=== PATIENT | female | born 1930 | race Caucasian/White ===

== ENCOUNTER 2018-05-17 08:26 | Emergency (ER) | payer MEDICARE, BC ==
[2018-05-17] MEDS ORDERED: Sodium Chloride 0.9% 10 ML Syringe FLUSH PRN (09:01)
[2018-05-17] MEDS ORDERED: Ondansetron 4 MG/2 ML SDV IVPUSH ONE (09:01)
[2018-05-17] MEDS ORDERED: Sodium Chloride 0.9% 1,000 ML IV SCH (09:15)
--- NOTE | 2018-05-17 11:10 | EDM.PDOC ---
ED HPI GENERAL MEDICAL PROBLEM - General Chief Complaint: Gastrointestinal Problem Stated Complaint: [facility] ABD[facility] Time Seen by Provider: 05/17/18 08:42 Source of Information: Reports: Patient, Family (Daughter), RN Notes Reviewed - History of Present Illness INITIAL COMMENTS - FREE TEXT/NARRATIVE: 88-year-old lady has been brought here by [facility] for evaluation of abdominal discomfort, nausea and nonspecific dizziness. She states she awakened in a "sweat" about 2 or 3 hours ago, fill somewhat lightheaded and dizzy for a period of time. She also did have some nausea but did not vomit. She has had no chest pain this morning or difficulty breathing. She continues to feel very mildly nauseated. She denies vertigo. She has no headache chest or abdominal pain at this time. She has had some constipation off and on. She had been taking MiraLAX in the past but not currently taking that. No melena or hematochezia. She last had a colonoscopy about 7 or 8 years ago. - Related Data Allergies Allergy/AdvReac Type Severity Reaction Status Date / Time Penicillins Allergy Rash Verified 01/13/18 14:53 Home Meds: Home Meds Aspirin [Halfprin] 81 mg PO BEDTIME 09/26/13 [History] Cholecalciferol (Vitamin D3) [Vitamin D3] 2,000 units PO DAILY 09/26/13 [History ] Losartan Potassium 50 mg PO QAM 08/27/14 [History] Metoprolol Succinate [Toprol XL] 200 mg PO BEDTIME 08/27/14 [History] DULoxetine [Cymbalta] 20 mg PO DAILY 12/19/17 [History] Polyethylene Glycol 3350 [MiraLAX] 17 gm PO DAILY #1 canister 12/19/17 [Rx] Rosuvastatin Calcium 10 mg PO BEDTIME 01/13/18 [History] Triamcinolone Acetonide [Triamcinolone Acetonide 0.1% Crm] 1 dose TOP BID [History] amLODIPine Besylate [Amlodipine Besylate] 10 mg PO DAILY 01/13/18 [History] Meclizine HCl 12.5 mg PO Q4H PRN 05/17/18 [History] Ondansetron [Zofran ODT] 4 mg PO Q8HR PRN #10 tab.dis 05/17/18 [Rx] Past Medical History HEENT 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: Hard of Hearing, Impaired Vision Other HEENT History: 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 Cardiovascular 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: Arrhythmia, Pacemaker Respiratory 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: Other (See Below) Other Respiratory History: cough Gastrointestinal 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: GERD Other Gastrointestinal History: bloating, small intestine bacterial overgrowth, nausea and vomiting Genitourinary 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: UTI, Recurrent [employer] 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: Other [employer]ER History: endometrial thickening, atrophic vaginitis, vaginal pruritis, pelvic pain Musculoskeletal 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: Back Pain, Chronic, Other (See Below) Other Musculoskeletal History: spinal stinosis repair Neurological 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: Migraines Other Neuro History: 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, increasing headaches/head pains Psychiatric 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: Anxiety, Depression, Other (See Below) Other Psychiatric History: insomnia Endocrine/Metabolic 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: Other (See Below) Other Endocrine/Metabolic History: inappropriate ADH production Hematologic 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: Anemia Immunologic 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: None Oncologic (Cancer) 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: None Dermatologic 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: Other (See Below) Other Dermatologic History: pruritis, seborrheic keratosis - Past Surgical History Head Surgeries/Procedures: Reports: None Respiratory Surgical 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: None Female Surgical 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: None Endocrine Surgical 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: None Other Musculoskeletal Surgeries/Procedures:: right hip replacement 7 years ago Oncologic Surgical 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: None Dermatological Surgical 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: None Social & Family History - Family History Family Medical History: Noncontributory Cardiac: Reports: CAD Oncologic: Reports: Breast - Tobacco Use Smoking Status *Q: Former Smoker Used Tobacco, but Quit: Yes Month/Year Tobacco Last Used: many years ago - Caffeine Use Caffeine Use: Reports: Coffee - Recreational Drug Use Recreational Drug Use: No - Living Situation & Occupation Living situation: Reports: Occupation: Retired ED ROS GENERAL - Review of Systems Review Of Systems: See Below Constitutional: Reports: Diaphoresis. Denies: Fever, Chills HEENT: Denies: Sinus Problem, Throat Pain (Gone) Respiratory: Denies: Shortness of Breath, Wheezing, Pleuritic Chest Pain, Cough Cardiovascular: Denies: Chest Pain Endocrine: Reports: Fatigue GI/Abdominal: Reports: Abdominal Pain, Constipation, Nausea (Gone). Denies: Diarrhea, Hematochezia, Melena (Occasional) Musculoskeletal: Denies: Neck Pain, Shoulder Pain, Arm Pain Skin: Reports: No Symptoms Neurological: Reports: Dizziness (No better). Denies: Trouble Speaking (No focal weakness), Weakness ED EXAM, GI/ABD - Physical Exam Exam: See Below General Appearance: Alert, No Apparent Distress Eyes: Bilateral: Normal Appearance Throat/Mouth: Normal Inspection, Normal Oropharynx Head: Atraumatic Neck: Supple, Full Range of Motion Respiratory/Chest: No Respiratory Distress, Lungs Clear, Normal Breath Sounds Cardiovascular: Regular Rate, Rhythm GI/Abdominal Exam: Soft, Non-Tender. No: Guarding Rectal (Female) Exam: Normal Exam, Normal Rectal Tone, Heme - Stool, Other (No mass palpable) Back Exam: No: CVA Tenderness (L), CVA Tenderness (R) Extremities: Normal Inspection. No: Pedal Edema, Leg Pain, Increased Warmth, Redness Neurological: Alert, Oriented, No Motor/Sensory Deficits Skin Exam: Warm, Dry, Normal Color EKG INTERPRETATION EKG Date: 05/17/18 Rhythm: Other (Paced rhythm) Rate (Beats/Min): 60 Course - Vital Signs Last Recorded V/S: Last Vital Signs Temp 97.3 F 05/17/18 08:43 Pulse 62 05/17/18 08:43 Resp 16 05/17/18 08:43 BP 157/74 H 05/17/18 08:43 Pulse Ox 98 05/17/18 08:43 - Orders/Labs/Meds Orders: Active Orders 24 hr Category Date Time Status EKG 12 Lead [EKG Documentation Completion] [RC] STAT Care 05/17/18 09:01 Active Peripheral IV Care [RC] . DIRECTED Care 05/17/18 09:02 Active Sodium Chloride 0.9% [Normal Saline] 1,000 ml Med 05/17/18 09:15 Active IV ASDIRECTED Sodium Chloride 0.9% [Saline Flush] Med 05/17/18 09:01 Active 10 ml FLUSH ASDIRECTED PRN Peripheral IV Insertion Adult [OM.PC] Stat Oth 05/17/18 09:01 Ordered Medication Orders Sodium Chloride (Normal Saline) 1,000 mls @ 150 mls/hr IV ASDIRECTED KYLE Last Admin: 05/17/18 09:11 Dose: 150 mls/hr Sodium Chloride (Saline Flush) 10 ml FLUSH ASDIRECTED PRN PRN Reason: Keep Vein Open Last Admin: 05/17/18 09:11 Dose: 10 ml Labs: Laboratory Tests 05/17/18 05/17/18 05/17/18 Range/Units 08:45 08:45 08:45 WBC 9.27 (3.98-10.04) K/mm3 RBC 4.21 (3.98-5.22) M/mm3 Hgb 13.9 (11.2-15.7) gm/L Hct 41.7 (34.1-44.9) % MCV 99.0 H (79.4-94.8) fl MCH 33.0 H (25.6-32.2) pg MCHC 33.3 (32.2-35.5) g/dl RDW Std Deviation 43.6 (36.4-46.3) fL Plt Count 251 (182-369) K/mm3 MPV 9.6 (9.4-12.3) fl Neut % (Auto) 84.2 H (34.0-71.1) % Lymph % (Auto) 8.6 L (19.3-51.7) % [place] % (Auto) 6.6 (4.7-12.5) % Eos % (Auto) 0.3 L (0.7-5.8) Baso % (Auto) 0.1 (0.1-1.2) % Neut # (Auto) 7.80 H (1.56-6.13) K/mm3 Lymph # (Auto) 0.80 L (1.18-3.74) K/mm3 [place] # (Auto) 0.61 H (0.24-0.36) K/mm3 Eos # (Auto) 0.03 L (0.04-0.36) K/mm3 Baso # (Auto) 0.01 (0.01-0.08) K/mm3 Manual Slide Review Normal smear Sodium 135 L (136-145) mEq/L Potassium 3.6 (3.5-5.1) mEq/L Chloride 98 (98-107) mEq/L Carbon Dioxide 29 (21-32) mEq/L Anion Gap 11.6 (5-15) BUN 11 (7-18) mg/dL Creatinine 0.6 (0.55-1.02) mg/dL Est Cr Clr Drug Dosing 64.24 mL/min Estimated GFR (MDRD) > 60 (>60) mL/min BUN/Creatinine Ratio 18.3 H (14-18) Glucose 124 H (83-115) mg/dL Calcium 9.2 (8.5-10.1) mg/dL Total Bilirubin 0.9 (0.2-1.0) mg/dL AST 25 (15-37) U/L ALT 24 (14-59) U/L Alkaline Phosphatase 78 (46-116) U/L Troponin I < 0.017 (0.00-0.056) ng/mL C-Reactive Protein < 0.2 (<1.0) mg/dL Total Protein 8.4 H (6.4-8.2) g/dl Albumin 4.4 (3.4-5.0) g/dl Globulin 4.0 gm/dL Albumin/Globulin Ratio 1.1 (1-2) Urine Color (Yellow) Urine Appearance (Clear) Urine pH (5.0-8.0) Ur Specific [place] (1.005-1.030) Urine Protein (Negative) Urine Glucose (UA) (Negative) Urine Ketones (Negative) Urine Occult Blood (Negative) Urine Nitrite (Negative) Urine Bilirubin (Negative) Urine Urobilinogen (0.2-1.0) Ur Leukocyte Esterase (Negative) Urine RBC (0-5) /hpf Urine WBC (0-5) /hpf Ur Epithelial Cells (0-5) /hpf Amorphous Sediment (NOT SEEN) /hpf Urine Bacteria (FEW) /hpf Urine Mucus (FEW) /hpf 05/17/18 Range/Units 08:50 WBC (3.98-10.04) K/mm3 RBC (3.98-5.22) M/mm3 Hgb (11.2-15.7) gm/L Hct (34.1-44.9) % MCV (79.4-94.8) fl MCH (25.6-32.2) pg MCHC (32.2-35.5) g/dl RDW Std Deviation (36.4-46.3) fL Plt Count (182-369) K/mm3 MPV (9.4-12.3) fl Neut % (Auto) (34.0-71.1) % Lymph % (Auto) (19.3-51.7) % [place] % (Auto) (4.7-12.5) % Eos % (Auto) (0.7-5.8) Baso % (Auto) (0.1-1.2) % Neut # (Auto) (1.56-6.13) K/mm3 Lymph # (Auto) (1.18-3.74) K/mm3 [place] # (Auto) (0.24-0.36) K/mm3 Eos # (Auto) (0.04-0.36) K/mm3 Baso # (Auto) (0.01-0.08) K/mm3 Manual Slide Review Sodium (136-145) mEq/L Potassium (3.5-5.1) mEq/L Chloride (98-107) mEq/L Carbon Dioxide (21-32) mEq/L Anion Gap (5-15) BUN (7-18) mg/dL Creatinine (0.55-1.02) mg/dL Est Cr Clr Drug Dosing mL/min Estimated GFR (MDRD) (>60) mL/min BUN/Creatinine Ratio (14-18) Glucose (83-115) mg/dL Calcium (8.5-10.1) mg/dL Total Bilirubin (0.2-1.0) mg/dL AST (15-37) U/L ALT (14-59) U/L Alkaline Phosphatase (46-116) U/L Troponin I (0.00-0.056) ng/mL C-Reactive Protein (<1.0) mg/dL Total Protein (6.4-8.2) g/dl Albumin (3.4-5.0) g/dl Globulin gm/dL Albumin/Globulin Ratio (1-2) Urine Color Yellow (Yellow) Urine Appearance Clear (Clear) Urine pH 7.5 (5.0-8.0) Ur Specific [place] 1.020 (1.005-1.030) Urine Protein Negative (Negative) Urine Glucose (UA) Negative (Negative) Urine Ketones Negative (Negative) Urine Occult Blood Negative (Negative) Urine Nitrite Negative (Negative) Urine Bilirubin Negative (Negative) Urine Urobilinogen 0.2 (0.2-1.0) Ur Leukocyte Esterase Negative (Negative) Urine RBC 0-5 (0-5) /hpf Urine WBC 0-5 (0-5) /hpf Ur Epithelial Cells 0-5 (0-5) /hpf Amorphous Sediment Few H (NOT SEEN) /hpf Urine Bacteria Few (FEW) /hpf Urine Mucus Few (FEW) /hpf Meds: Medications Generic Name Dose Route Start Last Admin Trade Name Freq PRN Reason Stop Dose Admin Sodium Chloride 1,000 mls @ 150 mls/hr 05/17/18 09:15 05/17/18 09:11 Normal Saline IV 150 mls/hr ASDIRECTED KYLE Administration Sodium Chloride 10 ml 05/17/18 09:01 05/17/18 09:11 Saline Flush FLUSH 10 ml ASDIRECTED PRN Administration Keep Vein Open Discontinued Medications Generic Name Dose Route Start Last Admin Trade Name Freq PRN Reason Stop Dose Admin Ondansetron HCl 4 mg 05/17/18 09:01 05/17/18 09:11 Zofran IVPUSH 05/17/18 09:02 4 mg ONETIME ONE Administration - Re-Assessments/Exams Free Text/Narrative Re-Assessment/Exam: 05/17/18 11:27 EKG showed paced rhythm as documented. White blood count, chemistries normal, troponin normal. I did review flat and upright of 2 days ago which shows generous stool in the colon but no obvious abnormality. No mass palpable on rectal exam. Stool was brown, heme-negative, she feels better after some IV fluid and IV Zofran. Discharge instructions as documented. Departure - Departure Time of Disposition: 11:09 Disposition: Home, Self-Care 01 Condition: Fair Clinical Impression: Dizziness, Nausea - Discharge Information Prescriptions: Ondansetron [Zofran ODT] 4 mg PO Q8HR PRN #10 tab.dis PRN Reason: Nausea/Vomiting Instructions: Nausea, Adult, Dizziness, [id number] Referrals: PCP,None [Primary Care Provider] - Forms: ED Department Discharge Additional Instructions: Clear liquids and very bland diet as tolerated, continue current medications as prescribed, drink plenty of water to maintain hydration. miralax daily as needed, stool softner once or twice daily as needed. See Kristin back at the clinic Saturday or Saturday and work hard for referral for colonoscopy, upper GI endoscopy as soon as possible. Zofran 4 mg ODT Q8 hours if needed for further nausea or vomiting. Return to ED as needed if symptoms worsening in any way. - My Orders Last 24 Hours: My Active Orders 05/17/18 09:01 EKG 12 Lead [EKG Documentation Completion] [RC] STAT Sodium Chloride 0.9% [Saline Flush] 10 ml FLUSH ASDIRECTED PRN Peripheral IV Insertion Adult [OM.PC] Stat 05/17/18 09:02 Peripheral IV Care [RC] . DIRECTED 05/17/18 09:15 Sodium Chloride 0.9% [Normal Saline] 1,000 ml IV ASDIRECTED - Assessment/Plan Last 24 Hours: My Active Orders 05/17/18 09:01 EKG 12 Lead [EKG Documentation Completion] [RC] STAT Sodium Chloride 0.9% [Saline Flush] 10 ml FLUSH ASDIRECTED PRN Peripheral IV Insertion Adult [OM.PC] Stat 05/17/18 09:02 Peripheral IV Care [RC] . DIRECTED 05/17/18 09:15 Sodium Chloride 0.9% [Normal Saline] 1,000 ml IV ASDIRECTED
[2018-05-17 11:45] VITALS: BP 132/52
== END 2018-05-17 11:45 | disposition home or self-care (01) ==
LOC: JD.ED 08:26
DX: R11.0 Nausea (principal); R42 Dizziness and giddiness; K21.9 Gastro-esophageal reflux disease without esophagitis; F41.9 Anxiety disorder, unspecified; F32.9 Major depressive disorder, single episode, unspecified; Z87.891 Personal history of nicotine dependence; Z88.0 Allergy status to penicillin; Z79.899 Other long term (current) drug therapy; Z79.82 Long term (current) use of aspirin
CPT/HCPCS: 36415; 80053; 81001; 84484; 85025; 86140; 93005; 96361; 96374; 99284; J2405; J7040; 93010; 99283

== ENCOUNTER 2019-04-06 07:30 | Inpatient (IN) | payer MEDICARE, BC ==
[~2019-04-06 07:30] MED LIST: Bisacodyl 5 MG Tab PO PRN; Ketamine 500 mg/10 ML MDV ONE; Ketorolac 30 MG/ML SDV ONE; Lactated Ringers 0 ML ONE; Lactated Ringers 1,000 ML IV SCH; Lactated Ringers 1,000 ML ONE; Lidocaine 1% 0 ML ONE; Lidocaine 1% 6 ML ONE; Lidocaine 1%/Sod Bicarbonate in NS 8.4% 1 ML Syringe IDERM PRN; Magnesium Hydroxide 400 MG/5 ML Susp 30 ML Cup PO PRN; Midazolam 1 MG/ML 2 ML SDV ONE; Morphine 2 MG/ML Syringe IVPUSH PRN; Morphine 8 MG, EPINEPHrine 0.3 MG, Cefuroxime 750 MG, Ketorolac 30 MG, Sodium Chloride ... PRN; Naloxone 0.4 MG/ML SDV IVPUSH PRN; Ondansetron 4 MG/2 ML SDV IVPUSH PRN; Ondansetron 4 MG/2 ML SDV ONE; Propofol 200 MG/20 ML SDV ONE; Sennosides 8.6 MG Tab PO PRN; Sodium Chloride 0.9% 10 ML Syringe FLUSH PRN; ceFAZolin 1 GM Vial ONE; fentaNYL 100 MCG/2 ML SDV ONE
[2019-04-06] MEDS ORDERED: ceFAZolin 1 GM Vial ONE (10:29)
[2019-04-06] MEDS ORDERED: Iodine/Sodium Iodide 2% Tincture 30 ML Bottle ONE (10:29)
[2019-04-06] MEDS ORDERED: Vancomycin 1 GM SDV ONE (10:29)
[2019-04-06] MEDS ORDERED: Bupivacaine 0.25% 10 ML SDV ONE (10:29)
--- NOTE | 2019-04-06 11:06 | PCM.PREANE ---
Preanesthetic Assessment - Anesthesia/Transfusion/Family Hx Anesthesia History: Prior Anesthesia Without Reaction Family History of Anesthesia Reaction: No Transfusion History: No Prior Transfusion(s) Intubation History: Unknown - Review of Systems General: No Symptoms Pulmonary: Other Cardiovascular: Other (pacemaker, CHF, HTN, ) Gastrointestinal: Other (GERD, controlled on meds) Other: Reports: Easy Bleeding, Easy Bruising, Diabetes - Physical Assessment NPO Status Date: 04/05/19 ASA Class: 3 Mental Status: Alert & Oriented x3 Dentition: Reports: Dentures, Partial (lower) Thyro-Mental Finger Breadths: 3 Mouth Opening Finger Breadths: 3 ROM/Head Extension: Full Lungs: Clear to Auscultation, Normal Respiratory Effort Cardiovascular: Regular Rate, Regular Rhythm - Lab Values: Laboratory Last Values POC Glucose 108 mg/dL (83-110) 04/06/19 10:13 MRSA (PCR) Negative 03/11/19 16:18 - Allergies Allergies/Adverse Reactions: Allergies Allergy/AdvReac Type Severity Reaction Status Date / Time ciprofloxacin Allergy Rash Verified 04/03/19 11:39 Penicillins Allergy Rash Verified 04/03/19 11:39 - Anesthesia Plan Beta Wilman: Metoprolol - Acknowledgements Anesthesia Type Planned: Spinal Pt an Appropriate Candidate for the Planned Anesthesia: Yes Alternatives and Risks of Anesthesia Discussed w Pt/Guardian: Yes Pt/Guardian Understands and Agrees with Anesthesia Plan: Yes PreAnesthesia Questionnaire HEENT 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: Allergic Rhinitis, Hard of Hearing, Impaired Vision Other HEENT History: eustachian tube dysfunction, impacted cerumen, chronic hoarseness, wears glasses, has hearing aids, has dentures Cardiovascular 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: Afib, Arrhythmia, Heart Failure, Hypertension, Pacemaker Respiratory 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: COPD, Other (See Below) Other Respiratory History: cough Gastrointestinal 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: Gastritis, GERD, Hemorrhoids, Irritable Bowel Syndrome Other Gastrointestinal History: bloating, small intestine bacterial overgrowth, nausea and vomiting, epigastric pain, candidia esophagitis Genitourinary 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: UTI, Recurrent BREAD ROOM HAND 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: , Other (See Below) Other OB/BYN History: endometrial thickening, atrophic vaginitis, vaginal pruritis, pelvic pain Musculoskeletal 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: Back Pain, Chronic, Osteoarthritis, Osteoporosis, Other (See Below) Other Musculoskeletal History: left 3rd toe fracute, bursitis, polymyalgia rheumatica, right knee pain, sacroilitis Neurological 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: Migraines Other Neuro History: traumatic subdural hematoma, neuralgia, peripheral sensory neuropathy, dizziness, notalgia parestetica, cervical stenosis, trigeminal neuralgia Psychiatric 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: Anxiety, Depression, Other (See Below) Other Psychiatric History: insomnia Endocrine/Metabolic 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: Vitamin D Deficiency, Other (See Below) Other Endocrine/Metabolic History: inappropriate ADH production Hematologic 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: Anemia, Other (See Below) Other Hematologic History: hyponatremia Immunologic 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: None Oncologic (Cancer) 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: None Dermatologic 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: Other (See Below) Other Dermatologic History: pruritis, seborrheic keratosis - Past Surgical History Head Surgeries/Procedures: Reports: None HEENT Surgical 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: Cataract Surgery Cardiovascular Surgical 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: None Respiratory Surgical 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: None GI Surgical 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: Colonoscopy Female Surgical 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: None Male Surgical 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: None Endocrine Surgical 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: None Neurological Surgical 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: Other (See Below) Other Neurological Surgeries/Procedures: spinal surgery Musculoskeletal Surgical 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: Hip Replacement Other Musculoskeletal Surgeries/Procedures:: right total hip, t7 kyphoplasty, elbow surgery Oncologic Surgical 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: None Dermatological Surgical 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: None - SUBSTANCE USE Smoking Status *Q: Never Smoker Recreational Drug Use History: No - HOME MEDS Home Medications: Home Meds Losartan Potassium 50 mg PO QAM 08/27/14 [History] Metoprolol Succinate [Toprol XL] 100 mg PO BID 08/27/14 [History] DULoxetine [Cymbalta] 20 mg PO DAILY 12/19/17 [History] Rosuvastatin Calcium 10 mg PO BEDTIME 01/13/18 [History] Triamcinolone Acetonide [Triamcinolone Acetonide 0.1% Crm] 1 dose TOP BID [History] Apixaban [Eliquis] 5 mg PO BID 04/03/19 [History] Cholecalciferol (Vitamin D3) [Vitamin D3] 5,000 unit PO DAILY 04/03/19 [History] Cranberry Fruit Extract [Cranberry] 200 mg PO DAILY 04/03/19 [History] Docusate Sodium [Colace] 100 mg PO BID PRN 04/03/19 [History] Fluticasone Propionate [Flonase] 1 dose NASBOTH BID PRN 04/03/19 [History] Linaclotide [Linzess] 72 mcg PO DAILY 04/03/19 [History] Omeprazole 20 mg PO DAILY 04/03/19 [History] Sodium Chloride 1,000 - 2,000 mg PO DAILY 04/03/19 [History] amLODIPine Besylate [Amlodipine Besylate] 10 mg PO DAILY 04/03/19 [History] - CURRENT (IN HOUSE) MEDS Current Meds: Current Medications Hydrocodone Bitart/Acetaminophen ([place] 325-5 Mg) 1 - 2 tab PO Q4H PRN PRN Reason: Pain Bisacodyl (Dulcolax) 5 mg PO DAILY PRN PRN Reason: Constipation Morphine Sulfate 8 mg/Epinephrine HCl 0.3 mg/Cefuroxime Sodium 750 mg/Ketorolac Tromethamine 30 mg/Sodium Chloride 7.9 ml 0 mg .XX ASDIRECTED PRN PRN Reason: Pain Stop: 04/06/19 14:00 Famotidine (Pepcid) 20 mg PO Q12H KYLE Lactated Ringer's (Ringers, Lactated) 1,000 mls @ 125 mls/hr IV ASDIRECTED KYLE Stop: 04/06/19 23:00 Cefazolin Sodium/Dextrose 2 gm (/ Premix) 50 mls @ 100 mls/hr IV Q8H [facility] Stop: 04/07/19 07:29 Lidocaine/Sodium Bicarbonate (Buffered Lidocaine 1% In Ns 8.4%) 0.25 ml IDERM ONETIME PRN PRN Reason: Prior to IV Start Stop: 04/06/19 18:00 Magnesium Hydroxide (Milk Of Magnesia) 30 ml PO BID PRN PRN Reason: Constipation Morphine Sulfate (Morphine) 2 mg IVPUSH Q2H PRN PRN Reason: Breakthrough Pain Naloxone HCl (Narcan) 0.1 mg IVPUSH Q5M PRN PRN Reason: Oversedation Ondansetron HCl (Zofran) 4 mg IVPUSH Q6H PRN PRN Reason: Nausea/Vomiting Senna (Senna) 8.6 mg PO BID PRN PRN Reason: Constipation Sodium Chloride (Saline Flush) 10 ml FLUSH ASDIRECTED PRN PRN Reason: Keep Vein Open Stop: 04/06/19 18:00 Discontinued Medications Bupivacaine HCl (Sensorcaine-Mpf 0.25%) Confirm Administered Dose 30 ml .ROUTE .STK-MED ONE Stop: 04/06/19 10:30 Cefazolin Sodium (Ancef) Confirm Administered Dose 2 gm .ROUTE .ST-MED ONE Stop: 04/06/19 06:04 Cefazolin Sodium (Ancef) Confirm Administered Dose 2 gm .ROUTE .ST-MED ONE Stop: 04/06/19 06:30 Cefazolin Sodium (Ancef) Confirm Administered Dose 2 gm .ROUTE .ST-MED ONE Stop: 04/06/19 10:30 Fentanyl (Sublimaze) Confirm Administered Dose 100 mcg .ROUTE .ST-MED ONE Stop: 04/06/19 06:04 Fentanyl (Sublimaze) Confirm Administered Dose 100 mcg .ROUTE .ST-MED ONE Stop: 04/06/19 06:30 Lidocaine HCl (Xylocaine-Mpf 1%) Confirm Administered Dose 6 mls @ as directed .ROUTE .[facility]-MED ONE Stop: 04/06/19 06:04 Lactated Ringer's (Ringers, Lactated) Confirm Administered Dose 1,000 mls @ as directed .ROUTE .ST-MED ONE Stop: 04/06/19 06:04 Lactated Ringer's (Ringers, Lactated) Confirm Administered Dose 1,000 mls @ as directed .ROUTE .ST-MED ONE Stop: 04/06/19 06:29 Lidocaine HCl (Xylocaine-Mpf 1%) Confirm Administered Dose 6 mls @ as directed .ROUTE .ST-MED ONE Stop: 04/06/19 06:30 Iodine (Iodine 2% Mild Tincture) Confirm Administered Dose 30 ml .ROUTE .ST- MED ONE Stop: 04/06/19 10:30 Ketamine HCl (Ketalar) Confirm Administered Dose 500 mg .ROUTE .STK-MED ONE Stop: 04/06/19 06:05 Ketamine HCl (Ketalar) Confirm Administered Dose 500 mg .ROUTE .ST-MED ONE Stop: 04/06/19 06:31 Ketorolac Tromethamine (Toradol) Confirm Administered Dose 30 mg .ROUTE .STK- MED ONE Stop: 04/06/19 06:04 Midazolam HCl (Versed 1 Mg/Ml) Confirm Administered Dose 2 mg .ROUTE .ST-MED ONE Stop: 04/06/19 06:04 Midazolam HCl (Versed 1 Mg/Ml) Confirm Administered Dose 2 mg .ROUTE .STK-MED ONE Stop: 04/06/19 06:31 Miscellaneous Medication (Phenylephrine 1 Mg/10 Ml-Ns) Confirm Administered Dose 1 mg IV .STK-MED ONE Stop: 04/06/19 06:04 Miscellaneous Medication (Phenylephrine 1 Mg/10 Ml-Ns) Confirm Administered Dose 1 mg IV .STK-MED ONE Stop: 04/06/19 06:30 Ondansetron HCl (Zofran) Confirm Administered Dose 4 mg .ROUTE .STK-MED ONE Stop: 04/06/19 06:04 Ondansetron HCl (Zofran) Confirm Administered Dose 4 mg .ROUTE .STK-MED ONE Stop: 04/06/19 06:30 Propofol (Diprivan 20 Ml) Confirm Administered Dose 400 mg .ROUTE .STK-MED ONE Stop: 04/06/19 06:04 Propofol (Diprivan 20 Ml) Confirm Administered Dose 400 mg .ROUTE .STK-MED ONE Stop: 04/06/19 06:30 Tranexamic Acid (Cyklokapron) Confirm Administered Dose 1,000 mg .ROUTE .STK- MED ONE Stop: 04/06/19 10:29 Vancomycin HCl (Vancomycin) Confirm Administered Dose 1 gm .ROUTE .STK-MED ONE Stop: 04/06/19 10:30
--- NOTE | 2019-04-06 11:39 | PCM.CONS ---
H&P History of Present Illness - General Date of Service: 04/06/19 Admit Problem/Dx: Admission Diagnosis/Problem Admission Diagnosis/Problem Osteoarthritis of hip Source of Information: Patient, Old Records, Provider, RN, RN Notes Reviewed History Limitations: Reports: No Limitations - History of Present Illness Initial Comments - Free Text/Narative: Shae Lane is an 89 yo female patient of Dr. Corbin who is post-operative day 0 of left FABI. Hospital medicine was consulted for post-operative medical care of the following listed medical conditions. At this time she is resting comfortably in bed. Pain is controlled. She denies any chest pain, shortness of breath, palpitations, nausea, or vomiting. She carries a history of: Paroxysmal A-Fib, HTN, HLD, Pacemaker, Chronic anticoagulation, GERD, Polymyalgia Rheumatica, COPD, Hx/o subdural hematoma 2/2 a fall, Anxiety, Arthritis, Cardiomegaly, Depression, CHF with diastolic dysfunction, Diverticulosis, Dizzy spells, Edema, Elevated fasting glucose, Headache, Hiatal hernia, Hyponatremia, IBS, Insomnia, Mitral valve prolapse with mitral regurgitation, Overactive bladder, Osteoporosis, Peripheral sensory neuropathy, Recurrent UTIs, SIADH, Small intestine disorder, Sick sinus syndrome, TMJ, Trigeminal neuralgia, Umbilical hernia, notalgia paresthetica, Cervical stenosis, Vitamin D deficiency , Anemia, Migraines. She was never a smoker. She is a full code. Her primary care provider is Jennifer Hayes PA-C . Left Hip Pain Score (Numeric/FACES): 0 - Related Data Allergies/Adverse Reactions: Allergies Allergy/AdvReac Type Severity Reaction Status Date / Time ciprofloxacin Allergy Rash Verified 04/06/19 11:26 Penicillins Allergy Rash Verified 04/06/19 11:26 Home Medications: Home Meds Losartan Potassium 50 mg PO QAM 08/27/14 [History] Triamcinolone Acetonide [Triamcinolone Acetonide 0.1% Crm] 1 dose TOP ASDIRECTED PRN 01/13/18 [History] Apixaban [Eliquis] 5 mg PO BID 04/03/19 [History] Cholecalciferol (Vitamin D3) [Vitamin D3] 5,000 unit PO DAILY 04/03/19 [History] Cranberry Fruit Extract [Cranberry] 200 mg PO DAILY 04/03/19 [History] Fluticasone Propionate [Flonase] 1 dose NASBOTH BID PRN 04/03/19 [History] Linaclotide [Linzess] 72 mcg PO TIDMEALS 04/03/19 [History] Sodium Chloride 1,000 mg PO BID 04/03/19 [History] amLODIPine Besylate [Amlodipine Besylate] 10 mg PO DAILY 04/03/19 [History] DULoxetine [Cymbalta] 20 mg PO DAILY 04/06/19 [History] Docusate Sodium/Sennosides [Senna Plus] 2 tab PO BEDTIME 04/06/19 [History] Ketotifen Fumarate [Zaditor] 1 drop OP ASDIRECTED PRN 04/06/19 [History] Loratadine 10 mg PO DAILY 04/06/19 [History] Metoprolol Tartrate 100 mg PO BID 04/06/19 [History] Pantoprazole Sodium [Protonix] 40 mg PO DAILY 04/06/19 [History] Rosuvastatin [Crestor] 5 mg PO BEDTIME 04/06/19 [History] Past Medical History HEENT 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: Allergic Rhinitis, Hard of Hearing, Impaired Vision Other HEENT History: eustachian tube dysfunction, impacted cerumen, chronic hoarseness, wears glasses, has hearing aids, has dentures Cardiovascular 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: Afib, Arrhythmia, Heart Failure, Hypertension, Pacemaker Respiratory 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: COPD, Other (See Below) Other Respiratory History: cough Gastrointestinal 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: Gastritis, GERD, Hemorrhoids, Irritable Bowel Syndrome Other Gastrointestinal History: bloating, small intestine bacterial overgrowth, nausea and vomiting, epigastric pain, candidia esophagitis Genitourinary 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: UTI, 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: , Other (See Below) Other OB/BYN History: endometrial thickening, atrophic vaginitis, vaginal pruritis, pelvic pain Musculoskeletal 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: Back Pain, Chronic, Osteoarthritis, Osteoporosis, Other (See Below) Other Musculoskeletal History: left 3rd toe fracute, bursitis, polymyalgia rheumatica, right knee pain, sacroilitis Neurological 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: Migraines Other Neuro History: traumatic subdural hematoma, neuralgia, peripheral sensory neuropathy, dizziness, notalgia parestetica, cervical stenosis, trigeminal neuralgia Psychiatric 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: Anxiety, Depression, Other (See Below) Other Psychiatric History: insomnia Endocrine/Metabolic 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: Vitamin D Deficiency, Other (See Below) Other Endocrine/Metabolic History: inappropriate ADH production Hematologic 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: Anemia, Other (See Below) Other Hematologic History: hyponatremia Immunologic 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: None Oncologic (Cancer) 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: None Dermatologic 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: Other (See Below) Other Dermatologic History: pruritis, seborrheic keratosis - Past Surgical History Head Surgeries/Procedures: Reports: None HEENT Surgical 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: Cataract Surgery Cardiovascular Surgical 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: None Respiratory Surgical 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: None GI Surgical 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: Colonoscopy Female Surgical 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: None Male Surgical 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: None Endocrine Surgical 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: None Neurological Surgical 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: Other (See Below) Other Neurological Surgeries/Procedures: spinal surgery Musculoskeletal Surgical 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: Hip Replacement Other Musculoskeletal Surgeries/Procedures:: right total hip, t7 kyphoplasty, elbow surgery Oncologic Surgical 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: None Dermatological Surgical 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: None Social & Family History - Family History Family Medical History: Noncontributory Cardiac: Reports: CAD Oncologic: Reports: Breast - Tobacco Use Smoking Status *Q: Never Smoker - Caffeine Use Caffeine Use: Reports: Coffee - Recreational Drug Use Recreational Drug Use: No Drug Use in Last 12 Months: No - Living Situation & Occupation Living situation: Reports: Occupation: Retired H&P Review of Systems - Review of Systems: Review Of Systems: See Below General: Reports: No Symptoms. Denies: Fever, Chills HEENT: Reports: No Symptoms. Denies: Headaches, Sore Throat Pulmonary: Reports: No Symptoms. Denies: Shortness of Breath, Wheezing, Pleuritic Chest Pain, Cough, Sputum Cardiovascular: Reports: No Symptoms. Denies: Chest Pain, Palpitations, Dyspnea on Exertion Gastrointestinal: Reports: No Symptoms. Denies: Abdominal Pain, Constipation, Diarrhea, Nausea, Vomiting Genitourinary: Reports: No Symptoms Musculoskeletal: Reports: Leg Pain Skin: Reports: No Symptoms. Denies: Cyanosis Psychiatric: Reports: No Symptoms. Denies: Confusion Neurological: Reports: Difficulty Walking, Gait Disturbance Hematologic/Lymphatic: Reports: No Symptoms. Denies: Anemia Immunologic: Reports: No Symptoms Exam - Exam Exam: See Below - Vital Signs Vital Signs: Last Vital Signs Temp 97.5 F 02/17/20 09:50 Pulse 79 04/06/19 09:50 Resp 18 04/06/19 09:50 BP 159/58 H 04/06/19 11:10 Pulse Ox 93 L 04/06/19 09:50 Weight: 132 lb - Exam Quality Assessment: DVT Prophylaxis General: Alert, Oriented, Cooperative. No: Mild Distress HEENT: Conjunctiva Clear, EACs Clear, Hearing Intact, Mucosa Moist & Sibley, Normal Nasal Septum, Posterior Pharynx Clear, PERRLA Neck: Supple, Trachea Midline Lungs: Clear to Auscultation, Normal Respiratory Effort Cardiovascular: Regular Rate, Regular Rhythm GI/Abdominal Exam: Normal Bowel Sounds, Soft, Non-Tender, No Distention (Female) Exam: Deferred Rectal (Female) Exam: Deferred Back Exam: Normal Inspection, Full Range of Motion Extremities: Normal Capillary Refill, Leg Pain, Limited Range of Motion, Other ( Bandage in place on left leg. Bandage is dry and intact. Cooling pack in place. ) Peripheral Pulses: 2+: Radial (L), Radial (R), Dorsalis Pedis (L), Dorsalis Pedis (R) Skin: Warm, Dry, Intact Neurological: Cranial Nerves Intact (Grossly ) Neuro Extensive - Mental Status: Alert, Oriented x3, Normal Mood/Affect - Patient Data Lab Results Last 24 hrs: Laboratory Results - last 24 hr 04/06/19 04/06/19 Range/Units 10:12 10:13 POC Glucose 108 (83-110) mg/dL Blood Type A POSITIVE Gel Antibody Screen Negative Sepsis Event Note - Focused Exam Vital Signs: Vital Signs Temp Pulse Resp BP Pulse Ox 04/06/19 11:10 159/58 H 04/06/19 09:50 97.5 F 79 18 164/71 H 93 L Date Exam was Performed: 04/06/19 Time Exam was Performed: 16:46 Consult PN Assessment/Plan POD#: 0 Procedures: Procedures AGENT NOS ASSAY W/OPTIC (08/27/14) ASSAY OF AMYLASE (07/25/13) ASSAY OF BLOOD/URIC ACID (07/10/16) ASSAY OF CK (CPK) (07/31/17) ASSAY OF LIPASE (03/06/17) ASSAY OF MAGNESIUM (12/19/17) ASSAY OF NATRIURETIC PEPTIDE (05/02/18) ASSAY OF PREALBUMIN (03/25/19) ASSAY OF TROPONIN QUANT (05/17/18) ASSAY OF URINE OSMOLALITY (04/21/14) ASSAY OF URINE SODIUM (04/21/14) ASSAY THYROID STIM HORMONE (05/02/18) BL SMEAR W/DIFF WBC COUNT (12/19/17) BLOOD CULTURE FOR BACTERIA (08/27/14) C-REACTIVE PROTEIN (05/17/18) CHEST X-RAY 2VW FRONTAL&LATL (08/31/14) COMPLETE CBC AUTOMATED (11/19/18) COMPLETE CBC W/AUTO DIFF WBC (05/17/18) COMPREHEN METABOLIC PANEL (03/25/19) CONTRST X-RAY UPPR GI TRACT (03/15/17) CREATINE MB FRACTION (08/27/14) CT ABD & PELV 1/> REGNS (04/29/14) CT ABD & PELV W/CONTRAST (01/31/16) CT ABD & PELVIS W/O CONTRAST (07/15/13) CT ANGIOGRAPHY CHEST (08/27/14) CT CHEST SPINE W/O DYE (12/19/17) CT HEAD/BRAIN W/O DYE (08/27/14) CT THORAX W/O DYE (09/29/18) CULTURE OTHR SPECIMN AEROBIC (05/07/18) DRAIN/INJ JOINT/BURSA W/O US (01/13/19) DXA BONE DENSITY AXIAL (03/27/19) ELECTROCARDIOGRAM TRACING (05/17/18) EMERGENCY DEPT VISIT (05/17/18) EMERGENCY DEPT VISIT (08/27/14) EMERGENCY DEPT VISIT (09/26/13) EVALUATE PT USE OF INHALER (08/31/14) FIBRIN DEGRADATION QUANT (08/27/14) GLYCOSYLATED HEMOGLOBIN TEST (03/25/19) HPYLORI STOOL IA (02/01/16) HYDRATE IV INFUSION ADD-ON (05/17/18) LIPID PANEL (09/12/18) MEASURE BLOOD OXYGEN LEVEL (08/27/14) METABOLIC PANEL TOTAL CA (07/12/16) MICROBE SUSCEPTIBLE HAYLEE (05/27/17) MR-STAPH DNA AMP PROBE (01/06/18) PERQ VERTEBRAL AUGMENTATION (01/14/18) POLYSOM 6/> YRS 4/> YAN (09/04/16) PROTHROMBIN TIME (03/25/19) RBC SED RATE AUTOMATED (04/13/16) RENAL FUNCTION PANEL (11/03/14) ROUTINE VENIPUNCTURE (05/17/18) SMEAR GRAM STAIN (05/07/18) THER/PROPH/DIAG INJ IV PUSH (05/17/18) THER/PROPH/DIAG IV INF ADDON (08/27/14) THER/PROPH/DIAG IV INF INIT (08/27/14) THROMBOPLASTIN TIME PARTIAL (03/25/19) TRANSVAGINAL US NON-OB (04/19/16) TX/PRO/DX INJ NEW DRUG ADDON (08/27/14) UR ALBUMIN SEMIQUANTITATIVE (07/01/15) URINALYSIS AUTO W/SCOPE (05/17/18) URINE BACTERIA CULTURE (05/27/17) URINE CULTURE/COLONY COUNT (02/02/19) US EXAM ABDO BACK WALL COMP (11/04/17) US EXAM ABDOM COMPLETE (12/17/13) US EXAM PELVIC COMPLETE (12/17/13) VITAMIN B-12 (06/25/18) VITAMIN D 25 HYDROXY (06/25/18) X-RAY EXAM ABDOMEN 2 VIEWS (05/14/18) X-RAY EXAM CHEST 1 VIEW (12/18/17) X-RAY EXAM CHEST 2 VIEWS (03/25/19) X-RAY EXAM KNEE 4 OR MORE (12/16/15) X-RAY EXAM L-S SPINE 2/3 VWS (11/01/16) X-RAY EXAM OF ABDOMEN (07/25/13) X-RAY EXAM OF ABDOMEN (07/10/13) X-RAY EXAM OF TOE(S) (07/12/16) X-RAY EXAM THORAC SPINE 2VWS (03/26/18) (1) Paroxysmal A-fib SNOMED Code(s): 211469670 Code(s): I48.0 - PAROXYSMAL ATRIAL FIBRILLATION Priority: Medium Current Visit: Yes (2) HTN (hypertension) SNOMED Code(s): 89768217 Code(s): I10 - ESSENTIAL (PRIMARY) HYPERTENSION Priority: Medium Current Visit: No Qualifiers: Hypertension type: unspecified Qualified Code(s): I10 - Essential (primary ) hypertension (3) HLD (hyperlipidemia) SNOMED Code(s): 43073118 Code(s): E78.5 - HYPERLIPIDEMIA, UNSPECIFIED Priority: Low Current Visit : No Qualifiers: Hyperlipidemia type: unspecified Qualified Code(s): E78.5 - Hyperlipidemia , unspecified (4) Pacemaker SNOMED Code(s): 258734346 Code(s): Z95.0 - PRESENCE OF CARDIAC PACEMAKER Priority: Medium Current Visit: No (5) Chronic anticoagulation SNOMED Code(s): 892313529 Code(s): Z79.01 - DREDGE BOAT ENGINEER (CURRENT) USE OF ANTICOAGULANTS Priority: Medium Current Visit: No (6) GERD (gastroesophageal reflux disease) SNOMED Code(s): 847147707 Code(s): K21.9 - GASTRO-ESOPHAGEAL REFLUX DISEASE WITHOUT ESOPHAGITIS Priority: Low Current Visit: No Qualifiers: Esophagitis presence: esophagitis presence not specified Qualified Code(s) : K21.9 - Gastro-esophageal reflux disease without esophagitis (7) Polymyalgia rheumatica SNOMED Code(s): 36655494 Code(s): M35.3 - POLYMYALGIA RHEUMATICA Priority: Low Current Visit: No (8) COPD (chronic obstructive pulmonary disease) SNOMED Code(s): 29111796 Code(s): J44.9 - CHRONIC OBSTRUCTIVE PULMONARY DISEASE, UNSPECIFIED Priority: Medium Current Visit: No Qualifiers: COPD type: unspecified COPD Qualified Code(s): J44.9 - Chronic obstructive pulmonary disease, unspecified (9) History of subdural hematoma (post traumatic) SNOMED Code(s): 210858825, 082029808 Code(s): Z87.828 - PERSONAL HISTORY OF OTH (HEALED) PHYSICAL INJURY AND TRAUMA Priority: Low Current Visit: No (10) Anxiety SNOMED Code(s): 92062893 Code(s): F41.9 - ANXIETY DISORDER, UNSPECIFIED Priority: Low Current Visit: No (11) Arthritis SNOMED Code(s): 9099826 Code(s): M19.90 - UNSPECIFIED OSTEOARTHRITIS, UNSPECIFIED SITE Priority: Medium Current Visit: Yes (12) Cardiomegaly SNOMED Code(s): 3787204 Code(s): I51.7 - CARDIOMEGALY Priority: Medium Current Visit: No (13) Chronic cough SNOMED Code(s): 44947253 Code(s): R05 - COUGH Priority: Low Current Visit: No (14) Depression SNOMED Code(s): 81856786 Code(s): F32.9 - MAJOR DEPRESSIVE DISORDER, SINGLE EPISODE, UNSPECIFIED Priority: Low Current Visit: No Qualifiers: Depression Type: unspecified Qualified Code(s): F32.9 - Major depressive disorder, single episode, unspecified (15) Diastolic dysfunction SNOMED Code(s): 1795139 Code(s): I51.89 - OTHER ILL-DEFINED HEART DISEASES Current Visit: Yes (16) Diverticulosis SNOMED Code(s): 068738783 Code(s): K57.90 - DVRTCLOS OF INTEST, PART UNSP, W/O PERF OR ABSCESS W/O BLEED Priority: Low Current Visit: No (17) Dizzy spells SNOMED Code(s): 312460477 Code(s): R42 - DIZZINESS AND GIDDINESS Priority: Low Current Visit: No (18) Edema SNOMED Code(s): 115965626, 082371614 Code(s): R60.9 - EDEMA, UNSPECIFIED Priority: Low Current Visit: No Qualifiers: Edema type: unspecified Qualified Code(s): R60.9 - Edema, unspecified (19) Elevated fasting glucose SNOMED Code(s): 60678075 Code(s): R73.01 - IMPAIRED FASTING GLUCOSE Priority: Low Current Visit: No (20) Hiatal hernia SNOMED Code(s): 50779091 Code(s): K44.9 - DIAPHRAGMATIC HERNIA WITHOUT OBSTRUCTION OR GANGRENE Priority: Low Current Visit: No (21) IBS (irritable bowel syndrome) SNOMED Code(s): 01603174 Code(s): K58.9 - IRRITABLE BOWEL SYNDROME WITHOUT DIARRHEA Priority: Low Current Visit: No Qualifiers: Irritable bowel syndrome type: unspecified Qualified Code(s): K58.9 - Irritable bowel syndrome without diarrhea (22) Insomnia SNOMED Code(s): 451476450 Code(s): G47.00 - INSOMNIA, UNSPECIFIED Priority: Low Current Visit: No Qualifiers: Insomnia type: unspecified Qualified Code(s): G47.00 - Insomnia, unspecified (23) Mitral valve prolapse SNOMED Code(s): 629843994 Code(s): I34.1 - NONRHEUMATIC MITRAL (VALVE) PROLAPSE Priority: Medium Current Visit: Yes (24) Mitral regurgitation SNOMED Code(s): 18636755 Code(s): I34.0 - NONRHEUMATIC MITRAL (VALVE) INSUFFICIENCY Priority: Medium Current Visit: Yes Qualifiers: Cardiac valve disease etiology: etiology unspecified Qualified Code(s): I34.0 - Nonrheumatic mitral (valve) insufficiency (25) Overactive bladder SNOMED Code(s): 974929593 Code(s): N32.81 - OVERACTIVE BLADDER Priority: Low Current Visit: No (26) Osteoporosis SNOMED Code(s): 65591148 Code(s): M81.0 - AGE-RELATED OSTEOPOROSIS W/O CURRENT PATHOLOGICAL FRACTURE Priority: High Current Visit: Yes Qualifiers: Osteoporosis type: unspecified Presence of current pathological fracture: unspecified Qualified Code(s): M81.0 - Age-related osteoporosis without current pathological fracture (27) Peripheral sensory neuropathy SNOMED Code(s): 29690693 Code(s): G62.9 - POLYNEUROPATHY, UNSPECIFIED Priority: Medium Current Visit: No (28) Recurrent UTI SNOMED Code(s): 906017703 Code(s): N39.0 - URINARY TRACT INFECTION, SITE NOT SPECIFIED Priority: Low Current Visit: No (29) SIADH (syndrome of inappropriate ADH production) SNOMED Code(s): 60007771 Code(s): E22.2 - SYNDROME OF INAPPROPRIATE SECRETION OF ANTIDIURETIC HORMONE Priority: Medium Current Visit: No (30) Small intestine disorder SNOMED Code(s): 745808362 Code(s): K63.9 - DISEASE OF INTESTINE, UNSPECIFIED Priority: Medium Current Visit: No (31) Sick sinus syndrome SNOMED Code(s): 83815461 Code(s): I49.5 - SICK SINUS SYNDROME Priority: Medium Current Visit: No (32) Trigeminal neuralgia SNOMED Code(s): 67921290 Code(s): G50.0 - TRIGEMINAL NEURALGIA Priority: Medium Current Visit: No (33) Umbilical hernia SNOMED Code(s): 269231481 Code(s): K42.9 - UMBILICAL HERNIA WITHOUT OBSTRUCTION OR GANGRENE Priority : Low Current Visit: No Qualifiers: Obstruction and gangrene presence: without obstruction or gangrene Qualified Code(s): K42.9 - Umbilical hernia without obstruction or gangrene (34) Headache SNOMED Code(s): 20978328 Code(s): R51 - HEADACHE Priority: Low Current Visit: No Qualifiers: Headache type: unspecified Headache chronicity pattern: unspecified pattern Intractability: not intractable Qualified Code(s): R51 - Headache (35) Hyponatremia SNOMED Code(s): 40054631 Code(s): E87.1 - HYPO-OSMOLALITY AND HYPONATREMIA Priority: Low Current Visit: No (36) TMJ, Temporomandibular [id number]-wtxocytzbnx syndrome, Myofascial Pain SNOMED Code(s): 398333838 Code(s): M26.62 - ARTHRALGIA OF TEMPOROMANDIBULAR JOINT * DO NOT USE * Priority: Low Current Visit: No (37) S/P total hip arthroplasty SNOMED Code(s): 083052035985, 980209806939 Code(s): Z96.649 - PRESENCE OF UNSPECIFIED ARTIFICIAL HIP JOINT Priority: High Current Visit: Yes Qualifiers: Laterality: left Qualified Code(s): Z96.642 - Presence of left artificial hip joint (38) Osteoarthritis SNOMED Code(s): 340827618 Code(s): M19.90 - UNSPECIFIED OSTEOARTHRITIS, UNSPECIFIED SITE Priority: High Current Visit: Yes Qualifiers: Osteoarthritis location: hip Osteoarthritis type: primary Laterality: left Qualified Code(s): M16.12 - Unilateral primary osteoarthritis, left hip (39) Anemia SNOMED Code(s): 944724219 Code(s): D64.9 - ANEMIA, UNSPECIFIED Priority: Medium Current Visit: No Qualifiers: Anemia type: unspecified type Qualified Code(s): D64.9 - Anemia, unspecified (40) Cervical stenosis of spine Priority: Low Current Visit: No (41) Hemorrhoids SNOMED Code(s): 14294083 Code(s): K64.9 - UNSPECIFIED HEMORRHOIDS Priority: Low Current Visit: No Qualifiers: Hemorrhoid type: unspecified Qualified Code(s): K64.9 - Unspecified hemorrhoids (42) Migraines SNOMED Code(s): 26372125 Code(s): G43.909 - MIGRAINE, UNSP, NOT INTRACTABLE, WITHOUT STATUS MIGRAINOSUS Priority: Low Current Visit: No Qualifiers: Migraine type: unspecified Status migrainosus presence: without status migrainosus Intractability: not intractable Qualified Code(s): G43.909 - Migraine, unspecified, not intractable, without status migrainosus (43) Vitamin D deficiency SNOMED Code(s): 14951109 Code(s): E55.9 - VITAMIN D DEFICIENCY, UNSPECIFIED Priority: Low Current Visit: No (44) Seborrheic keratoses SNOMED Code(s): 526665346 Code(s): L82.1 - OTHER SEBORRHEIC KERATOSIS Priority: Low Current Visit: No (45) Notalgia paresthetica SNOMED Code(s): 041865782 Code(s): R20.2 - PARESTHESIA OF SKIN Priority: Low Current Visit: No Problem List Initiated/Reviewed/Updated: Yes Plan: I/P: Acute: S/P left total hip arthroplasty - post-operative day 0 -DVT prophylaxis and pain management per primary care team -PT/OT -IS/RT -Monitor oxygen saturation -Titrate oxygen as needed -Home medications reviewed -Vital signs stable -Monitor labs -Pre-operative Hgb was 13.3 -Pre-operative GFR was >60 -Pre-operative Cl was 96 -Pre-operative Na was 134 -Pre-operative A1C was 6.90% Osteoarthritis of left hip -Pain management per primary care team Chronic: Paroxysmal A-Fib HTN HLD Pacemaker Chronic anticoagulation GERD Polymyalgia Rheumatica COPD Hx/o subdural hematoma 2/2 a fall Anxiety Arthritis Cardiomegaly Depression CHF with diastolic dysfunction Diverticulosis Dizzy spells Edema Elevated fasting glucose Headache Hiatal hernia Hyponatremia IBS Insomnia Mitral valve prolapse with mitral regurgitation Overactive bladder Osteoporosis Peripheral sensory neuropathy Recurrent UTIs SIADH Small intestine disorder Sick sinus syndrome TMJ Trigeminal neuralgia Umbilical hernia Notalgia paresthetica Cervical stenosis Vitamin D deficiency Anemia Migraines Plan: Telemetry CM for discharge planning GI prophylaxis Home medications as indicated Other orders as listed above Routine AM labs She is a full code. Her PCP is Jennifer Hayes PA-C Thank you for allowing us to participate in the care of this patient!! Requesting Provider: Dr. Corbin Date Consult Requested: 04/06/19 Patient History Reviewed: Yes Admission H&P Reviewed: Yes Notified Requestor: Yes
[2019-04-06] MEDS ORDERED: Lactated Ringers 1,000 ML ONE (12:24)
[2019-04-06] MEDS ORDERED: ePHEDrine Sulfate/0.9% NaCl/Pf 25 MG/5 ML SYRINGE IV ONE (12:28)
[2019-04-06] MEDS ORDERED: Ondansetron 4 MG/2 ML SDV IVPUSH PRN (12:35)
[2019-04-06] MEDS ORDERED: ePHEDrine 50 MG/ML SDV IVPUSH PRN (12:35)
[2019-04-06] MEDS ORDERED: diphenhydrAMINE 50 MG/ML SDV IVPUSH PRN (12:35)
[2019-04-06] MEDS ORDERED: fentaNYL 100 MCG/2 ML SDV IVPUSH PRN (12:35)
[2019-04-06] MEDS ORDERED: HYDROmorphone 0.5 MG/0.5 ML Syringe IVPUSH PRN (12:35)
[2019-04-06] MEDS ORDERED: Phenylephrine 1 MG in Sodium Chloride 0.9% 10 ML IV SCH (12:45)
--- NOTE | 2019-04-06 13:55 | PCM.POSTAN ---
POST ANESTHESIA ASSESSMENT - MENTAL STATUS Mental Status: Alert - VITAL SIGNS Vital Signs: Last Vital Signs Temp 97.3 04/06/19 1346 Pulse 59 04/06/19 1346 Resp 10 04/06/19 1346 BP 124/51 04/06/19 1346 Pulse Ox 99% 04/06/19 1346 - RESPIRATORY Respiratory Status: Respiratory Rate WNL, Airway Patent, O2 Saturation Stable, Supplemental Oxygen - CARDIOVASCULAR CV Status: Pulse Rate WNL, Blood Pressure Stable - GASTROINTESTINAL GI Status: No Symptoms - POST OP HYDRATION Hydration Status: Adequate & Stable
[2019-04-06] MEDS ORDERED: Triamcinolone Acetonide 0.1% Crm 15 GM Tube TOP PRN (14:04)
[2019-04-06] MEDS ORDERED: KETOTIFEN FUMARATE EYEBOTH PRN (14:04)
[2019-04-06] MEDS ORDERED: Fluticasone Propionate Nasal Spray 16 GM Bottle NASBOTH PRN (14:04)
[2019-04-06] MEDS ORDERED: ceFAZolin 2 GM in Premix Bag 1 BAG IV SCH (15:00)
--- NOTE | 2019-04-06 15:19 | CR ---
Pelvis and left hip: AP view of the pelvis was obtained as well as crosstable lateral view of the left hip. Comparison: No prior pelvis or left hip exam. Bilateral hip prosthesis are noted. Components are aligned. Soft tissue air is noted around the left hip compatible with recent hip prosthesis placement. Disc space narrowing is noted within the lower lumbar spine. No acute fracture or other abnormality is appreciated. Impression: 1. Bilateral hip prosthesis. 2. Other findings as noted above. Nothing acute is appreciated. Diagnostic code #2 Study was dictated in [place] Standard Time
[2019-04-06] MEDS: ceFAZolin 2 GM in Premix Bag 1 BAG IV SCH (19:24)
[2019-04-06] MEDS ORDERED: Famotidine 20 MG Tab PO SCH (21:00)
[2019-04-06] MEDS: Metoprolol Tartrate 100 MG Tab PO SCH (21:10)
[2019-04-06] MEDS: Acetaminophen/HYDROcodone 325-5 MG Tab PO PRN (21:11)
[2019-04-06] MEDS: SODIUM CHLORIDE PO SCH (22:31)
[2019-04-07] MEDS: Acetaminophen/HYDROcodone 325-5 MG Tab PO PRN ×4 (03:18→14:40)
[2019-04-07] MEDS: ceFAZolin 2 GM in Premix Bag 1 BAG IV SCH ×2 (03:19→10:13)
--- NOTE | 2019-04-07 07:00 | PCM.CONSN ---
- General Info Date of Service: 04/07/19 Admission Dx/Problem (Free Text): Admission Diagnosis/Problem Admission Diagnosis/Problem Osteoarthritis of hip Functional Status: Reports: Pain Controlled, Tolerating Diet, Ambulating, Urinating, Incentive Spirometry. Denies: New Symptoms - Review of Systems General: Reports: Weakness. Denies: Fever, Chills HEENT: Reports: No Symptoms. Denies: Headaches, Sore Throat Pulmonary: Reports: No Symptoms. Denies: Shortness of Breath, Cough, Sputum, Wheezing Cardiovascular: Reports: Dyspnea on Exertion. Denies: Chest Pain, Palpitations Gastrointestinal: Reports: No Symptoms. Denies: Abdominal Pain, Constipation, Diarrhea, Nausea, Vomiting Genitourinary: Reports: No Symptoms. Denies: Pain Musculoskeletal: Reports: Leg Pain (left) Skin: Reports: No Symptoms. Denies: Cyanosis Neurological: Reports: Difficulty Walking, Weakness, Gait Disturbance. Denies: Confusion Psychiatric: Reports: No Symptoms - Patient Data Vitals - Most Recent: Last Vital Signs Temp 98.1 F 04/07/19 03:13 Pulse 59 L 04/07/19 03:13 Resp 18 04/07/19 03:13 BP 132/57 L 04/07/19 03:13 Pulse Ox 91 L 04/07/19 03:13 Weight - Most Recent: 141 lb I&O - Last 24 Hours: Intake & Output 04/06/19 04/07/19 04/07/19 22:59 06:59 14:59 Intake Total 640 700 Output Total 1750 Balance 640 -1050 Lab Results Last 24 Hours: Laboratory Results - last 24 hr 04/06/19 04/06/19 04/06/19 Range/Units 10:12 10:13 14:41 POC Glucose 108 110 (83-110) mg/dL Blood Type A POSITIVE Gel Antibody Screen Negative Med Orders - Current: Current Medications Hydrocodone Bitart/Acetaminophen (Mongo 325-5 Mg) 1 - 2 tab PO Q4H PRN PRN Reason: Pain Last Admin: 04/07/19 03:18 Dose: 2 tab Amlodipine Besylate (Norvasc) 10 mg PO DAILY [facility] Apixaban (Eliquis) 5 mg PO BID [facility] Bisacodyl (Dulcolax) 5 mg PO DAILY PRN PRN Reason: Constipation Cholecalciferol (Vitamin D3) 5,000 unit PO DAILY [facility] Duloxetine HCl (Cymbalta) 20 mg PO DAILY [facility] Fluticasone Propionate (Flonase) 0 gm NASBOTH BID PRN PRN Reason: as directed Cefazolin Sodium/Dextrose 2 gm (/ Premix) 50 mls @ 100 mls/hr IV Q8H [facility] Stop: 04/07/19 11:29 Last Admin: 04/07/19 03:19 Dose: 100 mls/hr Loratadine (Claritin) 10 mg PO DAILY [facility] Losartan Potassium (Cozaar) 50 mg PO QAM [facility] Magnesium Hydroxide (Milk Of Magnesia) 30 ml PO BID PRN PRN Reason: Constipation Metoprolol Tartrate (Lopressor) 100 mg PO BID [facility] Last Admin: 04/06/19 21:10 Dose: 100 mg Morphine Sulfate (Morphine) 2 mg IVPUSH Q2H PRN PRN Reason: Breakthrough Pain Naloxone HCl (Narcan) 0.1 mg IVPUSH Q5M PRN PRN Reason: Oversedation Ketotifen Fumarate (Drops Ptom) 1 drop EYEBOTH BID PRN PRN Reason: ITCHY EYES Non-Formulary Medication (Linaclotide [Linzess]) 72 mcg PO TIDMEALS [facility] Non-Formulary Medication (Rosuvastatin) 5 mg PO BEDTIME [facility] Sodium Chloride 1, (000 Mg Tab Ptom) 1,000 mg PO BID [facility] Last Admin: 04/06/19 22:31 Dose: Not Given Ondansetron HCl (Zofran) 4 mg IVPUSH Q6H PRN PRN Reason: Nausea/Vomiting Pantoprazole Sodium (Protonix) 40 mg PO DAILY [facility] Senna (Senna) 8.6 mg PO BID PRN PRN Reason: Constipation Senna/Docusate Sodium (Senna Plus) 2 tab PO BEDTIME [facility] Last Admin: 04/06/19 21:11 Dose: 2 tab Discontinued Medications Bupivacaine HCl (Sensorcaine-Mpf 0.25%) Confirm Administered Dose 30 ml .ROUTE .STK-MED ONE Stop: 04/06/19 10:30 Cefazolin Sodium (Ancef) Confirm Administered Dose 2 gm .ROUTE .STK-MED ONE Stop: 04/06/19 06:04 Cefazolin Sodium (Ancef) Confirm Administered Dose 2 gm .ROUTE .STK-MED ONE Stop: 04/06/19 06:30 Cefazolin Sodium (Ancef) Confirm Administered Dose 2 gm .ROUTE .STK-MED ONE Stop: 04/06/19 10:30 Morphine Sulfate 8 mg/Epinephrine HCl 0.3 mg/Cefuroxime Sodium 750 mg/Ketorolac Tromethamine 30 mg/Sodium Chloride 7.9 ml 0 mg .XX ASDIRECTED PRN PRN Reason: Pain Stop: 04/06/19 14:00 Diphenhydramine HCl (Benadryl) 25 mg IVPUSH Q6H PRN PRN Reason: pruritis Stop: 04/06/19 15:00 Duloxetine HCl (Cymbalta) 20 mg PO DAILY [facility] Ephedrine Sulfate (Ephedrine 25 Mg/5 Ml Syringe) Confirm Administered Dose 25 mg IV .STK-MED ONE Stop: 04/06/19 12:29 Ephedrine Sulfate (Ephedrine Sulfate) 5 mg IVPUSH ASDIRECTED PRN PRN Reason: Hypotension Stop: 04/06/19 16:00 Famotidine (Pepcid) 20 mg PO Q12H [facility] Fentanyl (Sublimaze) Confirm Administered Dose 100 mcg .ROUTE .ST-MED ONE Stop: 04/06/19 06:04 Fentanyl (Sublimaze) Confirm Administered Dose 100 mcg .ROUTE .ST-MED ONE Stop: 04/06/19 06:30 Fentanyl (Sublimaze) 50 mcg IVPUSH Q5M PRN PRN Reason: Pain Stop: 04/06/19 15:00 Hydromorphone HCl (Dilaudid) 0.5 mg IVPUSH Q15M PRN PRN Reason: Pain (severe 7-10) Stop: 04/06/19 15:00 Lactated Ringer's (Ringers, Lactated) 1,000 mls @ 125 mls/hr IV ASDIRECTED [facility] Stop: 04/06/19 23:00 Last Admin: 04/06/19 10:13 Dose: 125 mls/hr Lidocaine HCl (Xylocaine-Mpf 1%) Confirm Administered Dose 0 mls @ as directed .ROUTE .STK-MED ONE Stop: 04/06/19 06:04 Lactated Ringer's (Ringers, Lactated) Confirm Administered Dose 0 mls @ as directed .ROUTE .ST-MED ONE Stop: 04/06/19 06:04 Lactated Ringer's (Ringers, Lactated) Confirm Administered Dose 1,000 mls @ as directed .ROUTE .STK-MED ONE Stop: 04/06/19 06:29 Lidocaine HCl (Xylocaine-Mpf 1%) Confirm Administered Dose 6 mls @ as directed .ROUTE .STK-MED ONE Stop: 04/06/19 06:30 Cefazolin Sodium/Dextrose 2 gm (/ Premix) 50 mls @ 100 mls/hr IV Q8H [facility] Stop: 04/07/19 07:29 Last Admin: 04/07/19 03:21 Dose: Not Given Lactated Ringer's (Ringers, Lactated) Confirm Administered Dose 1,000 mls @ as directed .ROUTE .STK-MED ONE Stop: 04/06/19 12:25 Phenylephrine HCl 1 mg/ Sodium (Chloride) 10.1 mls @ 1 mls/sec IV TITRATE [facility]; Protocol Stop: 04/06/19 16:00 Iodine (Iodine 2% Mild Tincture) Confirm Administered Dose 30 ml .ROUTE .STK- MED ONE Stop: 04/06/19 10:30 Ketamine HCl (Ketalar) Confirm Administered Dose 500 mg .ROUTE .STK-MED ONE Stop: 04/06/19 06:05 Ketamine HCl (Ketalar) Confirm Administered Dose 500 mg .ROUTE .STK-MED ONE Stop: 04/06/19 06:31 Ketorolac Tromethamine (Toradol) Confirm Administered Dose 30 mg .ROUTE .STK- MED ONE Stop: 04/06/19 06:04 Lidocaine/Sodium Bicarbonate (Buffered Lidocaine 1% In Ns 8.4%) 0.25 ml IDERM ONETIME PRN PRN Reason: Prior to IV Start Stop: 04/06/19 18:00 Last Admin: 04/06/19 10:13 Dose: 0.25 ml Midazolam HCl (Versed 1 Mg/Ml) Confirm Administered Dose 2 mg .ROUTE .STK-MED ONE Stop: 04/06/19 06:04 Midazolam HCl (Versed 1 Mg/Ml) Confirm Administered Dose 2 mg .ROUTE .STK-MED ONE Stop: 04/06/19 06:31 Miscellaneous Medication (Phenylephrine 1 Mg/10 Ml-Ns) Confirm Administered Dose 1 mg IV .STK-MED ONE Stop: 04/06/19 06:04 Miscellaneous Medication (Phenylephrine 1 Mg/10 Ml-Ns) Confirm Administered Dose 1 mg IV .STK-MED ONE Stop: 04/06/19 06:30 Ondansetron HCl (Zofran) Confirm Administered Dose 4 mg .ROUTE .STK-MED ONE Stop: 04/06/19 06:04 Ondansetron HCl (Zofran) Confirm Administered Dose 4 mg .ROUTE .STK-MED ONE Stop: 04/06/19 06:30 Ondansetron HCl (Zofran) 4 mg IVPUSH ONETIME PRN PRN Reason: Nausea/Vomiting Stop: 04/06/19 16:00 Propofol (Diprivan 20 Ml) Confirm Administered Dose 400 mg .ROUTE .STK-MED ONE Stop: 04/06/19 06:04 Propofol (Diprivan 20 Ml) Confirm Administered Dose 400 mg .ROUTE .STK-MED ONE Stop: 04/06/19 06:30 Sodium Chloride (Saline Flush) 10 ml FLUSH ASDIRECTED PRN PRN Reason: Keep Vein Open Stop: 04/06/19 18:00 Tranexamic Acid (Cyklokapron) Confirm Administered Dose 1,000 mg .ROUTE .STK- MED ONE Stop: 04/06/19 10:29 Triamcinolone Acetonide (Triamcinolone Acetonide 0.1% Crm) gm TOP ASDIRECTED PRN PRN Reason: ASDIRECTED Vancomycin HCl (Vancomycin) Confirm Administered Dose 1 gm .ROUTE .STK-MED ONE Stop: 04/06/19 10:30 - Exam Quality Assessment: Supplemental Oxygen (1L), DVT Prophylaxis. No: Urine Catheter General: Alert, Oriented, Cooperative, No Acute Distress HEENT: Pupils Equal, Pupils Reactive, Mucous Membr. Moist/Wheeler Neck: Supple, Trachea Midline Lungs: Clear to Auscultation, Normal Respiratory Effort Cardiovascular: Regular Rate, Regular Rhythm GI/Abdominal Exam: Normal Bowel Sounds, Soft, Non-Tender, Distended (mild) (Female) Exam: Deferred Back Exam: Normal Inspection, Full Range of Motion Extremities: Normal Capillary Refill, Leg Pain, Limited Range of Motion, Other ( Bandage in place on right leg. Cooling pack in place. ) Peripheral Pulses: 2+: Radial (L), Radial (R), Dorsalis Pedis (L), Dorsalis Pedis (R) Skin: Warm, Dry, Intact Wound/Incisions: Dressing Dry and Intact Neurological: No New Focal Deficit Psy/Mental Status: Alert, Normal Affect, Normal Mood Sepsis Event Note - Evaluation Sepsis Screening Result: No Definite Risk - Focused Exam Vital Signs: Vital Signs Temp Pulse Resp BP Pulse Ox 04/07/19 03:13 98.1 F 59 L 18 132/57 L 91 L 04/07/19 00:12 97.9 F 59 L 18 141/46 H 92 L 04/06/19 21:10 58 L 103/41 L 04/06/19 19:02 58 L 103/41 L 96 Date Exam was Performed: 04/07/19 Time Exam was Performed: 12:00 Consult PN Assessment/Plan POD#: 1 Procedures: Procedures AGENT NOS ASSAY W/OPTIC (08/27/14) ASSAY OF AMYLASE (07/25/13) ASSAY OF BLOOD/URIC ACID (07/10/16) ASSAY OF CK (CPK) (07/31/17) ASSAY OF LIPASE (03/06/17) ASSAY OF MAGNESIUM (12/19/17) ASSAY OF NATRIURETIC PEPTIDE (05/02/18) ASSAY OF PREALBUMIN (03/25/19) ASSAY OF TROPONIN QUANT (05/17/18) ASSAY OF URINE OSMOLALITY (04/21/14) ASSAY OF URINE SODIUM (04/21/14) ASSAY THYROID STIM HORMONE (05/02/18) BL SMEAR W/DIFF WBC COUNT (12/19/17) BLOOD CULTURE FOR BACTERIA (08/27/14) C-REACTIVE PROTEIN (05/17/18) CHEST X-RAY 2VW FRONTAL&LATL (08/31/14) COMPLETE CBC AUTOMATED (11/19/18) COMPLETE CBC W/AUTO DIFF WBC (05/17/18) COMPREHEN METABOLIC PANEL (03/25/19) CONTRST X-RAY UPPR GI TRACT (03/15/17) CREATINE MB FRACTION (08/27/14) CT ABD & PELV 1/> REGNS (04/29/14) CT ABD & PELV W/CONTRAST (01/31/16) CT ABD & PELVIS W/O CONTRAST (07/15/13) CT ANGIOGRAPHY CHEST (08/27/14) CT CHEST SPINE W/O DYE (12/19/17) CT HEAD/BRAIN W/O DYE (08/27/14) CT THORAX W/O DYE (09/29/18) CULTURE OTHR SPECIMN AEROBIC (05/07/18) DRAIN/INJ JOINT/BURSA W/O US (01/13/19) DXA BONE DENSITY AXIAL (03/27/19) ELECTROCARDIOGRAM TRACING (05/17/18) EMERGENCY DEPT VISIT (05/17/18) EMERGENCY DEPT VISIT (08/27/14) EMERGENCY DEPT VISIT (09/26/13) EVALUATE PT USE OF INHALER (08/31/14) FIBRIN DEGRADATION QUANT (08/27/14) GLYCOSYLATED HEMOGLOBIN TEST (03/25/19) HPYLORI STOOL IA (02/01/16) HYDRATE IV INFUSION ADD-ON (05/17/18) LIPID PANEL (09/12/18) MEASURE BLOOD OXYGEN LEVEL (08/27/14) METABOLIC PANEL TOTAL CA (07/12/16) MICROBE SUSCEPTIBLE HAYLEE (05/27/17) MR-STAPH DNA AMP PROBE (01/06/18) PERQ VERTEBRAL AUGMENTATION (01/14/18) POLYSOM 6/> YRS 4/> YAN (09/04/16) PROTHROMBIN TIME (03/25/19) RBC SED RATE AUTOMATED (04/13/16) RENAL FUNCTION PANEL (11/03/14) ROUTINE VENIPUNCTURE (05/17/18) SMEAR GRAM STAIN (05/07/18) THER/PROPH/DIAG INJ IV PUSH (05/17/18) THER/PROPH/DIAG IV INF ADDON (08/27/14) THER/PROPH/DIAG IV INF INIT (08/27/14) THROMBOPLASTIN TIME PARTIAL (03/25/19) TRANSVAGINAL US NON-OB (04/19/16) TX/PRO/DX INJ NEW DRUG ADDON (08/27/14) UR ALBUMIN SEMIQUANTITATIVE (07/01/15) URINALYSIS AUTO W/SCOPE (05/17/18) URINE BACTERIA CULTURE (05/27/17) URINE CULTURE/COLONY COUNT (02/02/19) US EXAM ABDO BACK WALL COMP (11/04/17) US EXAM ABDOM COMPLETE (12/17/13) US EXAM PELVIC COMPLETE (12/17/13) VITAMIN B-12 (06/25/18) VITAMIN D 25 HYDROXY (06/25/18) X-RAY EXAM ABDOMEN 2 VIEWS (05/14/18) X-RAY EXAM CHEST 1 VIEW (12/18/17) X-RAY EXAM CHEST 2 VIEWS (03/25/19) X-RAY EXAM KNEE 4 OR MORE (12/16/15) X-RAY EXAM L-S SPINE 2/3 VWS (11/01/16) X-RAY EXAM OF ABDOMEN (07/25/13) X-RAY EXAM OF ABDOMEN (07/10/13) X-RAY EXAM OF TOE(S) (07/12/16) X-RAY EXAM THORAC SPINE 2VWS (03/26/18) (1) Paroxysmal A-fib SNOMED Code(s): 155811019 Code(s): I48.0 - PAROXYSMAL ATRIAL FIBRILLATION Priority: Medium Current Visit: Yes (2) HTN (hypertension) SNOMED Code(s): 17546642 Code(s): I10 - ESSENTIAL (PRIMARY) HYPERTENSION Priority: Medium Current Visit: No Qualifiers: Hypertension type: unspecified Qualified Code(s): I10 - Essential (primary ) hypertension (3) HLD (hyperlipidemia) SNOMED Code(s): 90463694 Code(s): E78.5 - HYPERLIPIDEMIA, UNSPECIFIED Priority: Low Current Visit : No Qualifiers: Hyperlipidemia type: unspecified Qualified Code(s): E78.5 - Hyperlipidemia , unspecified (4) Pacemaker SNOMED Code(s): 199806931 Code(s): Z95.0 - PRESENCE OF CARDIAC PACEMAKER Priority: Medium Current Visit: No (5) Chronic anticoagulation SNOMED Code(s): 445286520 Code(s): Z79.01 - COMPUTER AIDED DESIGN OPERATOR (CURRENT) USE OF ANTICOAGULANTS Priority: Medium Current Visit: No (6) GERD (gastroesophageal reflux disease) SNOMED Code(s): 791260194 Code(s): K21.9 - GASTRO-ESOPHAGEAL REFLUX DISEASE WITHOUT ESOPHAGITIS Priority: Low Current Visit: No Qualifiers: Esophagitis presence: esophagitis presence not specified Qualified Code(s) : K21.9 - Gastro-esophageal reflux disease without esophagitis (7) Polymyalgia rheumatica SNOMED Code(s): 96631083 Code(s): M35.3 - POLYMYALGIA RHEUMATICA Priority: Low Current Visit: No (8) COPD (chronic obstructive pulmonary disease) SNOMED Code(s): 81450531 Code(s): J44.9 - CHRONIC OBSTRUCTIVE PULMONARY DISEASE, UNSPECIFIED Priority: Medium Current Visit: No Qualifiers: COPD type: unspecified COPD Qualified Code(s): J44.9 - Chronic obstructive pulmonary disease, unspecified (9) History of subdural hematoma (post traumatic) SNOMED Code(s): 434017902, 562401220 Code(s): Z87.828 - PERSONAL HISTORY OF OTH (HEALED) PHYSICAL INJURY AND TRAUMA Priority: Low Current Visit: No (10) Anxiety SNOMED Code(s): 48593254 Code(s): F41.9 - ANXIETY DISORDER, UNSPECIFIED Priority: Low Current Visit: No (11) Arthritis SNOMED Code(s): 8915824 Code(s): M19.90 - UNSPECIFIED OSTEOARTHRITIS, UNSPECIFIED SITE Priority: Medium Current Visit: Yes (12) Cardiomegaly SNOMED Code(s): 4044120 Code(s): I51.7 - CARDIOMEGALY Priority: Medium Current Visit: No (13) Chronic cough SNOMED Code(s): 74371225 Code(s): R05 - COUGH Priority: Low Current Visit: No (14) Depression SNOMED Code(s): 27832498 Code(s): F32.9 - MAJOR DEPRESSIVE DISORDER, SINGLE EPISODE, UNSPECIFIED Priority: Low Current Visit: No Qualifiers: Depression Type: unspecified Qualified Code(s): F32.9 - Major depressive disorder, single episode, unspecified (15) Diastolic dysfunction SNOMED Code(s): 0970540 Code(s): I51.89 - OTHER ILL-DEFINED HEART DISEASES Current Visit: Yes (16) Diverticulosis SNOMED Code(s): 211868318 Code(s): K57.90 - DVRTCLOS OF INTEST, PART UNSP, W/O PERF OR ABSCESS W/O BLEED Priority: Low Current Visit: No (17) Dizzy spells SNOMED Code(s): 525331074 Code(s): R42 - DIZZINESS AND GIDDINESS Priority: Low Current Visit: No (18) Edema SNOMED Code(s): 246901676, 851641185 Code(s): R60.9 - EDEMA, UNSPECIFIED Priority: Low Current Visit: No Qualifiers: Edema type: unspecified Qualified Code(s): R60.9 - Edema, unspecified (19) Elevated fasting glucose SNOMED Code(s): 30954866 Code(s): R73.01 - IMPAIRED FASTING GLUCOSE Priority: Low Current Visit: No (20) Hiatal hernia SNOMED Code(s): 85109862 Code(s): K44.9 - DIAPHRAGMATIC HERNIA WITHOUT OBSTRUCTION OR GANGRENE Priority: Low Current Visit: No (21) IBS (irritable bowel syndrome) SNOMED Code(s): 52289626 Code(s): K58.9 - IRRITABLE BOWEL SYNDROME WITHOUT DIARRHEA Priority: Low Current Visit: No Qualifiers: Irritable bowel syndrome type: unspecified Qualified Code(s): K58.9 - Irritable bowel syndrome without diarrhea (22) Insomnia SNOMED Code(s): 015815315 Code(s): G47.00 - INSOMNIA, UNSPECIFIED Priority: Low Current Visit: No Qualifiers: Insomnia type: unspecified Qualified Code(s): G47.00 - Insomnia, unspecified (23) Mitral valve prolapse SNOMED Code(s): 834112126 Code(s): I34.1 - NONRHEUMATIC MITRAL (VALVE) PROLAPSE Priority: Medium Current Visit: Yes (24) Mitral regurgitation SNOMED Code(s): 14502749 Code(s): I34.0 - NONRHEUMATIC MITRAL (VALVE) INSUFFICIENCY Priority: Medium Current Visit: Yes Qualifiers: Cardiac valve disease etiology: etiology unspecified Qualified Code(s): I34.0 - Nonrheumatic mitral (valve) insufficiency (25) Overactive bladder SNOMED Code(s): 884549223 Code(s): N32.81 - OVERACTIVE BLADDER Priority: Low Current Visit: No (26) Osteoporosis SNOMED Code(s): 68510142 Code(s): M81.0 - AGE-RELATED OSTEOPOROSIS W/O CURRENT PATHOLOGICAL FRACTURE Priority: High Current Visit: Yes Qualifiers: Osteoporosis type: unspecified Presence of current pathological fracture: unspecified Qualified Code(s): M81.0 - Age-related osteoporosis without current pathological fracture (27) Peripheral sensory neuropathy SNOMED Code(s): 85378434 Code(s): G62.9 - POLYNEUROPATHY, UNSPECIFIED Priority: Medium Current Visit: No (28) Recurrent UTI SNOMED Code(s): 415356289 Code(s): N39.0 - URINARY TRACT INFECTION, SITE NOT SPECIFIED Priority: Low Current Visit: No (29) SIADH (syndrome of inappropriate ADH production) SNOMED Code(s): 15767986 Code(s): E22.2 - SYNDROME OF INAPPROPRIATE SECRETION OF ANTIDIURETIC HORMONE Priority: Medium Current Visit: No (30) Small intestine disorder SNOMED Code(s): 623068277 Code(s): K63.9 - DISEASE OF INTESTINE, UNSPECIFIED Priority: Medium Current Visit: No (31) Sick sinus syndrome SNOMED Code(s): 23150775 Code(s): I49.5 - SICK SINUS SYNDROME Priority: Medium Current Visit: No (32) Trigeminal neuralgia SNOMED Code(s): 41594892 Code(s): G50.0 - TRIGEMINAL NEURALGIA Priority: Medium Current Visit: No (33) Umbilical hernia SNOMED Code(s): 809186184 Code(s): K42.9 - UMBILICAL HERNIA WITHOUT OBSTRUCTION OR GANGRENE Priority : Low Current Visit: No Qualifiers: Obstruction and gangrene presence: without obstruction or gangrene Qualified Code(s): K42.9 - Umbilical hernia without obstruction or gangrene (34) Headache SNOMED Code(s): 97585517 Code(s): R51 - HEADACHE Priority: Low Current Visit: No Qualifiers: Headache type: unspecified Headache chronicity pattern: unspecified pattern Intractability: not intractable Qualified Code(s): R51 - Headache (35) Hyponatremia SNOMED Code(s): 60418911 Code(s): E87.1 - HYPO-OSMOLALITY AND HYPONATREMIA Priority: Low Current Visit: No (36) TMJ, Temporomandibular ezwxb-zscf-bzrnzzznzao syndrome, Myofascial Pain SNOMED Code(s): 082887456 Code(s): M26.62 - ARTHRALGIA OF TEMPOROMANDIBULAR JOINT * DO NOT USE * Priority: Low Current Visit: No (37) S/P total hip arthroplasty SNOMED Code(s): 625113171847, 550070742111 Code(s): Z96.649 - PRESENCE OF UNSPECIFIED ARTIFICIAL HIP JOINT Priority: High Current Visit: Yes Qualifiers: Laterality: left Qualified Code(s): Z96.642 - Presence of left artificial hip joint (38) Osteoarthritis SNOMED Code(s): 179455892 Code(s): M19.90 - UNSPECIFIED OSTEOARTHRITIS, UNSPECIFIED SITE Priority: High Current Visit: Yes Qualifiers: Osteoarthritis location: hip Osteoarthritis type: primary Laterality: left Qualified Code(s): M16.12 - Unilateral primary osteoarthritis, left hip (39) Anemia SNOMED Code(s): 907531390 Code(s): D64.9 - ANEMIA, UNSPECIFIED Priority: Medium Current Visit: No Qualifiers: Anemia type: unspecified type Qualified Code(s): D64.9 - Anemia, unspecified (40) Cervical stenosis of spine Priority: Low Current Visit: No (41) Hemorrhoids SNOMED Code(s): 06766495 Code(s): K64.9 - UNSPECIFIED HEMORRHOIDS Priority: Low Current Visit: No Qualifiers: Hemorrhoid type: unspecified Qualified Code(s): K64.9 - Unspecified hemorrhoids (42) Migraines SNOMED Code(s): 32914467 Code(s): G43.909 - MIGRAINE, UNSP, NOT INTRACTABLE, WITHOUT STATUS MIGRAINOSUS Priority: Low Current Visit: No Qualifiers: Migraine type: unspecified Status migrainosus presence: without status migrainosus Intractability: not intractable Qualified Code(s): G43.909 - Migraine, unspecified, not intractable, without status migrainosus (43) Vitamin D deficiency SNOMED Code(s): 98205025 Code(s): E55.9 - VITAMIN D DEFICIENCY, UNSPECIFIED Priority: Low Current Visit: No (44) Seborrheic keratoses SNOMED Code(s): 454456467 Code(s): L82.1 - OTHER SEBORRHEIC KERATOSIS Priority: Low Current Visit: No (45) Notalgia paresthetica SNOMED Code(s): 999843759 Code(s): R20.2 - PARESTHESIA OF SKIN Priority: Low Current Visit: No Problem List Initiated/Reviewed/Updated: Yes My Orders Last 24 Hours: My Active Orders 04/06/19 17:21 Consult to Case Management/Grinding Wheel Inspector [CONS] Routine Plan: I/P: Acute: S/P left total hip arthroplasty - post-operative day 1 -DVT prophylaxis and pain management per primary care team -PT/OT -IS/RT -Monitor oxygen saturation -Titrate oxygen as needed -Home medications reviewed -Vital signs stable -Monitor labs -Pre-operative Hgb was 13.3; Now 12.3 -Pre-operative GFR was >60; Now greater than 60 -Pre-operative Cl was 96; Now 97 -Pre-operative Na was 134; Now 133 -Pre-operative A1C was 6.90% Osteoarthritis of left hip -Pain management per primary care team Chronic: Paroxysmal A-Fib HTN HLD Pacemaker Chronic anticoagulation GERD Polymyalgia Rheumatica COPD Hx/o subdural hematoma 2/2 a fall Anxiety Arthritis Cardiomegaly Depression CHF with diastolic dysfunction Diverticulosis Dizzy spells Edema Elevated fasting glucose Headache Hiatal hernia Hyponatremia IBS Insomnia Mitral valve prolapse with mitral regurgitation Overactive bladder Osteoporosis Peripheral sensory neuropathy Recurrent UTIs SIADH Small intestine disorder Sick sinus syndrome TMJ Trigeminal neuralgia Umbilical hernia Notalgia paresthetica Cervical stenosis Vitamin D deficiency Anemia Migraines Plan: Telemetry CM/SW for discharge planning GI prophylaxis Home medications as indicated Other orders as listed above Routine AM labs Will require SNF placement at discharge. She is a full code. Her PCP is Jennifer Hayes PA-C Family and social work attempting to obtain placement. SNF recommending placement. Likely discharge 04/09/19 Thank you for allowing us to participate in the care of this patient!!
--- NOTE | 2019-04-07 07:54 | PCM.SURGPN ---
- General Info Date of Service: 04/07/19 POD#: 1 Functional Status: Reports: Pain Controlled, Tolerating Diet, Ambulating, Urinating, Incentive Spirometry - Patient Data Vitals - Most Recent: Last Vital Signs Temp 98.1 F 04/07/19 03:13 Pulse 59 L 04/07/19 03:13 Resp 18 04/07/19 03:13 BP 132/57 L 04/07/19 03:13 Pulse Ox 93 L 04/07/19 07:23 Weight - Most Recent: 141 lb I&O - Last 24 Hours: Intake & Output 04/06/19 04/07/19 04/07/19 22:59 06:59 14:59 Intake Total 640 700 Output Total 1750 Balance 640 -1050 Lab Results Last 24 Hrs: Laboratory Results - last 24 hr 04/06/19 04/06/19 04/06/19 Range/Units 10:12 10:13 14:41 WBC (3.98-10.04) K/mm3 RBC (3.98-5.22) M/mm3 Hgb (11.2-15.7) gm/dl Hct (34.1-44.9) % MCV (79.4-94.8) fl MCH (25.6-32.2) pg MCHC (32.2-35.5) g/dl RDW Std Deviation (36.4-46.3) fL Plt Count (182-369) K/mm3 MPV (9.4-12.3) fl Sodium (136-145) mEq/L Potassium (3.5-5.1) mEq/L Chloride (98-107) mEq/L Carbon Dioxide (21-32) mEq/L Anion Gap (5-15) BUN (7-18) mg/dL Creatinine (0.55-1.02) mg/dL Est Cr Clr Drug Dosing mL/min Estimated GFR (MDRD) (>60) mL/min BUN/Creatinine Ratio (14-18) Glucose (83-115) mg/dL POC Glucose 108 110 (83-110) mg/dL Calcium (8.5-10.1) mg/dL Total Bilirubin (0.2-1.0) mg/dL AST (15-37) U/L ALT (14-59) U/L Alkaline Phosphatase (46-116) U/L Total Protein (6.4-8.2) g/dl Albumin (3.4-5.0) g/dl Globulin gm/dL Albumin/Globulin Ratio (1-2) Blood Type A POSITIVE Gel Antibody Screen Negative 04/07/19 04/07/19 Range/Units 05:50 05:50 WBC 12.31 H (3.98-10.04) K/mm3 RBC 3.65 L (3.98-5.22) M/mm3 Hgb 12.3 (11.2-15.7) gm/dl Hct 37.9 (34.1-44.9) % MCV 103.8 H D (79.4-94.8) fl MCH 33.7 H (25.6-32.2) pg MCHC 32.5 (32.2-35.5) g/dl RDW Std Deviation 48.1 H (36.4-46.3) fL Plt Count 227 (182-369) K/mm3 MPV 10.3 (9.4-12.3) fl Sodium 133 L (136-145) mEq/L Potassium 3.6 (3.5-5.1) mEq/L Chloride 97 L (98-107) mEq/L Carbon Dioxide 27 (21-32) mEq/L Anion Gap 12.6 (5-15) BUN 9 (7-18) mg/dL Creatinine 0.5 L (0.55-1.02) mg/dL Est Cr Clr Drug Dosing 67.16 mL/min Estimated GFR (MDRD) > 60 (>60) mL/min BUN/Creatinine Ratio 18.0 (14-18) Glucose 117 H (83-115) mg/dL POC Glucose (83-110) mg/dL Calcium 8.6 (8.5-10.1) mg/dL Total Bilirubin 0.8 (0.2-1.0) mg/dL AST 34 (15-37) U/L ALT 22 (14-59) U/L Alkaline Phosphatase 59 (46-116) U/L Total Protein 6.2 L (6.4-8.2) g/dl Albumin 3.0 L (3.4-5.0) g/dl Globulin 3.2 gm/dL Albumin/Globulin Ratio 0.9 L (1-2) Blood Type Gel Antibody Screen Med Orders - Current: Current Medications Hydrocodone Bitart/Acetaminophen (Vance 325-5 Mg) 1 - 2 tab PO Q4H PRN PRN Reason: Pain Last Admin: 04/07/19 03:18 Dose: 2 tab Amlodipine Besylate (Norvasc) 10 mg PO DAILY [facility] Apixaban (Eliquis) 5 mg PO BID [facility] Bisacodyl (Dulcolax) 5 mg PO DAILY PRN PRN Reason: Constipation Cholecalciferol (Vitamin D3) 5,000 unit PO DAILY [facility] Duloxetine HCl (Cymbalta) 20 mg PO DAILY [facility] Cefazolin Sodium/Dextrose 2 gm (/ Premix) 50 mls @ 100 mls/hr IV Q8H [facility] Stop: 04/07/19 11:29 Last Admin: 04/07/19 03:19 Dose: 100 mls/hr Loratadine (Claritin) 10 mg PO DAILY [facility] Losartan Potassium (Cozaar) 50 mg PO QAM [facility] Magnesium Hydroxide (Milk Of Magnesia) 30 ml PO BID PRN PRN Reason: Constipation Metoprolol Tartrate (Lopressor) 100 mg PO BID [facility] Last Admin: 04/06/19 21:10 Dose: 100 mg Morphine Sulfate (Morphine) 2 mg IVPUSH Q2H PRN PRN Reason: Breakthrough Pain Naloxone HCl (Narcan) 0.1 mg IVPUSH Q5M PRN PRN Reason: Oversedation Ketotifen Fumarate (Drops Ptom) 1 drop EYEBOTH BID PRN PRN Reason: ITCHY EYES Non-Formulary Medication (Linaclotide [Linzess]) 72 mcg PO TIDMEALS [facility] Sodium Chloride 1, (000 Mg Tab Ptom) 1,000 mg PO BID [facility] Last Admin: 04/06/19 22:31 Dose: Not Given Ondansetron HCl (Zofran) 4 mg IVPUSH Q6H PRN PRN Reason: Nausea/Vomiting Pantoprazole Sodium (Protonix) 40 mg PO DAILY [facility] Rosuvastatin Calcium (Crestor) 5 mg PO BEDTIME [facility] Senna (Senna) 8.6 mg PO BID PRN PRN Reason: Constipation Senna/Docusate Sodium (Senna Plus) 2 tab PO BEDTIME [facility] Last Admin: 04/06/19 21:11 Dose: 2 tab Discontinued Medications Bupivacaine HCl (Sensorcaine-Mpf 0.25%) Confirm Administered Dose 30 ml .ROUTE .STK-MED ONE Stop: 04/06/19 10:30 Cefazolin Sodium (Ancef) Confirm Administered Dose 2 gm .ROUTE .K-MED ONE Stop: 04/06/19 06:04 Cefazolin Sodium (Ancef) Confirm Administered Dose 2 gm .ROUTE .STK-MED ONE Stop: 04/06/19 06:30 Cefazolin Sodium (Ancef) Confirm Administered Dose 2 gm .ROUTE .K-MED ONE Stop: 04/06/19 10:30 Morphine Sulfate 8 mg/Epinephrine HCl 0.3 mg/Cefuroxime Sodium 750 mg/Ketorolac Tromethamine 30 mg/Sodium Chloride 7.9 ml 0 mg .XX ASDIRECTED PRN PRN Reason: Pain Stop: 04/06/19 14:00 Diphenhydramine HCl (Benadryl) 25 mg IVPUSH Q6H PRN PRN Reason: pruritis Stop: 04/06/19 15:00 Duloxetine HCl (Cymbalta) 20 mg PO DAILY [facility] Ephedrine Sulfate (Ephedrine 25 Mg/5 Ml Syringe) Confirm Administered Dose 25 mg IV .K-MED ONE Stop: 04/06/19 12:29 Ephedrine Sulfate (Ephedrine Sulfate) 5 mg IVPUSH ASDIRECTED PRN PRN Reason: Hypotension Stop: 04/06/19 16:00 Famotidine (Pepcid) 20 mg PO Q12H [facility] Fentanyl (Sublimaze) Confirm Administered Dose 100 mcg .ROUTE .K-MED ONE Stop: 04/06/19 06:04 Fentanyl (Sublimaze) Confirm Administered Dose 100 mcg .ROUTE .STK-MED ONE Stop: 04/06/19 06:30 Fentanyl (Sublimaze) 50 mcg IVPUSH Q5M PRN PRN Reason: Pain Stop: 04/06/19 15:00 Fluticasone Propionate (Flonase) 0 gm NASBOTH BID PRN PRN Reason: as directed Hydromorphone HCl (Dilaudid) 0.5 mg IVPUSH Q15M PRN PRN Reason: Pain (severe 7-10) Stop: 04/06/19 15:00 Lactated Ringer's (Ringers, Lactated) 1,000 mls @ 125 mls/hr IV ASDIRECTED [facility] Stop: 04/06/19 23:00 Last Admin: 04/06/19 10:13 Dose: 125 mls/hr Lidocaine HCl (Xylocaine-Mpf 1%) Confirm Administered Dose 0 mls @ as directed .ROUTE .STK-MED ONE Stop: 04/06/19 06:04 Lactated Ringer's (Ringers, Lactated) Confirm Administered Dose 0 mls @ as directed .ROUTE .STK-MED ONE Stop: 04/06/19 06:04 Lactated Ringer's (Ringers, Lactated) Confirm Administered Dose 1,000 mls @ as directed .ROUTE .STK-MED ONE Stop: 04/06/19 06:29 Lidocaine HCl (Xylocaine-Mpf 1%) Confirm Administered Dose 6 mls @ as directed .ROUTE .STK-MED ONE Stop: 04/06/19 06:30 Cefazolin Sodium/Dextrose 2 gm (/ Premix) 50 mls @ 100 mls/hr IV Q8H [facility] Stop: 04/07/19 07:29 Last Admin: 04/07/19 03:21 Dose: Not Given Lactated Ringer's (Ringers, Lactated) Confirm Administered Dose 1,000 mls @ as directed .ROUTE .STK-MED ONE Stop: 04/06/19 12:25 Phenylephrine HCl 1 mg/ Sodium (Chloride) 10.1 mls @ 1 mls/sec IV TITRATE [facility]YLE; Protocol Stop: 04/06/19 16:00 Iodine (Iodine 2% Mild Tincture) Confirm Administered Dose 30 ml .ROUTE .STK- MED ONE Stop: 04/06/19 10:30 Ketamine HCl (Ketalar) Confirm Administered Dose 500 mg .ROUTE .STK-MED ONE Stop: 04/06/19 06:05 Ketamine HCl (Ketalar) Confirm Administered Dose 500 mg .ROUTE .STK-MED ONE Stop: 04/06/19 06:31 Ketorolac Tromethamine (Toradol) Confirm Administered Dose 30 mg .ROUTE .STK- MED ONE Stop: 04/06/19 06:04 Lidocaine/Sodium Bicarbonate (Buffered Lidocaine 1% In Ns 8.4%) 0.25 ml IDERM ONETIME PRN PRN Reason: Prior to IV Start Stop: 04/06/19 18:00 Last Admin: 04/06/19 10:13 Dose: 0.25 ml Midazolam HCl (Versed 1 Mg/Ml) Confirm Administered Dose 2 mg .ROUTE .STK-MED ONE Stop: 04/06/19 06:04 Midazolam HCl (Versed 1 Mg/Ml) Confirm Administered Dose 2 mg .ROUTE .STK-MED ONE Stop: 04/06/19 06:31 Miscellaneous Medication (Phenylephrine 1 Mg/10 Ml-Ns) Confirm Administered Dose 1 mg IV .STK-MED ONE Stop: 04/06/19 06:04 Miscellaneous Medication (Phenylephrine 1 Mg/10 Ml-Ns) Confirm Administered Dose 1 mg IV .STK-MED ONE Stop: 04/06/19 06:30 Ondansetron HCl (Zofran) Confirm Administered Dose 4 mg .ROUTE .STK-MED ONE Stop: 04/06/19 06:04 Ondansetron HCl (Zofran) Confirm Administered Dose 4 mg .ROUTE .STK-MED ONE Stop: 04/06/19 06:30 Ondansetron HCl (Zofran) 4 mg IVPUSH ONETIME PRN PRN Reason: Nausea/Vomiting Stop: 04/06/19 16:00 Propofol (Diprivan 20 Ml) Confirm Administered Dose 400 mg .ROUTE .STK-MED ONE Stop: 04/06/19 06:04 Propofol (Diprivan 20 Ml) Confirm Administered Dose 400 mg .ROUTE .STK-MED ONE Stop: 04/06/19 06:30 Sodium Chloride (Saline Flush) 10 ml FLUSH ASDIRECTED PRN PRN Reason: Keep Vein Open Stop: 04/06/19 18:00 Tranexamic Acid (Cyklokapron) Confirm Administered Dose 1,000 mg .ROUTE .STK- MED ONE Stop: 04/06/19 10:29 Triamcinolone Acetonide (Triamcinolone Acetonide 0.1% Crm) gm TOP ASDIRECTED PRN PRN Reason: ASDIRECTED Vancomycin HCl (Vancomycin) Confirm Administered Dose 1 gm .ROUTE .STK-MED ONE Stop: 04/06/19 10:30 - Exam Wound/Incisions: Dressing Dry and Intact General: Alert, Cooperative, No Acute Distress Lungs: Normal Respiratory Effort Extremities: Other (Left thigh soft. NVS intact for LLE. Mat's negative.) Sepsis Event Note - Evaluation Sepsis Screening Result: No Definite Risk - Focused Exam Vital Signs: Vital Signs Temp Pulse Resp BP Pulse Ox Pulse Ox 02/18/20 07:23 93 L 04/07/19 03:13 98.1 F 59 L 18 132/57 L 91 L 04/07/19 00:12 97.9 F 59 L 18 141/46 H 92 L 04/06/19 21:10 58 L 103/41 L Date Exam was Performed: 04/07/19 Time Exam was Performed: 07:52 - Problem List Review Problem List Initiated/Reviewed/Updated: Yes - My Orders Last 24 Hours: Active Orders 24 hr Category Date Time Status Patient Status [ADT] Routine ADT 04/06/19 07:25 Active Ambulate [RC] ,, Care 04/06/19 07:25 Active Antiembolic Devices [RC] BID Care 04/06/19 07:25 Active May Shower [RC] ASDIRECTED Care 04/06/19 07:25 Active Notify Provider Consults [RC] ASDIRECTED Care 04/06/19 07:27 Active Notify Provider [RC] ASDIRECTED Care 04/06/19 12:35 Active Oxygen Therapy [RC] PRN Care 04/06/19 07:25 Active Pulse Oximetry [RC] ASDIRECTED Care 04/06/19 12:34 Active RT Incentive Spirometry [RC] Q1HWA Care 04/06/19 07:23 Active Up to Chair [RC] ASDIRECTED Care 04/06/19 07:25 Active Vital Signs [RC] Q15M Care 04/06/19 12:34 Inactive Vital Signs [RC] Q4HR Care 04/06/19 07:25 Active Consult to Case Management/Chip Drier [CONS] Cons 04/06/19 17:21 Active Routine Consult to Physician [CONS] Routine Cons 04/06/19 07:25 Active OT Evaluation and Treatment [CONS] Routine Cons 04/06/19 07:23 Active PT Evaluation and Treatment [CONS] Routine Cons 04/06/19 07:23 Active Regular Diet [DIET] Diet 04/06/19 Lunch Active Acetaminophen/HYDROcodone [Vance 325-5 MG] Med 04/06/19 12:00 Active 1 - 2 tab PO Q4H PRN Apixaban [Eliquis] Med 04/07/19 09:00 Active 5 mg PO BID Cholecalciferol (Vitamin D3) [Vitamin D3] Med 04/07/19 09:00 Active 5,000 unit PO DAILY DULoxetine [Cymbalta] Med 04/07/19 09:00 Active 20 mg PO DAILY Docusate Sodium/Sennosides [Senna Plus] Med 04/06/19 21:00 Active 2 tab PO BEDTIME Ketotifen Fumarate Med 04/06/19 14:04 Active 1 drop EYEBOTH BID PRN Linaclotide [Linzess] Med 04/06/19 17:00 Pending 72 mcg PO TIDMEALS Loratadine [Claritin] Med 04/07/19 09:00 Active 10 mg PO DAILY Losartan [Cozaar] Med 04/07/19 08:00 Active 50 mg PO QAM Magnesium Hydroxide [Milk of Magnesia] Med 04/06/19 07:25 Active 30 ml PO BID PRN Metoprolol Tartrate [Lopressor] Med 04/06/19 21:00 Active 100 mg PO BID Morphine Med 04/06/19 07:25 Active 2 mg IVPUSH Q2H PRN Naloxone [Narcan] Med 04/06/19 07:25 Active 0.1 mg IVPUSH Q5M PRN Ondansetron [Zofran] Med 04/06/19 07:25 Active 4 mg IVPUSH Q6H PRN Pantoprazole [ProTONIX] Med 04/07/19 09:00 Active 40 mg PO DAILY Rosuvastatin [Crestor] Med 04/07/19 21:00 Active 5 mg PO BEDTIME Sennosides [Senna] Med 04/06/19 07:25 Active 8.6 mg PO BID PRN Sodium Chloride [Sodium Chloride] Med 04/06/19 21:00 Active 1,000 mg PO BID amLODIPine [Norvasc] Med 04/07/19 09:00 Active 10 mg PO DAILY bisacodyL [Dulcolax] Med 04/06/19 07:25 Active 5 mg PO DAILY PRN ceFAZolin [Ancef] 2 gm Med 04/06/19 19:00 Active Premix Bag 1 bag IV Q8H Antiembolic Hose [OM.PC] Per Unit Routine Oth 04/06/19 07:26 Ordered Hip Precautions Posterior [OM.PC] Routine Oth 04/06/19 07:28 Ordered Ice Therapy [OM.PC] Per Unit Routine Oth 04/06/19 07:26 Ordered Sequential Compression Device [OM.PC] Per Unit Routine Oth 04/06/19 07:24 Ordered Resuscitation Status Routine Resus Stat 04/06/19 07:25 Ordered Medication Orders Hydrocodone Bitart/Acetaminophen (Vance 325-5 Mg) 1 - 2 tab PO Q4H PRN PRN Reason: Pain Last Admin: 04/07/19 03:18 Dose: 2 tab Admin: 04/06/19 21:11 Dose: 1 tab Amlodipine Besylate (Norvasc) 10 mg PO DAILY [facility] Apixaban (Eliquis) 5 mg PO BID [facility] Bisacodyl (Dulcolax) 5 mg PO DAILY PRN PRN Reason: Constipation Cholecalciferol (Vitamin D3) 5,000 unit PO DAILY [facility] Duloxetine HCl (Cymbalta) 20 mg PO DAILY [facility] Cefazolin Sodium/Dextrose 2 gm (/ Premix) 50 mls @ 100 mls/hr IV Q8H [facility] Stop: 04/07/19 11:29 Last Admin: 04/07/19 03:19 Dose: 100 mls/hr Infusion: 04/06/19 19:54 Dose: 100 mls/hr Admin: 04/06/19 19:24 Dose: 100 mls/hr Loratadine (Claritin) 10 mg PO DAILY [facility] Losartan Potassium (Cozaar) 50 mg PO QAM [facility] Magnesium Hydroxide (Milk Of Magnesia) 30 ml PO BID PRN PRN Reason: Constipation Metoprolol Tartrate (Lopressor) 100 mg PO BID [facility] Last Admin: 04/06/19 21:10 Dose: 100 mg Morphine Sulfate (Morphine) 2 mg IVPUSH Q2H PRN PRN Reason: Breakthrough Pain Naloxone HCl (Narcan) 0.1 mg IVPUSH Q5M PRN PRN Reason: Oversedation Ketotifen Fumarate (Drops Ptom) 1 drop EYEBOTH BID PRN PRN Reason: ITCHY EYES Non-Formulary Medication (Linaclotide [Linzess]) 72 mcg PO TIDMEALS [facility] Sodium Chloride 1, (000 Mg Tab Ptom) 1,000 mg PO BID [facility] Last Admin: 04/06/19 22:31 Dose: Ondansetron HCl (Zofran) 4 mg IVPUSH Q6H PRN PRN Reason: Nausea/Vomiting Pantoprazole Sodium (Protonix) 40 mg PO DAILY [facility] Rosuvastatin Calcium (Crestor) 5 mg PO BEDTIME [facility] Senna (Senna) 8.6 mg PO BID PRN PRN Reason: Constipation Senna/Docusate Sodium (Senna Plus) 2 tab PO BEDTIME [facility] Last Admin: 04/06/19 21:11 Dose: 2 tab - Assessment Assessment (Free Text/Narrative):: POD#1 - left FABI - Plan Plan (Free Text/Narrative):: 1. Hgb 12.3. 2. Resume use of Eliquis BID. 3. WBAT, FABI precautions. 4. Medical management per Hospitalist service. 5. Discharge dependent upon how pt progresses with therapies. The pt's case was discussed with Dr. Corbin.
--- NOTE | 2019-04-07 08:16 | PCM48HPAN ---
Post Anesthesia Note - EVALUATION WITHIN 48HRS OF ANESTHETIC Vital Signs in Normal Range: Yes Patient Participated in Evaluation: Yes Respiratory Function Stable: Yes Airway Patent: Yes Cardiovascular Function Stable: Yes Hydration Status Stable: Yes Pain Control Satisfactory: Yes Nausea and Vomiting Control Satisfactory: Yes Mental Status Recovered: Yes Vital Signs: Last Vital Signs Temp 36.7 C 04/07/19 03:13 Pulse 59 L 04/07/19 03:13 Resp 18 04/07/19 03:13 BP 132/57 L 04/07/19 03:13 Pulse Ox 93 L 04/07/19 07:23 - COMMENTS/OBSERVATIONS Free Text/Narrative:: no anesthesia complications noted
[2019-04-07] MEDS ORDERED: DULoxetine 20 MG Cap PO SCH (09:00)
[2019-04-07] MEDS: Apixaban 5 MG Tab PO SCH ×2 (10:00→20:50)
[2019-04-07] MEDS: Pantoprazole 40 MG Tab.CR PO SCH (10:00)
[2019-04-07] MEDS: Loratadine 10 MG Tab PO SCH (10:00)
[2019-04-07] MEDS: DULoxetine 20 MG Cap PO SCH (10:05)
[2019-04-07] MEDS: Cholecalciferol (Vitamin D3) 5,000 UNIT Tab PO SCH (10:10)
[2019-04-07] MEDS: SODIUM CHLORIDE PO SCH ×2 (10:10→20:53)
[2019-04-07] MEDS: Metoprolol Tartrate 100 MG Tab PO SCH ×2 (10:53→20:50)
[2019-04-07] MEDS: Losartan 100 MG Tab PO SCH (10:56)
[2019-04-07] MEDS: amLODIPine 10 MG Tab PO SCH (10:57)
[2019-04-07] MEDS ORDERED: Sodium Chloride 0.9% 500 ML IV SCH (16:15)
[2019-04-07] MEDS: Rosuvastatin 10 MG Tab PO SCH (20:52)
[2019-04-07] MEDS: Acetaminophen 325 MG Tab PO PRN (21:26)
[2019-04-08] MEDS: Acetaminophen/HYDROcodone 325-5 MG Tab PO PRN (03:54)
--- NOTE | 2019-04-08 06:49 | PCM.CONSN ---
- General Info Date of Service: 04/08/19 Admission Dx/Problem (Free Text): Admission Diagnosis/Problem Admission Diagnosis/Problem Osteoarthritis of hip Functional Status: Reports: Pain Controlled, Tolerating Diet, Ambulating, Urinating, Incentive Spirometry. Denies: New Symptoms - Review of Systems General: Reports: Weakness. Denies: Fever, Fatigue, Malaise, Chills HEENT: Reports: No Symptoms. Denies: Headaches, Sore Throat Pulmonary: Reports: No Symptoms. Denies: Shortness of Breath, Pleuritic Chest Pain, Cough, Sputum, Wheezing Cardiovascular: Reports: No Symptoms. Denies: Chest Pain, Palpitations, Dyspnea on Exertion Gastrointestinal: Reports: Constipation. Denies: Abdominal Pain, Diarrhea, Nausea, Vomiting Genitourinary: Reports: No Symptoms. Denies: Pain Musculoskeletal: Reports: Leg Pain (left ) Skin: Reports: No Symptoms. Denies: Cyanosis Neurological: Reports: Difficulty Walking, Weakness, Gait Disturbance. Denies: Confusion Psychiatric: Reports: No Symptoms - Patient Data Vitals - Most Recent: Last Vital Signs Temp 97.7 F 04/08/19 00:38 Pulse 59 L 04/08/19 03:53 Resp 16 04/08/19 03:53 BP 132/63 04/08/19 03:53 Pulse Ox 95 04/08/19 06:00 Weight - Most Recent: 141 lb 4.8 oz I&O - Last 24 Hours: Intake & Output 04/07/19 04/07/19 04/08/19 14:59 22:59 06:59 Intake Total 1070 100 Output Total 150 Balance 920 100 Lab Results Last 24 Hours: Laboratory Results - last 24 hr 04/07/19 04/07/19 04/08/19 Range/Units 05:50 05:50 05:07 WBC 12.31 H 12.85 H (3.98-10.04) K/mm3 RBC 3.65 L 3.27 L (3.98-5.22) M/mm3 Hgb 12.3 11.1 L (11.2-15.7) gm/dl Hct 37.9 34.0 L (34.1-44.9) % MCV 103.8 H D 104.0 H (79.4-94.8) fl MCH 33.7 H 33.9 H (25.6-32.2) pg MCHC 32.5 32.6 (32.2-35.5) g/dl RDW Std Deviation 48.1 H 47.2 H (36.4-46.3) fL Plt Count 227 193 (182-369) K/mm3 MPV 10.3 10.1 (9.4-12.3) fl Neut % (Auto) 79.3 H (34.0-71.1) % Lymph % (Auto) 6.1 L (19.3-51.7) % [place] % (Auto) 13.6 H (4.7-12.5) % Eos % (Auto) 0.6 L (0.7-5.8) Baso % (Auto) 0.2 (0.1-1.2) % Neut # (Auto) 10.19 H (1.56-6.13) K/mm3 Lymph # (Auto) 0.78 L (1.18-3.74) K/mm3 [place] # (Auto) 1.75 H (0.24-0.36) K/mm3 Eos # (Auto) 0.08 (0.04-0.36) K/mm3 Baso # (Auto) 0.02 (0.01-0.08) K/mm3 Sodium 133 L (136-145) mEq/L Potassium 3.6 (3.5-5.1) mEq/L Chloride 97 L (98-107) mEq/L Carbon Dioxide 27 (21-32) mEq/L Anion Gap 12.6 (5-15) BUN 9 (7-18) mg/dL Creatinine 0.5 L (0.55-1.02) mg/dL Est Cr Clr Drug Dosing 67.16 mL/min Estimated GFR (MDRD) > 60 (>60) mL/min BUN/Creatinine Ratio 18.0 (14-18) Glucose 117 H (83-115) mg/dL Calcium 8.6 (8.5-10.1) mg/dL Magnesium (1.8-2.4) mg/dl Total Bilirubin 0.8 (0.2-1.0) mg/dL AST 34 (15-37) U/L ALT 22 (14-59) U/L Alkaline Phosphatase 59 (46-116) U/L Total Protein 6.2 L (6.4-8.2) g/dl Albumin 3.0 L (3.4-5.0) g/dl Globulin 3.2 gm/dL Albumin/Globulin Ratio 0.9 L (1-2) 04/08/19 Range/Units 05:07 WBC (3.98-10.04) K/mm3 RBC (3.98-5.22) M/mm3 Hgb (11.2-15.7) gm/dl Hct (34.1-44.9) % MCV (79.4-94.8) fl MCH (25.6-32.2) pg MCHC (32.2-35.5) g/dl RDW Std Deviation (36.4-46.3) fL Plt Count (182-369) K/mm3 MPV (9.4-12.3) fl Neut % (Auto) (34.0-71.1) % Lymph % (Auto) (19.3-51.7) % [place] % (Auto) (4.7-12.5) % Eos % (Auto) (0.7-5.8) Baso % (Auto) (0.1-1.2) % Neut # (Auto) (1.56-6.13) K/mm3 Lymph # (Auto) (1.18-3.74) K/mm3 [place] # (Auto) (0.24-0.36) K/mm3 Eos # (Auto) (0.04-0.36) K/mm3 Baso # (Auto) (0.01-0.08) K/mm3 Sodium 132 L (136-145) mEq/L Potassium 4.1 (3.5-5.1) mEq/L Chloride 96 L (98-107) mEq/L Carbon Dioxide 30 (21-32) mEq/L Anion Gap 10.1 (5-15) BUN 12 (7-18) mg/dL Creatinine 0.6 (0.55-1.02) mg/dL Est Cr Clr Drug Dosing 56.37 mL/min Estimated GFR (MDRD) > 60 (>60) mL/min BUN/Creatinine Ratio 20.0 H (14-18) Glucose 116 H (83-115) mg/dL Calcium 8.9 (8.5-10.1) mg/dL Magnesium 1.4 L (1.8-2.4) mg/dl Total Bilirubin 1.1 H (0.2-1.0) mg/dL AST 29 (15-37) U/L ALT 16 (14-59) U/L Alkaline Phosphatase 49 (46-116) U/L Total Protein 5.5 L (6.4-8.2) g/dl Albumin 2.4 L (3.4-5.0) g/dl Globulin 3.1 gm/dL Albumin/Globulin Ratio 0.8 L (1-2) Med Orders - Current: Current Medications Acetaminophen (Tylenol) 650 mg PO Q4H PRN PRN Reason: Pain/Fever Last Admin: 04/07/19 21:26 Dose: 650 mg Hydrocodone Bitart/Acetaminophen ([place] 325-5 Mg) 1 - 2 tab PO Q4H PRN PRN Reason: Pain Last Admin: 04/08/19 03:54 Dose: 1 tab Amlodipine Besylate (Norvasc) 10 mg PO DAILY [facility] Last Admin: 04/07/19 10:57 Dose: Not Given Apixaban (Eliquis) 5 mg PO BID [facility] Last Admin: 04/07/19 20:50 Dose: 5 mg Bisacodyl (Dulcolax) 5 mg PO DAILY PRN PRN Reason: Constipation Cholecalciferol (Vitamin D3) 5,000 unit PO DAILY [facility] Last Admin: 04/07/19 10:10 Dose: 5,000 unit Duloxetine HCl (Cymbalta) 20 mg PO DAILY [facility] Last Admin: 04/07/19 10:05 Dose: 20 mg Sodium Chloride (Normal Saline) 500 mls @ 999 mls/hr IV .BOLUS [facility] Last Admin: 04/07/19 16:22 Dose: 999 mls/hr Loratadine (Claritin) 10 mg PO DAILY [facility] Last Admin: 04/07/19 10:00 Dose: 10 mg Losartan Potassium (Cozaar) 50 mg PO QAM [facility] Last Admin: 04/07/19 10:56 Dose: Not Given Magnesium Hydroxide (Milk Of Magnesia) 30 ml PO BID PRN PRN Reason: Constipation Metoprolol Tartrate (Lopressor) 100 mg PO BID [facility] Last Admin: 04/07/19 20:50 Dose: 100 mg Morphine Sulfate (Morphine) 2 mg IVPUSH Q2H PRN PRN Reason: Breakthrough Pain Naloxone HCl (Narcan) 0.1 mg IVPUSH Q5M PRN PRN Reason: Oversedation Ketotifen Fumarate (Drops Ptom) 1 drop EYEBOTH BID PRN PRN Reason: ITCHY EYES Linaclotide [Linzess ] 72 Mcg Pt's Own Medication 72 mcg PO ACLUNCH [facility] Sodium Chloride 1, (000 Mg Tab Ptom) 1,000 mg PO BID [facility] Last Admin: 04/07/19 20:53 Dose: Not Given Ondansetron HCl (Zofran) 4 mg IVPUSH Q6H PRN PRN Reason: Nausea/Vomiting Pantoprazole Sodium (Protonix) 40 mg PO DAILY [facility] Last Admin: 04/07/19 10:00 Dose: 40 mg Rosuvastatin Calcium (Crestor) 5 mg PO BEDTIME [facility] Last Admin: 04/07/19 20:52 Dose: 5 mg Senna (Senna) 8.6 mg PO BID PRN PRN Reason: Constipation Last Admin: 04/08/19 03:54 Dose: 8.6 mg Senna/Docusate Sodium (Senna Plus) 2 tab PO BEDTIME [facility] Last Admin: 04/07/19 20:50 Dose: 2 tab Discontinued Medications Bupivacaine HCl (Sensorcaine-Mpf 0.25%) Confirm Administered Dose 30 ml .ROUTE .STK-MED ONE Stop: 04/06/19 10:30 Cefazolin Sodium (Ancef) Confirm Administered Dose 2 gm .ROUTE .STK-MED ONE Stop: 04/06/19 06:04 Cefazolin Sodium (Ancef) Confirm Administered Dose 2 gm .ROUTE .STK-MED ONE Stop: 04/06/19 06:30 Cefazolin Sodium (Ancef) Confirm Administered Dose 2 gm .ROUTE .STK-MED ONE Stop: 04/06/19 10:30 Morphine Sulfate 8 mg/Epinephrine HCl 0.3 mg/Cefuroxime Sodium 750 mg/Ketorolac Tromethamine 30 mg/Sodium Chloride 7.9 ml 0 mg .XX ASDIRECTED PRN PRN Reason: Pain Stop: 04/06/19 14:00 Diphenhydramine HCl (Benadryl) 25 mg IVPUSH Q6H PRN PRN Reason: pruritis Stop: 04/06/19 15:00 Duloxetine HCl (Cymbalta) 20 mg PO DAILY [facility] Ephedrine Sulfate (Ephedrine 25 Mg/5 Ml Syringe) Confirm Administered Dose 25 mg IV .STK-MED ONE Stop: 04/06/19 12:29 Ephedrine Sulfate (Ephedrine Sulfate) 5 mg IVPUSH ASDIRECTED PRN PRN Reason: Hypotension Stop: 04/06/19 16:00 Famotidine (Pepcid) 20 mg PO Q12H [facility] Fentanyl (Sublimaze) Confirm Administered Dose 100 mcg .ROUTE .STK-MED ONE Stop: 04/06/19 06:04 Fentanyl (Sublimaze) Confirm Administered Dose 100 mcg .ROUTE .STK-MED ONE Stop: 04/06/19 06:30 Fentanyl (Sublimaze) 50 mcg IVPUSH Q5M PRN PRN Reason: Pain Stop: 04/06/19 15:00 Fluticasone Propionate (Flonase) 0 gm NASBOTH BID PRN PRN Reason: as directed Hydromorphone HCl (Dilaudid) 0.5 mg IVPUSH Q15M PRN PRN Reason: Pain (severe 7-10) Stop: 04/06/19 15:00 Lactated Ringer's (Ringers, Lactated) 1,000 mls @ 125 mls/hr IV ASDIRECTED [facility] Stop: 04/06/19 23:00 Last Admin: 04/06/19 10:13 Dose: 125 mls/hr Lidocaine HCl (Xylocaine-Mpf 1%) Confirm Administered Dose 0 mls @ as directed .ROUTE .STK-MED ONE Stop: 04/06/19 06:04 Lactated Ringer's (Ringers, Lactated) Confirm Administered Dose 0 mls @ as directed .ROUTE .STK-MED ONE Stop: 04/06/19 06:04 Lactated Ringer's (Ringers, Lactated) Confirm Administered Dose 1,000 mls @ as directed .ROUTE .STK-MED ONE Stop: 04/06/19 06:29 Lidocaine HCl (Xylocaine-Mpf 1%) Confirm Administered Dose 6 mls @ as directed .ROUTE .STK-MED ONE Stop: 04/06/19 06:30 Cefazolin Sodium/Dextrose 2 gm (/ Premix) 50 mls @ 100 mls/hr IV Q8H [facility] Stop: 04/07/19 07:29 Last Admin: 02/18/20 03:21 Dose: Not Given Lactated Ringer's (Ringers, Lactated) Confirm Administered Dose 1,000 mls @ as directed .ROUTE .STK-MED ONE Stop: 04/06/19 12:25 Phenylephrine HCl 1 mg/ Sodium (Chloride) 10.1 mls @ 1 mls/sec IV TITRATE KYLE; Protocol Stop: 04/06/19 16:00 Cefazolin Sodium/Dextrose 2 gm (/ Premix) 50 mls @ 100 mls/hr IV Q8H KYLE Stop: 04/07/19 11:29 Last Admin: 04/07/19 10:13 Dose: 100 mls/hr Iodine (Iodine 2% Mild Tincture) Confirm Administered Dose 30 ml .ROUTE .STK- MED ONE Stop: 04/06/19 10:30 Ketamine HCl (Ketalar) Confirm Administered Dose 500 mg .ROUTE .STK-MED ONE Stop: 04/06/19 06:05 Ketamine HCl (Ketalar) Confirm Administered Dose 500 mg .ROUTE .STK-MED ONE Stop: 04/06/19 06:31 Ketorolac Tromethamine (Toradol) Confirm Administered Dose 30 mg .ROUTE .STK- MED ONE Stop: 04/06/19 06:04 Lidocaine/Sodium Bicarbonate (Buffered Lidocaine 1% In Ns 8.4%) 0.25 ml IDERM ONETIME PRN PRN Reason: Prior to IV Start Stop: 04/06/19 18:00 Last Admin: 04/06/19 10:13 Dose: 0.25 ml Midazolam HCl (Versed 1 Mg/Ml) Confirm Administered Dose 2 mg .ROUTE .STK-MED ONE Stop: 04/06/19 06:04 Midazolam HCl (Versed 1 Mg/Ml) Confirm Administered Dose 2 mg .ROUTE .STK-MED ONE Stop: 04/06/19 06:31 Miscellaneous Medication (Phenylephrine 1 Mg/10 Ml-Ns) Confirm Administered Dose 1 mg IV .STK-MED ONE Stop: 04/06/19 06:04 Miscellaneous Medication (Phenylephrine 1 Mg/10 Ml-Ns) Confirm Administered Dose 1 mg IV .STK-MED ONE Stop: 04/06/19 06:30 Ondansetron HCl (Zofran) Confirm Administered Dose 4 mg .ROUTE .STK-MED ONE Stop: 04/06/19 06:04 Ondansetron HCl (Zofran) Confirm Administered Dose 4 mg .ROUTE .STK-MED ONE Stop: 04/06/19 06:30 Ondansetron HCl (Zofran) 4 mg IVPUSH ONETIME PRN PRN Reason: Nausea/Vomiting Stop: 04/06/19 16:00 Propofol (Diprivan 20 Ml) Confirm Administered Dose 400 mg .ROUTE .STK-MED ONE Stop: 04/06/19 06:04 Propofol (Diprivan 20 Ml) Confirm Administered Dose 400 mg .ROUTE .STK-MED ONE Stop: 04/06/19 06:30 Sodium Chloride (Saline Flush) 10 ml FLUSH ASDIRECTED PRN PRN Reason: Keep Vein Open Stop: 04/06/19 18:00 Tranexamic Acid (Cyklokapron) Confirm Administered Dose 1,000 mg .ROUTE .STK- MED ONE Stop: 04/06/19 10:29 Triamcinolone Acetonide (Triamcinolone Acetonide 0.1% Crm) gm TOP ASDIRECTED PRN PRN Reason: ASDIRECTED Vancomycin HCl (Vancomycin) Confirm Administered Dose 1 gm .ROUTE .STK-MED ONE Stop: 04/06/19 10:30 - Exam Quality Assessment: Supplemental Oxygen, DVT Prophylaxis. No: Urine Catheter General: Alert, Oriented, Cooperative, No Acute Distress HEENT: Pupils Equal, Pupils Reactive, Mucous Membr. Moist/[place] Neck: Supple, Trachea Midline Lungs: Clear to Auscultation, Normal Respiratory Effort Cardiovascular: Regular Rate, Regular Rhythm, Other (pacemaker) GI/Abdominal Exam: Normal Bowel Sounds, Soft, Non-Tender, No Distention (Female) Exam: Deferred Back Exam: Normal Inspection, Full Range of Motion Extremities: Normal Capillary Refill, Leg Pain, Limited Range of Motion, Other ( Bandage in place on right leg. Cooling pack in place. ) Peripheral Pulses: 2+: Radial (L), Radial (R), Dorsalis Pedis (L), Dorsalis Pedis (R) Skin: Warm, Dry, Intact Neurological: No New Focal Deficit Psy/Mental Status: Alert, Normal Affect, Normal Mood Sepsis Event Note - Evaluation Sepsis Screening Result: No Definite Risk - Focused Exam Vital Signs: Vital Signs Temp Pulse Resp BP Pulse Ox Pulse Ox 04/08/19 06:00 95 04/08/19 04:00 95 04/08/19 03:53 59 L 16 132/63 95 04/08/19 00:38 97.7 F 59 L 16 123/59 L 93 L 04/07/19 20:50 62 120/47 L 04/07/19 20:17 97.3 F 62 18 120/47 L 93 L Date Exam was Performed: 04/08/19 Time Exam was Performed: 11:33 Consult PN Assessment/Plan POD#: 2 Procedures: Procedures AGENT NOS ASSAY W/OPTIC (08/27/14) ASSAY OF AMYLASE (07/25/13) ASSAY OF BLOOD/URIC ACID (07/10/16) ASSAY OF CK (CPK) (07/31/17) ASSAY OF LIPASE (03/06/17) ASSAY OF MAGNESIUM (12/19/17) ASSAY OF NATRIURETIC PEPTIDE (05/02/18) ASSAY OF PREALBUMIN (03/25/19) ASSAY OF TROPONIN QUANT (05/17/18) ASSAY OF URINE OSMOLALITY (04/21/14) ASSAY OF URINE SODIUM (04/21/14) ASSAY THYROID STIM HORMONE (05/02/18) BL SMEAR W/DIFF WBC COUNT (12/19/17) BLOOD CULTURE FOR BACTERIA (08/27/14) C-REACTIVE PROTEIN (05/17/18) CHEST X-RAY 2VW FRONTAL&LATL (08/31/14) COMPLETE CBC AUTOMATED (11/19/18) COMPLETE CBC W/AUTO DIFF WBC (05/17/18) COMPREHEN METABOLIC PANEL (03/25/19) CONTRST X-RAY UPPR GI TRACT (03/15/17) CREATINE MB FRACTION (08/27/14) CT ABD & PELV 1/> REGNS (04/29/14) CT ABD & PELV W/CONTRAST (01/31/16) CT ABD & PELVIS W/O CONTRAST (07/15/13) CT ANGIOGRAPHY CHEST (08/27/14) CT CHEST SPINE W/O DYE (12/19/17) CT HEAD/BRAIN W/O DYE (08/27/14) CT THORAX W/O DYE (09/29/18) CULTURE OTHR SPECIMN AEROBIC (05/07/18) DRAIN/INJ JOINT/BURSA W/O US (01/13/19) DXA BONE DENSITY AXIAL (03/27/19) ELECTROCARDIOGRAM TRACING (05/17/18) EMERGENCY DEPT VISIT (05/17/18) EMERGENCY DEPT VISIT (08/27/14) EMERGENCY DEPT VISIT (09/26/13) EVALUATE PT USE OF INHALER (08/31/14) FIBRIN DEGRADATION QUANT (08/27/14) GLYCOSYLATED HEMOGLOBIN TEST (03/25/19) HPYLORI STOOL IA (02/01/16) HYDRATE IV INFUSION ADD-ON (05/17/18) LIPID PANEL (09/12/18) MEASURE BLOOD OXYGEN LEVEL (08/27/14) METABOLIC PANEL TOTAL CA (07/12/16) MICROBE SUSCEPTIBLE HAYLEE (05/27/17) MR-STAPH DNA AMP PROBE (01/06/18) PERQ VERTEBRAL AUGMENTATION (01/14/18) POLYSOM 6/> YRS 4/> YAN (09/04/16) PROTHROMBIN TIME (03/25/19) RBC SED RATE AUTOMATED (04/13/16) RENAL FUNCTION PANEL (11/03/14) ROUTINE VENIPUNCTURE (05/17/18) SMEAR GRAM STAIN (05/07/18) THER/PROPH/DIAG INJ IV PUSH (05/17/18) THER/PROPH/DIAG IV INF ADDON (08/27/14) THER/PROPH/DIAG IV INF INIT (08/27/14) THROMBOPLASTIN TIME PARTIAL (03/25/19) TRANSVAGINAL US NON-OB (04/19/16) TX/PRO/DX INJ NEW DRUG ADDON (08/27/14) UR ALBUMIN SEMIQUANTITATIVE (07/01/15) URINALYSIS AUTO W/SCOPE (05/17/18) URINE BACTERIA CULTURE (05/27/17) URINE CULTURE/COLONY COUNT (02/02/19) US EXAM ABDO BACK WALL COMP (11/04/17) US EXAM ABDOM COMPLETE (12/17/13) US EXAM PELVIC COMPLETE (12/17/13) VITAMIN B-12 (06/25/18) VITAMIN D 25 HYDROXY (06/25/18) X-RAY EXAM ABDOMEN 2 VIEWS (05/14/18) X-RAY EXAM CHEST 1 VIEW (12/18/17) X-RAY EXAM CHEST 2 VIEWS (03/25/19) X-RAY EXAM KNEE 4 OR MORE (12/16/15) X-RAY EXAM L-S SPINE 2/3 VWS (11/01/16) X-RAY EXAM OF ABDOMEN (07/25/13) X-RAY EXAM OF ABDOMEN (07/10/13) X-RAY EXAM OF TOE(S) (07/12/16) X-RAY EXAM THORAC SPINE 2VWS (03/26/18) (1) Paroxysmal A-fib SNOMED Code(s): 009828463 Code(s): I48.0 - PAROXYSMAL ATRIAL FIBRILLATION Priority: Medium Current Visit: Yes (2) HTN (hypertension) SNOMED Code(s): 76344800 Code(s): I10 - ESSENTIAL (PRIMARY) HYPERTENSION Priority: Medium Current Visit: No Qualifiers: Hypertension type: unspecified Qualified Code(s): I10 - Essential (primary ) hypertension (3) HLD (hyperlipidemia) SNOMED Code(s): 58598881 Code(s): E78.5 - HYPERLIPIDEMIA, UNSPECIFIED Priority: Low Current Visit : No Qualifiers: Hyperlipidemia type: unspecified Qualified Code(s): E78.5 - Hyperlipidemia , unspecified (4) Pacemaker SNOMED Code(s): 450135381 Code(s): Z95.0 - PRESENCE OF CARDIAC PACEMAKER Priority: Medium Current Visit: No (5) Chronic anticoagulation SNOMED Code(s): 219697283 Code(s): Z79.01 - MUSIC JOURNALIST (CURRENT) USE OF ANTICOAGULANTS Priority: Medium Current Visit: No (6) GERD (gastroesophageal reflux disease) SNOMED Code(s): 443531569 Code(s): K21.9 - GASTRO-ESOPHAGEAL REFLUX DISEASE WITHOUT ESOPHAGITIS Priority: Low Current Visit: No Qualifiers: Esophagitis presence: esophagitis presence not specified Qualified Code(s) : K21.9 - Gastro-esophageal reflux disease without esophagitis (7) Polymyalgia rheumatica SNOMED Code(s): 08541899 Code(s): M35.3 - POLYMYALGIA RHEUMATICA Priority: Low Current Visit: No (8) COPD (chronic obstructive pulmonary disease) SNOMED Code(s): 94146816 Code(s): J44.9 - CHRONIC OBSTRUCTIVE PULMONARY DISEASE, UNSPECIFIED Priority: Medium Current Visit: No Qualifiers: COPD type: unspecified COPD Qualified Code(s): J44.9 - Chronic obstructive pulmonary disease, unspecified (9) History of subdural hematoma (post traumatic) SNOMED Code(s): 912246845, 341761864 Code(s): Z87.828 - PERSONAL HISTORY OF OTH (HEALED) PHYSICAL INJURY AND TRAUMA Priority: Low Current Visit: No (10) Anxiety SNOMED Code(s): 64438483 Code(s): F41.9 - ANXIETY DISORDER, UNSPECIFIED Priority: Low Current Visit: No (11) Arthritis SNOMED Code(s): 9581296 Code(s): M19.90 - UNSPECIFIED OSTEOARTHRITIS, UNSPECIFIED SITE Priority: Medium Current Visit: Yes (12) Cardiomegaly SNOMED Code(s): 7730312 Code(s): I51.7 - CARDIOMEGALY Priority: Medium Current Visit: No (13) Chronic cough SNOMED Code(s): 09022548 Code(s): R05 - COUGH Priority: Low Current Visit: No (14) Depression SNOMED Code(s): 77521460 Code(s): F32.9 - MAJOR DEPRESSIVE DISORDER, SINGLE EPISODE, UNSPECIFIED Priority: Low Current Visit: No Qualifiers: Depression Type: unspecified Qualified Code(s): F32.9 - Major depressive disorder, single episode, unspecified (15) Diastolic dysfunction SNOMED Code(s): 5999384 Code(s): I51.89 - OTHER ILL-DEFINED HEART DISEASES Current Visit: Yes (16) Diverticulosis SNOMED Code(s): 245936595 Code(s): K57.90 - DVRTCLOS OF INTEST, PART UNSP, W/O PERF OR ABSCESS W/O BLEED Priority: Low Current Visit: No (17) Dizzy spells SNOMED Code(s): 282654493 Code(s): R42 - DIZZINESS AND GIDDINESS Priority: Low Current Visit: No (18) Edema SNOMED Code(s): 486043570, 210630266 Code(s): R60.9 - EDEMA, UNSPECIFIED Priority: Low Current Visit: No Qualifiers: Edema type: unspecified Qualified Code(s): R60.9 - Edema, unspecified (19) Elevated fasting glucose SNOMED Code(s): 95061144 Code(s): R73.01 - IMPAIRED FASTING GLUCOSE Priority: Low Current Visit: No (20) Hiatal hernia SNOMED Code(s): 45592022 Code(s): K44.9 - DIAPHRAGMATIC HERNIA WITHOUT OBSTRUCTION OR GANGRENE Priority: Low Current Visit: No (21) IBS (irritable bowel syndrome) SNOMED Code(s): 90733345 Code(s): K58.9 - IRRITABLE BOWEL SYNDROME WITHOUT DIARRHEA Priority: Low Current Visit: No Qualifiers: Irritable bowel syndrome type: unspecified Qualified Code(s): K58.9 - Irritable bowel syndrome without diarrhea (22) Insomnia SNOMED Code(s): 761208954 Code(s): G47.00 - INSOMNIA, UNSPECIFIED Priority: Low Current Visit: No Qualifiers: Insomnia type: unspecified Qualified Code(s): G47.00 - Insomnia, unspecified (23) Mitral valve prolapse SNOMED Code(s): 607849495 Code(s): I34.1 - NONRHEUMATIC MITRAL (VALVE) PROLAPSE Priority: Medium Current Visit: Yes (24) Mitral regurgitation SNOMED Code(s): 20415892 Code(s): I34.0 - NONRHEUMATIC MITRAL (VALVE) INSUFFICIENCY Priority: Medium Current Visit: Yes Qualifiers: Cardiac valve disease etiology: etiology unspecified Qualified Code(s): I34.0 - Nonrheumatic mitral (valve) insufficiency (25) Overactive bladder SNOMED Code(s): 521733715 Code(s): N32.81 - OVERACTIVE BLADDER Priority: Low Current Visit: No (26) Osteoporosis SNOMED Code(s): 67653473 Code(s): M81.0 - AGE-RELATED OSTEOPOROSIS W/O CURRENT PATHOLOGICAL FRACTURE Priority: High Current Visit: Yes Qualifiers: Osteoporosis type: unspecified Presence of current pathological fracture: unspecified Qualified Code(s): M81.0 - Age-related osteoporosis without current pathological fracture (27) Peripheral sensory neuropathy SNOMED Code(s): 80230567 Code(s): G62.9 - POLYNEUROPATHY, UNSPECIFIED Priority: Medium Current Visit: No (28) Recurrent UTI SNOMED Code(s): 007601964 Code(s): N39.0 - URINARY TRACT INFECTION, SITE NOT SPECIFIED Priority: Low Current Visit: No (29) SIADH (syndrome of inappropriate ADH production) SNOMED Code(s): 86786612 Code(s): E22.2 - SYNDROME OF INAPPROPRIATE SECRETION OF ANTIDIURETIC HORMONE Priority: Medium Current Visit: No (30) Small intestine disorder SNOMED Code(s): 560770127 Code(s): K63.9 - DISEASE OF INTESTINE, UNSPECIFIED Priority: Medium Current Visit: No (31) Sick sinus syndrome SNOMED Code(s): 01724976 Code(s): I49.5 - SICK SINUS SYNDROME Priority: Medium Current Visit: No (32) Trigeminal neuralgia SNOMED Code(s): 37286648 Code(s): G50.0 - TRIGEMINAL NEURALGIA Priority: Medium Current Visit: No (33) Umbilical hernia SNOMED Code(s): 148604384 Code(s): K42.9 - UMBILICAL HERNIA WITHOUT OBSTRUCTION OR GANGRENE Priority : Low Current Visit: No Qualifiers: Obstruction and gangrene presence: without obstruction or gangrene Qualified Code(s): K42.9 - Umbilical hernia without obstruction or gangrene (34) Headache SNOMED Code(s): 34201801 Code(s): R51 - HEADACHE Priority: Low Current Visit: No Qualifiers: Headache type: unspecified Headache chronicity pattern: unspecified pattern Intractability: not intractable Qualified Code(s): R51 - Headache (35) Hyponatremia SNOMED Code(s): 07878013 Code(s): E87.1 - HYPO-OSMOLALITY AND HYPONATREMIA Priority: Low Current Visit: No (36) TMJ, Temporomandibular ioxez-ftxd-eibnlfuxxqw syndrome, Myofascial Pain SNOMED Code(s): 093515748 Code(s): M26.62 - ARTHRALGIA OF TEMPOROMANDIBULAR JOINT * DO NOT USE * Priority: Low Current Visit: No (37) S/P total hip arthroplasty SNOMED Code(s): 988151712362, 096147934058 Code(s): Z96.649 - PRESENCE OF UNSPECIFIED ARTIFICIAL HIP JOINT Priority: High Current Visit: Yes Qualifiers: Laterality: left Qualified Code(s): Z96.642 - Presence of left artificial hip joint (38) Osteoarthritis SNOMED Code(s): 197870751 Code(s): M19.90 - UNSPECIFIED OSTEOARTHRITIS, UNSPECIFIED SITE Priority: High Current Visit: Yes Qualifiers: Osteoarthritis location: hip Osteoarthritis type: primary Laterality: left Qualified Code(s): M16.12 - Unilateral primary osteoarthritis, left hip (39) Anemia SNOMED Code(s): 428266033 Code(s): D64.9 - ANEMIA, UNSPECIFIED Priority: Medium Current Visit: No Qualifiers: Anemia type: unspecified type Qualified Code(s): D64.9 - Anemia, unspecified (40) Cervical stenosis of spine Priority: Low Current Visit: No (41) Hemorrhoids SNOMED Code(s): 98523848 Code(s): K64.9 - UNSPECIFIED HEMORRHOIDS Priority: Low Current Visit: No Qualifiers: Hemorrhoid type: unspecified Qualified Code(s): K64.9 - Unspecified hemorrhoids (42) Migraines SNOMED Code(s): 37266684 Code(s): G43.909 - MIGRAINE, UNSP, NOT INTRACTABLE, WITHOUT STATUS MIGRAINOSUS Priority: Low Current Visit: No Qualifiers: Migraine type: unspecified Status migrainosus presence: without status migrainosus Intractability: not intractable Qualified Code(s): G43.909 - Migraine, unspecified, not intractable, without status migrainosus (43) Vitamin D deficiency SNOMED Code(s): 66877941 Code(s): E55.9 - VITAMIN D DEFICIENCY, UNSPECIFIED Priority: Low Current Visit: No (44) Seborrheic keratoses SNOMED Code(s): 606251555 Code(s): L82.1 - OTHER SEBORRHEIC KERATOSIS Priority: Low Current Visit: No (45) Notalgia paresthetica SNOMED Code(s): 768432081 Code(s): R20.2 - PARESTHESIA OF SKIN Priority: Low Current Visit: No (46) Hypomagnesemia SNOMED Code(s): 327453510 Code(s): E83.42 - HYPOMAGNESEMIA Priority: High Current Visit: Yes Problem List Initiated/Reviewed/Updated: Yes My Orders Last 24 Hours: My Active Orders 04/08/19 05:07 CBC WITH AUTO DIFF [HEME] AM Plan: I/P: Acute: S/P left total hip arthroplasty - post-operative day 2 -DVT prophylaxis and pain management per primary care team -PT/OT -IS/RT -Monitor oxygen saturation -Titrate oxygen as needed -Home medications reviewed -Vital signs stable -Monitor labs -Pre-operative Hgb was 13.3; Now 12.3-->11.1 -Pre-operative GFR was >60; Now greater than 60 -Pre-operative Cl was 96; Now 97-->96 -Pre-operative Na was 134; Now 133-->132 -Pre-operative A1C was 6.90% Osteoarthritis of left hip -Pain management per primary care team Hypomagnesemia -Magnesium 1.4 -Supplement Hyponatremia -Acute on chronic -Family has not brought home medications in -Starting BID thermotabs until discharge Chronic: Paroxysmal A-Fib HTN HLD Pacemaker Chronic anticoagulation GERD Polymyalgia Rheumatica COPD Hx/o subdural hematoma 2/2 a fall Anxiety Arthritis Cardiomegaly Depression CHF with diastolic dysfunction Diverticulosis Dizzy spells Edema Elevated fasting glucose Headache Hiatal hernia Hyponatremia IBS Insomnia Mitral valve prolapse with mitral regurgitation Overactive bladder Osteoporosis Peripheral sensory neuropathy Recurrent UTIs SIADH Small intestine disorder Sick sinus syndrome TMJ Trigeminal neuralgia Umbilical hernia Notalgia paresthetica Cervical stenosis Vitamin D deficiency Anemia Migraines Plan: Telemetry CM/SW for discharge planning GI prophylaxis Home medications as indicated Other orders as listed above Routine AM labs Will require SNF placement at discharge. She is a full code. Her PCP is Jennifer Hayes PA-C Placement at [facility] in [place]. PT/OT recommending placement. Likely discharge 04/09/19 Thank you for allowing us to participate in the care of this patient!!
[2019-04-08] MEDS ORDERED: Magnesium Sulfate/Water 2 GM in Premix Bag 1 BAG IV ONE (07:00)
[2019-04-08] MEDS: Losartan 100 MG Tab PO SCH (09:21)
[2019-04-08] MEDS: Pantoprazole 40 MG Tab.CR PO SCH (09:22)
[2019-04-08] MEDS: Loratadine 10 MG Tab PO SCH (09:22)
[2019-04-08] MEDS: DULoxetine 20 MG Cap PO SCH (09:22)
[2019-04-08] MEDS: Metoprolol Tartrate 100 MG Tab PO SCH ×3 (09:22→23:25)
[2019-04-08] MEDS: amLODIPine 10 MG Tab PO SCH (09:22)
[2019-04-08] MEDS: Cholecalciferol (Vitamin D3) 5,000 UNIT Tab PO SCH (09:22)
[2019-04-08] MEDS: Apixaban 5 MG Tab PO SCH ×3 (09:23→23:25)
[2019-04-08] MEDS: Acetaminophen 325 MG Tab PO PRN ×3 (09:23→19:49)
[2019-04-08] MEDS: SODIUM CHLORIDE PO SCH (09:25)
[2019-04-08] MEDS ORDERED: LINACLOTIDE 72 MCG PO SCH (10:00)
--- NOTE | 2019-04-08 10:39 | PCM.SURGPN ---
- General Info Date of Service: 04/08/19 POD#: 2 Functional Status: Reports: Pain Controlled, Tolerating Diet, Ambulating, Urinating, Incentive Spirometry, Other (The pt has been able to ambulate short distances.) - Patient Data Vitals - Most Recent: Last Vital Signs Temp 98.1 F 04/08/19 07:33 Pulse 60 04/08/19 09:22 Resp 16 04/08/19 07:33 BP 122/60 04/08/19 09:22 Pulse Ox 97 04/08/19 07:33 Weight - Most Recent: 141 lb 4.8 oz I&O - Last 24 Hours: Intake & Output 04/07/19 04/08/19 04/08/19 22:59 06:59 14:59 Intake Total 1070 100 Output Total 150 Balance 920 100 Lab Results Last 24 Hrs: Laboratory Results - last 24 hr 04/08/19 04/08/19 Range/Units 05:07 05:07 WBC 12.85 H (3.98-10.04) K/mm3 RBC 3.27 L (3.98-5.22) M/mm3 Hgb 11.1 L (11.2-15.7) gm/dl Hct 34.0 L (34.1-44.9) % MCV 104.0 H (79.4-94.8) fl MCH 33.9 H (25.6-32.2) pg MCHC 32.6 (32.2-35.5) g/dl RDW Std Deviation 47.2 H (36.4-46.3) fL Plt Count 193 (182-369) K/mm3 MPV 10.1 (9.4-12.3) fl Neut % (Auto) 79.3 H (34.0-71.1) % Lymph % (Auto) 6.1 L (19.3-51.7) % [place] % (Auto) 13.6 H (4.7-12.5) % Eos % (Auto) 0.6 L (0.7-5.8) Baso % (Auto) 0.2 (0.1-1.2) % Neut # (Auto) 10.19 H (1.56-6.13) K/mm3 Lymph # (Auto) 0.78 L (1.18-3.74) K/mm3 [place] # (Auto) 1.75 H (0.24-0.36) K/mm3 Eos # (Auto) 0.08 (0.04-0.36) K/mm3 Baso # (Auto) 0.02 (0.01-0.08) K/mm3 Manual Slide Review Abnormal smear Sodium 132 L (136-145) mEq/L Potassium 4.1 (3.5-5.1) mEq/L Chloride 96 L (98-107) mEq/L Carbon Dioxide 30 (21-32) mEq/L Anion Gap 10.1 (5-15) BUN 12 (7-18) mg/dL Creatinine 0.6 (0.55-1.02) mg/dL Est Cr Clr Drug Dosing 56.37 mL/min Estimated GFR (MDRD) > 60 (>60) mL/min BUN/Creatinine Ratio 20.0 H (14-18) Glucose 116 H (83-115) mg/dL Calcium 8.9 (8.5-10.1) mg/dL Magnesium 1.4 L (1.8-2.4) mg/dl Total Bilirubin 1.1 H (0.2-1.0) mg/dL AST 29 (15-37) U/L ALT 16 (14-59) U/L Alkaline Phosphatase 49 (46-116) U/L Total Protein 5.5 L (6.4-8.2) g/dl Albumin 2.4 L (3.4-5.0) g/dl Globulin 3.1 gm/dL Albumin/Globulin Ratio 0.8 L (1-2) Med Orders - Current: Current Medications Acetaminophen (Tylenol) 650 mg PO Q4H PRN PRN Reason: Pain/Fever Last Admin: 04/08/19 09:23 Dose: 650 mg Hydrocodone Bitart/Acetaminophen ([place] 325-5 Mg) 1 - 2 tab PO Q4H PRN PRN Reason: Pain Last Admin: 04/08/19 03:54 Dose: 1 tab Amlodipine Besylate (Norvasc) 10 mg PO DAILY [facility] Last Admin: 04/08/19 09:22 Dose: 10 mg Apixaban (Eliquis) 5 mg PO BID [facility] Last Admin: 04/08/19 09:23 Dose: 5 mg Bisacodyl (Dulcolax) 5 mg PO DAILY PRN PRN Reason: Constipation Cholecalciferol (Vitamin D3) 5,000 unit PO DAILY [facility] Last Admin: 04/08/19 09:22 Dose: 5,000 unit Duloxetine HCl (Cymbalta) 20 mg PO DAILY [facility] Last Admin: 04/08/19 09:22 Dose: 20 mg Sodium Chloride (Normal Saline) 500 mls @ 999 mls/hr IV .BOLUS [facility] Last Admin: 04/07/19 16:22 Dose: 999 mls/hr Loratadine (Claritin) 10 mg PO DAILY [facility] Last Admin: 04/08/19 09:22 Dose: 10 mg Losartan Potassium (Cozaar) 50 mg PO QAM [facility] Last Admin: 04/08/19 09:21 Dose: 50 mg Magnesium Hydroxide (Milk Of Magnesia) 30 ml PO BID PRN PRN Reason: Constipation Metoprolol Tartrate (Lopressor) 100 mg PO BID [facility] Last Admin: 04/08/19 09:22 Dose: 100 mg Morphine Sulfate (Morphine) 2 mg IVPUSH Q2H PRN PRN Reason: Breakthrough Pain Naloxone HCl (Narcan) 0.1 mg IVPUSH Q5M PRN PRN Reason: Oversedation Ketotifen Fumarate (Drops Ptom) 1 drop EYEBOTH BID PRN PRN Reason: ITCHY EYES Linaclotide [Linzess ] 72 Mcg Pt's Own Medication 72 mcg PO ACLUNCH [facility] Last Admin: 04/08/19 09:25 Dose: Not Given Sodium Chloride 1, (000 Mg Tab Ptom) 1,000 mg PO BID [facility] Last Admin: 04/08/19 09:25 Dose: Not Given Ondansetron HCl (Zofran) 4 mg IVPUSH Q6H PRN PRN Reason: Nausea/Vomiting Pantoprazole Sodium (Protonix) 40 mg PO DAILY [facility] Last Admin: 04/08/19 09:22 Dose: 40 mg Rosuvastatin Calcium (Crestor) 5 mg PO BEDTIME [facility] Last Admin: 04/07/19 20:52 Dose: 5 mg Senna (Senna) 8.6 mg PO BID PRN PRN Reason: Constipation Last Admin: 04/08/19 03:54 Dose: 8.6 mg Senna/Docusate Sodium (Senna Plus) 2 tab PO BEDTIME [facility] Last Admin: 04/07/19 20:50 Dose: 2 tab Discontinued Medications Bupivacaine HCl (Sensorcaine-Mpf 0.25%) Confirm Administered Dose 30 ml .ROUTE .STK-MED ONE Stop: 04/06/19 10:30 Cefazolin Sodium (Ancef) Confirm Administered Dose 2 gm .ROUTE .STK-MED ONE Stop: 04/06/19 06:04 Cefazolin Sodium (Ancef) Confirm Administered Dose 2 gm .ROUTE .STK-MED ONE Stop: 04/06/19 06:30 Cefazolin Sodium (Ancef) Confirm Administered Dose 2 gm .ROUTE .STK-MED ONE Stop: 04/06/19 10:30 Morphine Sulfate 8 mg/Epinephrine HCl 0.3 mg/Cefuroxime Sodium 750 mg/Ketorolac Tromethamine 30 mg/Sodium Chloride 7.9 ml 0 mg .XX ASDIRECTED PRN PRN Reason: Pain Stop: 04/06/19 14:00 Diphenhydramine HCl (Benadryl) 25 mg IVPUSH Q6H PRN PRN Reason: pruritis Stop: 04/06/19 15:00 Duloxetine HCl (Cymbalta) 20 mg PO DAILY [facility] Ephedrine Sulfate (Ephedrine 25 Mg/5 Ml Syringe) Confirm Administered Dose 25 mg IV .STK-MED ONE Stop: 04/06/19 12:29 Ephedrine Sulfate (Ephedrine Sulfate) 5 mg IVPUSH ASDIRECTED PRN PRN Reason: Hypotension Stop: 04/06/19 16:00 Famotidine (Pepcid) 20 mg PO Q12H [facility] Fentanyl (Sublimaze) Confirm Administered Dose 100 mcg .ROUTE .STK-MED ONE Stop: 04/06/19 06:04 Fentanyl (Sublimaze) Confirm Administered Dose 100 mcg .ROUTE .STK-MED ONE Stop: 04/06/19 06:30 Fentanyl (Sublimaze) 50 mcg IVPUSH Q5M PRN PRN Reason: Pain Stop: 04/06/19 15:00 Fluticasone Propionate (Flonase) 0 gm NASBOTH BID PRN PRN Reason: as directed Hydromorphone HCl (Dilaudid) 0.5 mg IVPUSH Q15M PRN PRN Reason: Pain (severe 7-10) Stop: 04/06/19 15:00 Lactated Ringer's (Ringers, Lactated) 1,000 mls @ 125 mls/hr IV ASDIRECTED [facility] Stop: 04/06/19 23:00 Last Admin: 04/06/19 10:13 Dose: 125 mls/hr Lidocaine HCl (Xylocaine-Mpf 1%) Confirm Administered Dose 0 mls @ as directed .ROUTE .STK-MED ONE Stop: 04/06/19 06:04 Lactated Ringer's (Ringers, Lactated) Confirm Administered Dose 0 mls @ as directed .ROUTE .STK-MED ONE Stop: 04/06/19 06:04 Lactated Ringer's (Ringers, Lactated) Confirm Administered Dose 1,000 mls @ as directed .ROUTE .STK-MED ONE Stop: 04/06/19 06:29 Lidocaine HCl (Xylocaine-Mpf 1%) Confirm Administered Dose 6 mls @ as directed .ROUTE .ST-MED ONE Stop: 04/06/19 06:30 Cefazolin Sodium/Dextrose 2 gm (/ Premix) 50 mls @ 100 mls/hr IV Q8H [facility] Stop: 04/07/19 07:29 Last Admin: 04/07/19 03:21 Dose: Not Given Lactated Ringer's (Ringers, Lactated) Confirm Administered Dose 1,000 mls @ as directed .ROUTE .[facility] ONE Stop: 04/06/19 12:25 Phenylephrine HCl 1 mg/ Sodium (Chloride) 10.1 mls @ 1 mls/sec IV TITRATE [facility]; Protocol Stop: 04/06/19 16:00 Cefazolin Sodium/Dextrose 2 gm (/ Premix) 50 mls @ 100 mls/hr IV Q8H [facility] Stop: 04/07/19 11:29 Last Admin: 04/07/19 10:13 Dose: 100 mls/hr Magnesium Sulfate 2 gm/ Premix 50 mls @ 25 mls/hr IV ONETIME ONE Stop: 04/08/19 08:59 Last Admin: 04/08/19 07:34 Dose: 25 mls/hr Iodine (Iodine 2% Mild Tincture) Confirm Administered Dose 30 ml .ROUTE .STK- MED ONE Stop: 04/06/19 10:30 Ketamine HCl (Ketalar) Confirm Administered Dose 500 mg .ROUTE .STK-MED ONE Stop: 04/06/19 06:05 Ketamine HCl (Ketalar) Confirm Administered Dose 500 mg .ROUTE .STK-MED ONE Stop: 04/06/19 06:31 Ketorolac Tromethamine (Toradol) Confirm Administered Dose 30 mg .ROUTE .STK- MED ONE Stop: 04/06/19 06:04 Lidocaine/Sodium Bicarbonate (Buffered Lidocaine 1% In Ns 8.4%) 0.25 ml IDERM ONETIME PRN PRN Reason: Prior to IV Start Stop: 04/06/19 18:00 Last Admin: 04/06/19 10:13 Dose: 0.25 ml Midazolam HCl (Versed 1 Mg/Ml) Confirm Administered Dose 2 mg .ROUTE .STK-MED ONE Stop: 04/06/19 06:04 Midazolam HCl (Versed 1 Mg/Ml) Confirm Administered Dose 2 mg .ROUTE .STK-MED ONE Stop: 04/06/19 06:31 Miscellaneous Medication (Phenylephrine 1 Mg/10 Ml-Ns) Confirm Administered Dose 1 mg IV .STK-MED ONE Stop: 04/06/19 06:04 Miscellaneous Medication (Phenylephrine 1 Mg/10 Ml-Ns) Confirm Administered Dose 1 mg IV .STK-MED ONE Stop: 04/06/19 06:30 Ondansetron HCl (Zofran) Confirm Administered Dose 4 mg .ROUTE .STK-MED ONE Stop: 04/06/19 06:04 Ondansetron HCl (Zofran) Confirm Administered Dose 4 mg .ROUTE .STK-MED ONE Stop: 04/06/19 06:30 Ondansetron HCl (Zofran) 4 mg IVPUSH ONETIME PRN PRN Reason: Nausea/Vomiting Stop: 04/06/19 16:00 Propofol (Diprivan 20 Ml) Confirm Administered Dose 400 mg .ROUTE .STK-MED ONE Stop: 04/06/19 06:04 Propofol (Diprivan 20 Ml) Confirm Administered Dose 400 mg .ROUTE .STK-MED ONE Stop: 04/06/19 06:30 Sodium Chloride (Saline Flush) 10 ml FLUSH ASDIRECTED PRN PRN Reason: Keep Vein Open Stop: 04/06/19 18:00 Tranexamic Acid (Cyklokapron) Confirm Administered Dose 1,000 mg .ROUTE .STK- MED ONE Stop: 04/06/19 10:29 Triamcinolone Acetonide (Triamcinolone Acetonide 0.1% Crm) gm TOP ASDIRECTED PRN PRN Reason: ASDIRECTED Vancomycin HCl (Vancomycin) Confirm Administered Dose 1 gm .ROUTE .STK-MED ONE Stop: 04/06/19 10:30 - Exam Wound/Incisions: Dressing Dry and Intact General: Alert, Cooperative, No Acute Distress Lungs: Normal Respiratory Effort Extremities: Other (NVS intact for BLE. Mat's negative.) Sepsis Event Note - Evaluation Sepsis Screening Result: No Definite Risk - Focused Exam Vital Signs: Vital Signs Temp Pulse Resp BP Pulse Ox Pulse Ox 04/08/19 09:22 60 122/60 04/08/19 09:21 122/60 04/08/19 07:33 98.1 F 60 16 122/60 97 04/08/19 06:00 95 04/08/19 04:00 95 04/08/19 03:53 59 L 16 132/63 95 04/08/19 00:38 97.7 F 59 L 16 123/59 L 93 L Date Exam was Performed: 04/08/19 Time Exam was Performed: 10:26 - Problem List Review Problem List Initiated/Reviewed/Updated: Yes - My Orders Last 24 Hours: Active Orders 24 hr Category Date Time Status Regular Diet [DIET] Diet 04/07/19 Dinner Active Acetaminophen [Tylenol] Med 04/07/19 20:29 Active 650 mg PO Q4H PRN Linaclotide [Linzess] Med 04/08/19 10:00 Active 72 mcg PO ACLUNCH Rosuvastatin [Crestor] Med 04/07/19 21:00 Active 5 mg PO BEDTIME Sodium Chloride 0.9% [Normal Saline] 500 ml Med 04/07/19 16:15 Active IV .BOLUS Medication Orders Acetaminophen (Tylenol) 650 mg PO Q4H PRN PRN Reason: Pain/Fever Last Admin: 04/08/19 09:23 Dose: 650 mg Admin: 04/07/19 21:26 Dose: 650 mg Hydrocodone Bitart/Acetaminophen ([place] 325-5 Mg) 1 - 2 tab PO Q4H PRN PRN Reason: Pain Last Admin: 04/08/19 03:54 Dose: 1 tab Admin: 04/07/19 14:40 Dose: 1 tab Admin: 04/07/19 12:08 Dose: 1 tab Admin: 04/07/19 10:10 Dose: 1 tab Admin: 04/07/19 03:18 Dose: 2 tab Admin: 04/06/19 21:11 Dose: 1 tab Amlodipine Besylate (Norvasc) 10 mg PO DAILY [facility] Last Admin: 04/08/19 09:22 Dose: 10 mg Admin: 04/07/19 10:57 Dose: Apixaban (Eliquis) 5 mg PO BID [facility] Last Admin: 04/08/19 09:23 Dose: 5 mg Admin: 04/07/19 20:50 Dose: 5 mg Admin: 04/07/19 10:00 Dose: 5 mg Bisacodyl (Dulcolax) 5 mg PO DAILY PRN PRN Reason: Constipation Cholecalciferol (Vitamin D3) 5,000 unit PO DAILY [facility] Last Admin: 04/08/19 09:22 Dose: 5,000 unit Admin: 04/07/19 10:10 Dose: 5,000 unit Duloxetine HCl (Cymbalta) 20 mg PO DAILY [facility] Last Admin: 04/08/19 09:22 Dose: 20 mg Admin: 04/07/19 10:05 Dose: 20 mg Sodium Chloride (Normal Saline) 500 mls @ 999 mls/hr IV .BOLUS [facility] Last Admin: 04/07/19 16:22 Dose: 999 mls/hr Loratadine (Claritin) 10 mg PO DAILY [facility] Last Admin: 04/08/19 09:22 Dose: 10 mg Admin: 04/07/19 10:00 Dose: 10 mg Losartan Potassium (Cozaar) 50 mg PO QAM [facility] Last Admin: 04/08/19 09:21 Dose: 50 mg Admin: 04/07/19 10:56 Dose: Magnesium Hydroxide (Milk Of Magnesia) 30 ml PO BID PRN PRN Reason: Constipation Metoprolol Tartrate (Lopressor) 100 mg PO BID [facility] Last Admin: 04/08/19 09:22 Dose: 100 mg Admin: 04/07/19 20:50 Dose: 100 mg Admin: 04/07/19 10:53 Dose: 100 mg Admin: 04/06/19 21:10 Dose: 100 mg Morphine Sulfate (Morphine) 2 mg IVPUSH Q2H PRN PRN Reason: Breakthrough Pain Naloxone HCl (Narcan) 0.1 mg IVPUSH Q5M PRN PRN Reason: Oversedation Ketotifen Fumarate (Drops Ptom) 1 drop EYEBOTH BID PRN PRN Reason: ITCHY EYES Linaclotide [Linzess ] 72 Mcg Pt's Own Medication 72 mcg PO ACLUNCH [facility] Last Admin: 04/08/19 09:25 Dose: Sodium Chloride 1, (000 Mg Tab Ptom) 1,000 mg PO BID [facility] Last Admin: 04/08/19 09:25 Dose: Admin: 04/07/19 20:53 Dose: Admin: 04/07/19 10:10 Dose: Admin: 04/06/19 22:31 Dose: Ondansetron HCl (Zofran) 4 mg IVPUSH Q6H PRN PRN Reason: Nausea/Vomiting Pantoprazole Sodium (Protonix) 40 mg PO DAILY [facility] Last Admin: 04/08/19 09:22 Dose: 40 mg Admin: 04/07/19 10:00 Dose: 40 mg Rosuvastatin Calcium (Crestor) 5 mg PO BEDTIME [facility] Last Admin: 04/07/19 20:52 Dose: 5 mg Senna (Senna) 8.6 mg PO BID PRN PRN Reason: Constipation Last Admin: 04/08/19 03:54 Dose: 8.6 mg Senna/Docusate Sodium (Senna Plus) 2 tab PO BEDTIME [facility] Last Admin: 04/07/19 20:50 Dose: 2 tab Admin: 04/06/19 21:11 Dose: 2 tab - Assessment Assessment (Free Text/Narrative):: POD#2 - left FABI - Plan Plan (Free Text/Narrative):: 1. Medical management per Hospitalist service. 2. Suspect d/c to [facility] upon acceptance. 3. Continue with PT and OT and progress as tolerated. WBAT. 4. Eliquis BID, frequent mobility, TEDs. The pt's case was discussed with Dr. Corbin today.
[2019-04-08] MEDS: Sodium Chloride/Potassium Chloride Tab PO SCH ×3 (14:04→23:25)
[2019-04-08] MEDS: Lactulose Soln 10 GM/15 ML 30 ML UD Cup PO SCH ×2 (18:01→23:26)
[2019-04-08] MEDS: Rosuvastatin 10 MG Tab PO SCH ×2 (19:53→23:25)
[2019-04-08] MEDS ORDERED: Sennosides 8.6 MG Tab PO SCH (21:00)
[2019-04-08] MEDS ORDERED: Bisacodyl 10 MG Supp RECTAL PRN (21:22)
[2019-04-09] MEDS: Acetaminophen 325 MG Tab PO PRN ×2 (00:20→04:36)
[2019-04-09] MEDS: Lactulose Soln 10 GM/15 ML 30 ML UD Cup PO SCH (04:42)
--- NOTE | 2019-04-09 07:37 | PCM.CONSN ---
- General Info Date of Service: 04/09/19 Admission Dx/Problem (Free Text): Admission Diagnosis/Problem Admission Diagnosis/Problem Osteoarthritis of hip Functional Status: Reports: Pain Controlled, Tolerating Diet, Ambulating, Urinating, Incentive Spirometry. Denies: New Symptoms - Review of Systems General: Reports: No Symptoms. Denies: Fever, Chills HEENT: Reports: No Symptoms. Denies: Headaches, Sore Throat Pulmonary: Reports: No Symptoms. Denies: Shortness of Breath, Cough, Sputum, Wheezing Cardiovascular: Reports: No Symptoms. Denies: Chest Pain, Palpitations, Dyspnea on Exertion Gastrointestinal: Reports: Abdominal Pain (improved LUQ ). Denies: Constipation , Diarrhea, Nausea, Vomiting Genitourinary: Reports: No Symptoms. Denies: Pain Musculoskeletal: Reports: Leg Pain Skin: Reports: No Symptoms. Denies: Cyanosis Neurological: Reports: Difficulty Walking, Weakness, Gait Disturbance. Denies: Confusion Psychiatric: Reports: No Symptoms - Patient Data Vitals - Most Recent: Last Vital Signs Temp 97.5 F 04/09/19 04:35 Pulse 63 04/09/19 04:35 Resp 18 04/09/19 04:35 BP 133/48 L 04/09/19 04:35 Pulse Ox 98 04/09/19 04:35 Weight - Most Recent: 142 lb 8 oz I&O - Last 24 Hours: Intake & Output 04/08/19 04/09/19 04/09/19 22:59 06:59 14:59 Intake Total 1200 400 Output Total 200 475 Balance 1000 -75 Lab Results Last 24 Hours: Laboratory Results - last 24 hr 04/08/19 Range/Units 05:07 Manual Slide Review Abnormal smear Med Orders - Current: Current Medications Acetaminophen (Tylenol) 650 mg PO Q4H PRN PRN Reason: Pain/Fever Last Admin: 04/09/19 04:36 Dose: 650 mg Hydrocodone Bitart/Acetaminophen ([place] 325-5 Mg) 1 - 2 tab PO Q4H PRN PRN Reason: Pain Last Admin: 04/08/19 03:54 Dose: 1 tab Amlodipine Besylate (Norvasc) 10 mg PO DAILY [facility] Last Admin: 04/08/19 09:22 Dose: 10 mg Apixaban (Eliquis) 5 mg PO BID [facility] Last Admin: 04/08/19 23:25 Dose: Not Given Bisacodyl (Dulcolax) 5 mg PO DAILY PRN PRN Reason: Constipation Last Admin: 04/08/19 14:04 Dose: 5 mg Bisacodyl (Dulcolax) 10 mg RECTAL DAILY PRN PRN Reason: Constipation Cholecalciferol (Vitamin D3) 5,000 unit PO DAILY [facility] Last Admin: 04/08/19 09:22 Dose: 5,000 unit Duloxetine HCl (Cymbalta) 20 mg PO DAILY [facility] Last Admin: 04/08/19 09:22 Dose: 20 mg Sodium Chloride (Normal Saline) 500 mls @ 999 mls/hr IV .BOLUS [facility] Last Admin: 04/07/19 16:22 Dose: 999 mls/hr Loratadine (Claritin) 10 mg PO DAILY [facility] Last Admin: 04/08/19 09:22 Dose: 10 mg Losartan Potassium (Cozaar) 50 mg PO QAM [facility] Last Admin: 04/08/19 09:21 Dose: 50 mg Magnesium Hydroxide (Milk Of Magnesia) 30 ml PO BID PRN PRN Reason: Constipation Metoprolol Tartrate (Lopressor) 100 mg PO BID [facility] Last Admin: 04/08/19 23:25 Dose: Not Given Morphine Sulfate (Morphine) 2 mg IVPUSH Q2H PRN PRN Reason: Breakthrough Pain Naloxone HCl (Narcan) 0.1 mg IVPUSH Q5M PRN PRN Reason: Oversedation Ketotifen Fumarate (Drops Ptom) 1 drop EYEBOTH BID PRN PRN Reason: ITCHY EYES Linaclotide [Linzess ] 72 Mcg Pt's Own Medication 72 mcg PO ACLUNCH [facility] Last Admin: 04/08/19 09:25 Dose: Not Given Ondansetron HCl (Zofran) 4 mg IVPUSH Q6H PRN PRN Reason: Nausea/Vomiting Oral Electrolytes (Thermotabs) 1 each PO BID [facility] Last Admin: 04/08/19 23:25 Dose: Not Given Pantoprazole Sodium (Protonix) 40 mg PO DAILY [facility] Last Admin: 04/08/19 09:22 Dose: 40 mg Rosuvastatin Calcium (Crestor) 5 mg PO BEDTIME [facility] Last Admin: 04/08/19 23:25 Dose: Not Given Senna (Senna) 8.6 mg PO BID PRN PRN Reason: Constipation Last Admin: 04/08/19 03:54 Dose: 8.6 mg Senna/Docusate Sodium (Senna Plus) 2 tab PO BEDTIME [facility] Last Admin: 04/08/19 23:25 Dose: Not Given Discontinued Medications Bupivacaine HCl (Sensorcaine-Mpf 0.25%) Confirm Administered Dose 30 ml .ROUTE .STK-MED ONE Stop: 04/06/19 10:30 Cefazolin Sodium (Ancef) Confirm Administered Dose 2 gm .ROUTE .STK-MED ONE Stop: 04/06/19 06:04 Cefazolin Sodium (Ancef) Confirm Administered Dose 2 gm .ROUTE .STK-MED ONE Stop: 04/06/19 06:30 Cefazolin Sodium (Ancef) Confirm Administered Dose 2 gm .ROUTE .STK-MED ONE Stop: 04/06/19 10:30 Morphine Sulfate 8 mg/Epinephrine HCl 0.3 mg/Cefuroxime Sodium 750 mg/Ketorolac Tromethamine 30 mg/Sodium Chloride 7.9 ml 0 mg .XX ASDIRECTED PRN PRN Reason: Pain Stop: 04/06/19 14:00 Diphenhydramine HCl (Benadryl) 25 mg IVPUSH Q6H PRN PRN Reason: pruritis Stop: 04/06/19 15:00 Duloxetine HCl (Cymbalta) 20 mg PO DAILY [facility] Ephedrine Sulfate (Ephedrine 25 Mg/5 Ml Syringe) Confirm Administered Dose 25 mg IV .STK-MED ONE Stop: 04/06/19 12:29 Ephedrine Sulfate (Ephedrine Sulfate) 5 mg IVPUSH ASDIRECTED PRN PRN Reason: Hypotension Stop: 04/06/19 16:00 Famotidine (Pepcid) 20 mg PO Q12H [facility] Fentanyl (Sublimaze) Confirm Administered Dose 100 mcg .ROUTE .STK-MED ONE Stop: 04/06/19 06:04 Fentanyl (Sublimaze) Confirm Administered Dose 100 mcg .ROUTE .STK-MED ONE Stop: 04/06/19 06:30 Fentanyl (Sublimaze) 50 mcg IVPUSH Q5M PRN PRN Reason: Pain Stop: 04/06/19 15:00 Fluticasone Propionate (Flonase) 0 gm NASBOTH BID PRN PRN Reason: as directed Hydromorphone HCl (Dilaudid) 0.5 mg IVPUSH Q15M PRN PRN Reason: Pain (severe 7-10) Stop: 04/06/19 15:00 Lactated Ringer's (Ringers, Lactated) 1,000 mls @ 125 mls/hr IV ASDIRECTED [facility] Stop: 04/06/19 23:00 Last Admin: 04/06/19 10:13 Dose: 125 mls/hr Lidocaine HCl (Xylocaine-Mpf 1%) Confirm Administered Dose 0 mls @ as directed .ROUTE .STK-MED ONE Stop: 04/06/19 06:04 Lactated Ringer's (Ringers, Lactated) Confirm Administered Dose 0 mls @ as directed .ROUTE .STK-MED ONE Stop: 04/06/19 06:04 Lactated Ringer's (Ringers, Lactated) Confirm Administered Dose 1,000 mls @ as directed .ROUTE .STK-MED ONE Stop: 04/06/19 06:29 Lidocaine HCl (Xylocaine-Mpf 1%) Confirm Administered Dose 6 mls @ as directed .ROUTE .STK-MED ONE Stop: 04/06/19 06:30 Cefazolin Sodium/Dextrose 2 gm (/ Premix) 50 mls @ 100 mls/hr IV Q8H [facility] Stop: 04/07/19 07:29 Last Admin: 04/07/19 03:21 Dose: Not Given Lactated Ringer's (Ringers, Lactated) Confirm Administered Dose 1,000 mls @ as directed .ROUTE .STK-MED ONE Stop: 04/06/19 12:25 Phenylephrine HCl 1 mg/ Sodium (Chloride) 10.1 mls @ 1 mls/sec IV TITRATE [facility]; Protocol Stop: 04/06/19 16:00 Cefazolin Sodium/Dextrose 2 gm (/ Premix) 50 mls @ 100 mls/hr IV Q8H [facility] Stop: 04/07/19 11:29 Last Admin: 04/07/19 10:13 Dose: 100 mls/hr Magnesium Sulfate 2 gm/ Premix 50 mls @ 25 mls/hr IV ONETIME ONE Stop: 04/08/19 08:59 Last Admin: 04/08/19 07:34 Dose: 25 mls/hr Iodine (Iodine 2% Mild Tincture) Confirm Administered Dose 30 ml .ROUTE .STK- MED ONE Stop: 04/06/19 10:30 Ketamine HCl (Ketalar) Confirm Administered Dose 500 mg .ROUTE .STK-MED ONE Stop: 04/06/19 06:05 Ketamine HCl (Ketalar) Confirm Administered Dose 500 mg .ROUTE .STK-MED ONE Stop: 04/06/19 06:31 Ketorolac Tromethamine (Toradol) Confirm Administered Dose 30 mg .ROUTE .STK- MED ONE Stop: 04/06/19 06:04 Lactulose (Cephulac) 10 gm PO Q6H [facility] Last Admin: 04/09/19 04:42 Dose: Not Given Lidocaine/Sodium Bicarbonate (Buffered Lidocaine 1% In Ns 8.4%) 0.25 ml IDERM ONETIME PRN PRN Reason: Prior to IV Start Stop: 04/06/19 18:00 Last Admin: 04/06/19 10:13 Dose: 0.25 ml Midazolam HCl (Versed 1 Mg/Ml) Confirm Administered Dose 2 mg .ROUTE .STK-MED ONE Stop: 04/06/19 06:04 Midazolam HCl (Versed 1 Mg/Ml) Confirm Administered Dose 2 mg .ROUTE .STK-MED ONE Stop: 04/06/19 06:31 Miscellaneous Medication (Phenylephrine 1 Mg/10 Ml-Ns) Confirm Administered Dose 1 mg IV .STK-MED ONE Stop: 04/06/19 06:04 Miscellaneous Medication (Phenylephrine 1 Mg/10 Ml-Ns) Confirm Administered Dose 1 mg IV .STK-MED ONE Stop: 04/06/19 06:30 Sodium Chloride 1, (000 Mg Tab Ptom) 1,000 mg PO BID [facility] Last Admin: 04/08/19 09:25 Dose: Not Given Ondansetron HCl (Zofran) Confirm Administered Dose 4 mg .ROUTE .STK-MED ONE Stop: 04/06/19 06:04 Ondansetron HCl (Zofran) Confirm Administered Dose 4 mg .ROUTE .STK-MED ONE Stop: 04/06/19 06:30 Ondansetron HCl (Zofran) 4 mg IVPUSH ONETIME PRN PRN Reason: Nausea/Vomiting Stop: 04/06/19 16:00 Propofol (Diprivan 20 Ml) Confirm Administered Dose 400 mg .ROUTE .STK-MED ONE Stop: 04/06/19 06:04 Propofol (Diprivan 20 Ml) Confirm Administered Dose 400 mg .ROUTE .STK-MED ONE Stop: 04/06/19 06:30 Senna (Senna) 8.6 mg PO BID [facility] Sodium Chloride (Saline Flush) 10 ml FLUSH ASDIRECTED PRN PRN Reason: Keep Vein Open Stop: 04/06/19 18:00 Tranexamic Acid (Cyklokapron) Confirm Administered Dose 1,000 mg .ROUTE .STK- MED ONE Stop: 04/06/19 10:29 Triamcinolone Acetonide (Triamcinolone Acetonide 0.1% Crm) gm TOP ASDIRECTED PRN PRN Reason: ASDIRECTED Vancomycin HCl (Vancomycin) Confirm Administered Dose 1 gm .ROUTE .STK-MED ONE Stop: 04/06/19 10:30 - Exam Quality Assessment: DVT Prophylaxis. No: Supplemental Oxygen, Urine Catheter General: Alert, Oriented, Cooperative, No Acute Distress HEENT: Pupils Equal, Pupils Reactive, Mucous Membr. Moist/[place] Neck: Supple, Trachea Midline Lungs: Clear to Auscultation, Normal Respiratory Effort Cardiovascular: Regular Rate, Regular Rhythm GI/Abdominal Exam: Normal Bowel Sounds, Soft, Non-Tender, No Distention (Female) Exam: Deferred Back Exam: Normal Inspection Extremities: Normal Capillary Refill, Leg Pain, Limited Range of Motion, Other ( Bandage in place on right leg. Bandage is dry and intact. ) Peripheral Pulses: 2+: Radial (L), Radial (R), Dorsalis Pedis (L), Dorsalis Pedis (R) Skin: Warm, Dry, Intact Neurological: No New Focal Deficit Psy/Mental Status: Alert, Normal Affect, Normal Mood Sepsis Event Note - Evaluation Sepsis Screening Result: No Definite Risk - Focused Exam Vital Signs: Vital Signs Temp Pulse Resp BP Pulse Ox 04/09/19 04:35 97.5 F 63 18 133/48 L 98 04/08/19 23:59 97.5 F 65 18 123/67 95 04/08/19 19:51 63 113/45 L 04/08/19 19:46 98.2 F 59 L 18 118/45 L 96 Date Exam was Performed: 04/09/19 Time Exam was Performed: 14:24 Consult PN Assessment/Plan POD#: 3 Procedures: Procedures AGENT NOS ASSAY W/OPTIC (08/27/14) ASSAY OF AMYLASE (07/25/13) ASSAY OF BLOOD/URIC ACID (07/10/16) ASSAY OF CK (CPK) (07/31/17) ASSAY OF LIPASE (03/06/17) ASSAY OF MAGNESIUM (12/19/17) ASSAY OF NATRIURETIC PEPTIDE (05/02/18) ASSAY OF PREALBUMIN (03/25/19) ASSAY OF TROPONIN QUANT (05/17/18) ASSAY OF URINE OSMOLALITY (04/21/14) ASSAY OF URINE SODIUM (04/21/14) ASSAY THYROID STIM HORMONE (05/02/18) BL SMEAR W/DIFF WBC COUNT (12/19/17) BLOOD CULTURE FOR BACTERIA (08/27/14) C-REACTIVE PROTEIN (05/17/18) CHEST X-RAY 2VW FRONTAL&LATL (08/31/14) COMPLETE CBC AUTOMATED (11/19/18) COMPLETE CBC W/AUTO DIFF WBC (05/17/18) COMPREHEN METABOLIC PANEL (03/25/19) CONTRST X-RAY UPPR GI TRACT (03/15/17) CREATINE MB FRACTION (08/27/14) CT ABD & PELV 1/> REGNS (04/29/14) CT ABD & PELV W/CONTRAST (01/31/16) CT ABD & PELVIS W/O CONTRAST (07/15/13) CT ANGIOGRAPHY CHEST (08/27/14) CT CHEST SPINE W/O DYE (12/19/17) CT HEAD/BRAIN W/O DYE (08/27/14) CT THORAX W/O DYE (09/29/18) CULTURE OTHR SPECIMN AEROBIC (05/07/18) DRAIN/INJ JOINT/BURSA W/O US (01/13/19) DXA BONE DENSITY AXIAL (03/27/19) ELECTROCARDIOGRAM TRACING (05/17/18) EMERGENCY DEPT VISIT (05/17/18) EMERGENCY DEPT VISIT (08/27/14) EMERGENCY DEPT VISIT (09/26/13) EVALUATE PT USE OF INHALER (08/31/14) FIBRIN DEGRADATION QUANT (08/27/14) GLYCOSYLATED HEMOGLOBIN TEST (03/25/19) HPYLORI STOOL IA (02/01/16) HYDRATE IV INFUSION ADD-ON (05/17/18) LIPID PANEL (09/12/18) MEASURE BLOOD OXYGEN LEVEL (08/27/14) METABOLIC PANEL TOTAL CA (07/12/16) MICROBE SUSCEPTIBLE HAYLEE (05/27/17) MR-STAPH DNA AMP PROBE (01/06/18) PERQ VERTEBRAL AUGMENTATION (01/14/18) POLYSOM 6/> YRS 4/> YAN (09/04/16) PROTHROMBIN TIME (03/25/19) RBC SED RATE AUTOMATED (04/13/16) RENAL FUNCTION PANEL (11/03/14) ROUTINE VENIPUNCTURE (05/17/18) SMEAR GRAM STAIN (05/07/18) THER/PROPH/DIAG INJ IV PUSH (05/17/18) THER/PROPH/DIAG IV INF ADDON (08/27/14) THER/PROPH/DIAG IV INF INIT (08/27/14) THROMBOPLASTIN TIME PARTIAL (03/25/19) TRANSVAGINAL US NON-OB (04/19/16) TX/PRO/DX INJ NEW DRUG ADDON (08/27/14) UR ALBUMIN SEMIQUANTITATIVE (07/01/15) URINALYSIS AUTO W/SCOPE (05/17/18) URINE BACTERIA CULTURE (05/27/17) URINE CULTURE/COLONY COUNT (02/02/19) US EXAM ABDO BACK WALL COMP (11/04/17) US EXAM ABDOM COMPLETE (12/17/13) US EXAM PELVIC COMPLETE (12/17/13) VITAMIN B-12 (06/25/18) VITAMIN D 25 HYDROXY (06/25/18) X-RAY EXAM ABDOMEN 2 VIEWS (05/14/18) X-RAY EXAM CHEST 1 VIEW (12/18/17) X-RAY EXAM CHEST 2 VIEWS (03/25/19) X-RAY EXAM KNEE 4 OR MORE (12/16/15) X-RAY EXAM L-S SPINE 2/3 VWS (11/01/16) X-RAY EXAM OF ABDOMEN (07/25/13) X-RAY EXAM OF ABDOMEN (07/10/13) X-RAY EXAM OF TOE(S) (07/12/16) X-RAY EXAM THORAC SPINE 2VWS (03/26/18) (1) Paroxysmal A-fib SNOMED Code(s): 732602465 Code(s): I48.0 - PAROXYSMAL ATRIAL FIBRILLATION Priority: Medium (2) HTN (hypertension) SNOMED Code(s): 64562538 Code(s): I10 - ESSENTIAL (PRIMARY) HYPERTENSION Priority: Medium Qualifiers: Hypertension type: unspecified Qualified Code(s): I10 - Essential (primary ) hypertension (3) HLD (hyperlipidemia) SNOMED Code(s): 41480927 Code(s): E78.5 - HYPERLIPIDEMIA, UNSPECIFIED Priority: Low Qualifiers: Hyperlipidemia type: unspecified Qualified Code(s): E78.5 - Hyperlipidemia , unspecified (4) Pacemaker SNOMED Code(s): 819623749 Code(s): Z95.0 - PRESENCE OF CARDIAC PACEMAKER Priority: Medium (5) Chronic anticoagulation SNOMED Code(s): 484252332 Code(s): Z79.01 - LONGTERM (CURRENT) USE OF ANTICOAGULANTS Priority: Medium (6) GERD (gastroesophageal reflux disease) SNOMED Code(s): 498018868 Code(s): K21.9 - GASTRO-ESOPHAGEAL REFLUX DISEASE WITHOUT ESOPHAGITIS Priority: Low Qualifiers: Esophagitis presence: esophagitis presence not specified Qualified Code(s) : K21.9 - Gastro-esophageal reflux disease without esophagitis (7) Polymyalgia rheumatica SNOMED Code(s): 72004037 Code(s): M35.3 - POLYMYALGIA RHEUMATICA Priority: Low (8) COPD (chronic obstructive pulmonary disease) SNOMED Code(s): 84927363 Code(s): J44.9 - CHRONIC OBSTRUCTIVE PULMONARY DISEASE, UNSPECIFIED Priority: Medium Qualifiers: COPD type: unspecified COPD Qualified Code(s): J44.9 - Chronic obstructive pulmonary disease, unspecified (9) History of subdural hematoma (post traumatic) SNOMED Code(s): 488247722, 215948327 Code(s): Z87.828 - PERSONAL HISTORY OF OTH (HEALED) PHYSICAL INJURY AND TRAUMA Priority: Low (10) Anxiety SNOMED Code(s): 85758520 Code(s): F41.9 - ANXIETY DISORDER, UNSPECIFIED Priority: Low (11) Arthritis SNOMED Code(s): 1596744 Code(s): M19.90 - UNSPECIFIED OSTEOARTHRITIS, UNSPECIFIED SITE Priority: Medium (12) Cardiomegaly SNOMED Code(s): 3920562 Code(s): I51.7 - CARDIOMEGALY Priority: Medium (13) Chronic cough SNOMED Code(s): 91078163 Code(s): R05 - COUGH Priority: Low (14) Depression SNOMED Code(s): 86526834 Code(s): F32.9 - MAJOR DEPRESSIVE DISORDER, SINGLE EPISODE, UNSPECIFIED Priority: Low Qualifiers: Depression Type: unspecified Qualified Code(s): F32.9 - Major depressive disorder, single episode, unspecified (15) Diastolic dysfunction SNOMED Code(s): 5057655 Code(s): I51.89 - OTHER ILL-DEFINED HEART DISEASES (16) Diverticulosis SNOMED Code(s): 489559078 Code(s): K57.90 - DVRTCLOS OF INTEST, PART UNSP, W/O PERF OR ABSCESS W/O BLEED Priority: Low (17) Dizzy spells SNOMED Code(s): 844231317 Code(s): R42 - DIZZINESS AND GIDDINESS Priority: Low (18) Edema SNOMED Code(s): 281060809, 603907780 Code(s): R60.9 - EDEMA, UNSPECIFIED Priority: Low Qualifiers: Edema type: unspecified Qualified Code(s): R60.9 - Edema, unspecified (19) Elevated fasting glucose SNOMED Code(s): 23031359 Code(s): R73.01 - IMPAIRED FASTING GLUCOSE Priority: Low (20) Hiatal hernia SNOMED Code(s): 53118300 Code(s): K44.9 - DIAPHRAGMATIC HERNIA WITHOUT OBSTRUCTION OR GANGRENE Priority: Low (21) IBS (irritable bowel syndrome) SNOMED Code(s): 68426790 Code(s): K58.9 - IRRITABLE BOWEL SYNDROME WITHOUT DIARRHEA Priority: Low Qualifiers: Irritable bowel syndrome type: unspecified Qualified Code(s): K58.9 - Irritable bowel syndrome without diarrhea (22) Insomnia SNOMED Code(s): 552794087 Code(s): G47.00 - INSOMNIA, UNSPECIFIED Priority: Low Qualifiers: Insomnia type: unspecified Qualified Code(s): G47.00 - Insomnia, unspecified (23) Mitral valve prolapse SNOMED Code(s): 323703527 Code(s): I34.1 - NONRHEUMATIC MITRAL (VALVE) PROLAPSE Priority: Medium (24) Mitral regurgitation SNOMED Code(s): 50302329 Code(s): I34.0 - NONRHEUMATIC MITRAL (VALVE) INSUFFICIENCY Priority: Medium Qualifiers: Cardiac valve disease etiology: etiology unspecified Qualified Code(s): I34.0 - Nonrheumatic mitral (valve) insufficiency (25) Overactive bladder SNOMED Code(s): 073578428 Code(s): N32.81 - OVERACTIVE BLADDER Priority: Low (26) Osteoporosis SNOMED Code(s): 98807273 Code(s): M81.0 - AGE-RELATED OSTEOPOROSIS W/O CURRENT PATHOLOGICAL FRACTURE Priority: High Qualifiers: Osteoporosis type: unspecified Presence of current pathological fracture: unspecified Qualified Code(s): M81.0 - Age-related osteoporosis without current pathological fracture (27) Peripheral sensory neuropathy SNOMED Code(s): 39168705 Code(s): G62.9 - POLYNEUROPATHY, UNSPECIFIED Priority: Medium (28) Recurrent UTI SNOMED Code(s): 269558822 Code(s): N39.0 - URINARY TRACT INFECTION, SITE NOT SPECIFIED Priority: Low (29) SIADH (syndrome of inappropriate ADH production) SNOMED Code(s): 65491079 Code(s): E22.2 - SYNDROME OF INAPPROPRIATE SECRETION OF ANTIDIURETIC HORMONE Priority: Medium (30) Small intestine disorder SNOMED Code(s): 483533764 Code(s): K63.9 - DISEASE OF INTESTINE, UNSPECIFIED Priority: Medium (31) Sick sinus syndrome SNOMED Code(s): 94291910 Code(s): I49.5 - SICK SINUS SYNDROME Priority: Medium (32) Trigeminal neuralgia SNOMED Code(s): 76315256 Code(s): G50.0 - TRIGEMINAL NEURALGIA Priority: Medium (33) Umbilical hernia SNOMED Code(s): 827889529 Code(s): K42.9 - UMBILICAL HERNIA WITHOUT OBSTRUCTION OR GANGRENE Priority : Low Qualifiers: Obstruction and gangrene presence: without obstruction or gangrene Qualified Code(s): K42.9 - Umbilical hernia without obstruction or gangrene (34) Headache SNOMED Code(s): 71837041 Code(s): R51 - HEADACHE Priority: Low Qualifiers: Headache type: unspecified Headache chronicity pattern: unspecified pattern Intractability: not intractable Qualified Code(s): R51 - Headache (35) Hyponatremia SNOMED Code(s): 80593172 Code(s): E87.1 - HYPO-OSMOLALITY AND HYPONATREMIA Priority: Low (36) TMJ, Temporomandibular gyqxn-crfa-lkhgcsctfll syndrome, Myofascial Pain SNOMED Code(s): 818505113 Code(s): M26.62 - ARTHRALGIA OF TEMPOROMANDIBULAR JOINT * DO NOT USE * Priority: Low (37) S/P total hip arthroplasty SNOMED Code(s): 034730204642, 846901275482 Code(s): Z96.649 - PRESENCE OF UNSPECIFIED ARTIFICIAL HIP JOINT Priority: High Qualifiers: Laterality: left Qualified Code(s): Z96.642 - Presence of left artificial hip joint (38) Osteoarthritis SNOMED Code(s): 863254583 Code(s): M19.90 - UNSPECIFIED OSTEOARTHRITIS, UNSPECIFIED SITE Priority: High Qualifiers: Osteoarthritis location: hip Osteoarthritis type: primary Laterality: left Qualified Code(s): M16.12 - Unilateral primary osteoarthritis, left hip (39) Anemia SNOMED Code(s): 678134263 Code(s): D64.9 - ANEMIA, UNSPECIFIED Priority: Medium Qualifiers: Anemia type: unspecified type Qualified Code(s): D64.9 - Anemia, unspecified (40) Cervical stenosis of spine Priority: Low (41) Hemorrhoids SNOMED Code(s): 51658388 Code(s): K64.9 - UNSPECIFIED HEMORRHOIDS Priority: Low Qualifiers: Hemorrhoid type: unspecified Qualified Code(s): K64.9 - Unspecified hemorrhoids (42) Migraines SNOMED Code(s): 49006896 Code(s): G43.909 - MIGRAINE, UNSP, NOT INTRACTABLE, WITHOUT STATUS MIGRAINOSUS Priority: Low Qualifiers: Migraine type: unspecified Status migrainosus presence: without status migrainosus Intractability: not intractable Qualified Code(s): G43.909 - Migraine, unspecified, not intractable, without status migrainosus (43) Vitamin D deficiency SNOMED Code(s): 87125336 Code(s): E55.9 - VITAMIN D DEFICIENCY, UNSPECIFIED Priority: Low (44) Seborrheic keratoses SNOMED Code(s): 746951540 Code(s): L82.1 - OTHER SEBORRHEIC KERATOSIS Priority: Low (45) Notalgia paresthetica SNOMED Code(s): 925991172 Code(s): R20.2 - PARESTHESIA OF SKIN Priority: Low (46) Hypomagnesemia SNOMED Code(s): 724093045 Code(s): E83.42 - HYPOMAGNESEMIA Priority: High Problem List Initiated/Reviewed/Updated: Yes My Orders Last 24 Hours: My Active Orders 04/08/19 11:45 Sodium Chloride/KCl [Thermotabs] 1 each PO BID 04/08/19 14:05 Abdomen 1V Upright [CR] Routine Plan: I/P: Acute: S/P left total hip arthroplasty - post-operative day 3 -DVT prophylaxis and pain management per primary care team -PT/OT -IS/RT -Monitor oxygen saturation -Titrate oxygen as needed -Home medications reviewed -Vital signs stable -Monitor labs -Pre-operative Hgb was 13.3; Now 12.3-->11.1-->11.2 -Pre-operative GFR was >60; Now greater than 60 -Pre-operative Cl was 96; Now 97-->96-->93 -Pre-operative Na was 134; Now 133-->132-->130 -Pre-operative A1C was 6.90% Osteoarthritis of left hip -Pain management per primary care team Hypomagnesemia -Magnesium 1.4-->1.8 -Supplement Hyponatremia -Acute on chronic -Sodium as above -Family has not brought home medications in -Started BID thermotabs until discharge LUQ abdominal pain, improved -Reports worse yesterday -Has been getting worse -Abdominal x-ray obtained and shows gas and stool in colon -Has been given Colace and Dulcolax -Start 10mg Q6hr lactulose until BM -Multiple BMs yesterday night Chronic: Paroxysmal A-Fib HTN HLD Pacemaker Chronic anticoagulation GERD Polymyalgia Rheumatica COPD Hx/o subdural hematoma 2/2 a fall Anxiety Arthritis Cardiomegaly Depression CHF with diastolic dysfunction Diverticulosis Dizzy spells Edema Elevated fasting glucose Headache Hiatal hernia Hyponatremia IBS Insomnia Mitral valve prolapse with mitral regurgitation Overactive bladder Osteoporosis Peripheral sensory neuropathy Recurrent UTIs SIADH Small intestine disorder Sick sinus syndrome TMJ Trigeminal neuralgia Umbilical hernia Notalgia paresthetica Cervical stenosis Vitamin D deficiency Anemia Migraines Plan: Telemetry CM/SW for discharge planning GI prophylaxis Home medications as indicated Other orders as listed above Routine AM labs Will require SNF placement at discharge. She is a full code. Her PCP is Jennifer Hayes PA-C From a hospitalist standpoint Shae has been doing pretty well. Her labs and vital signs have been stable and she has been up working with therapies. They are recommending SNF placement. She is off of oxygen and has urinated. Pain has been controlled. She was complaining of abdominal pain yesterday and abdominal x -ray revealed stool and gas in the colon. She was started on lactulose and had several BMs, which improved the pain. She had been getting Colace and Dulcolax with no results. She has been accepted at [facility] in [place] and did have her 3 day stay while here. Magnesium was low and was supplemented. She is cleared for discharge pending primary team and PT/OT agreement. Thank you for allowing us to participate in the care of this patient!!
[2019-04-09 08:16] VITALS: BP 131/43; PULSE 62
[2019-04-09] MEDS: Apixaban 5 MG Tab PO SCH (08:21)
[2019-04-09] MEDS: Loratadine 10 MG Tab PO SCH (08:21)
[2019-04-09] MEDS: Sodium Chloride/Potassium Chloride Tab PO SCH (08:21)
[2019-04-09] MEDS: DULoxetine 20 MG Cap PO SCH (08:22)
[2019-04-09] MEDS: amLODIPine 10 MG Tab PO SCH (08:22)
[2019-04-09] MEDS: Pantoprazole 40 MG Tab.CR PO SCH (08:22)
[2019-04-09] MEDS: Metoprolol Tartrate 100 MG Tab PO SCH (08:22)
[2019-04-09] MEDS: Losartan 100 MG Tab PO SCH (08:22)
[2019-04-09] MEDS: Cholecalciferol (Vitamin D3) 5,000 UNIT Tab PO SCH (08:22)
--- NOTE | 2019-04-09 09:38 | CR ---
Abdomen: Upright view of the abdomen was obtained. Comparison: Prior abdominal x-ray of 05/14/18. Gas is noted within portions of the colon which appear within normal limits. Bilateral hip prosthesis are noted. Mild vascular calcification is seen. No abnormal calcifications or other abnormality is appreciated. Impression: 1. Nothing acute is appreciated on upright abdominal x-ray. Diagnostic code #2 This report was dictated in [place] [employer] Time
--- NOTE | 2019-04-09 13:39 | PCM.SURGPN ---
- General Info Date of Service: 04/09/19 POD#: 3 Functional Status: Reports: Pain Controlled, Tolerating Diet, Ambulating, Urinating, Incentive Spirometry - Patient Data Vitals - Most Recent: Last Vital Signs Temp 97.9 F 04/09/19 08:51 Pulse 62 04/09/19 08:22 Resp 20 04/09/19 08:00 BP 131/43 L 04/09/19 08:22 Pulse Ox 92 L 04/09/19 08:00 Weight - Most Recent: 142 lb 8 oz I&O - Last 24 Hours: Intake & Output 04/08/19 04/09/19 04/09/19 22:59 06:59 14:59 Intake Total 1200 400 120 Output Total 200 475 Balance 1000 -75 120 Lab Results Last 24 Hrs: Laboratory Results - last 24 hr 04/09/19 04/09/19 Range/Units 07:40 07:40 WBC 12.07 H (3.98-10.04) K/mm3 RBC 3.34 L (3.98-5.22) M/mm3 Hgb 11.2 (11.2-15.7) gm/dl Hct 34.5 (34.1-44.9) % MCV 103.3 H (79.4-94.8) fl MCH 33.5 H (25.6-32.2) pg MCHC 32.5 (32.2-35.5) g/dl RDW Std Deviation 46.5 H (36.4-46.3) fL Plt Count 216 (182-369) K/mm3 MPV 9.8 (9.4-12.3) fl Neut % (Auto) 85.7 H (34.0-71.1) % Lymph % (Auto) 6.5 L (19.3-51.7) % [place] % (Auto) 7.2 (4.7-12.5) % Eos % (Auto) 0.3 L (0.7-5.8) Baso % (Auto) 0.1 (0.1-1.2) % Neut # (Auto) 10.35 H (1.56-6.13) K/mm3 Lymph # (Auto) 0.78 L (1.18-3.74) K/mm3 [place] # (Auto) 0.87 H (0.24-0.36) K/mm3 Eos # (Auto) 0.04 (0.04-0.36) K/mm3 Baso # (Auto) 0.01 (0.01-0.08) K/mm3 Manual Slide Review Abnormal smear Sodium 130 L (136-145) mEq/L Potassium 4.0 (3.5-5.1) mEq/L Chloride 93 L (98-107) mEq/L Carbon Dioxide 29 (21-32) mEq/L Anion Gap 12.0 (5-15) BUN 11 (7-18) mg/dL Creatinine 0.6 (0.55-1.02) mg/dL Est Cr Clr Drug Dosing 56.37 mL/min Estimated GFR (MDRD) > 60 (>60) mL/min BUN/Creatinine Ratio 18.3 H (14-18) Glucose 147 H (83-115) mg/dL Calcium 9.1 (8.5-10.1) mg/dL Magnesium 1.8 (1.8-2.4) mg/dl Med Orders - Current: Current Medications Discontinued Medications Acetaminophen (Tylenol) 650 mg PO Q4H PRN PRN Reason: Pain/Fever Last Admin: 04/09/19 04:36 Dose: 650 mg Hydrocodone Bitart/Acetaminophen ([place] 325-5 Mg) 1 - 2 tab PO Q4H PRN PRN Reason: Pain Last Admin: 04/08/19 03:54 Dose: 1 tab Amlodipine Besylate (Norvasc) 10 mg PO DAILY [facility] Last Admin: 04/09/19 08:22 Dose: 10 mg Apixaban (Eliquis) 5 mg PO BID [facility] Last Admin: 04/09/19 08:21 Dose: 5 mg Bisacodyl (Dulcolax) 5 mg PO DAILY PRN PRN Reason: Constipation Last Admin: 04/08/19 14:04 Dose: 5 mg Bisacodyl (Dulcolax) 10 mg RECTAL DAILY PRN PRN Reason: Constipation Bupivacaine HCl (Sensorcaine-Mpf 0.25%) Confirm Administered Dose 30 ml .ROUTE .STK-MED ONE Stop: 04/06/19 10:30 Cefazolin Sodium (Ancef) Confirm Administered Dose 2 gm .ROUTE .STK-MED ONE Stop: 04/06/19 06:04 Cefazolin Sodium (Ancef) Confirm Administered Dose 2 gm .ROUTE .STK-MED [facility] Stop: 04/06/19 06:30 Cefazolin Sodium (Ancef) Confirm Administered Dose 2 gm .ROUTE .[facility] Stop: 04/06/19 10:30 Cholecalciferol (Vitamin D3) 5,000 unit PO DAILY [facility] Last Admin: 04/09/19 08:22 Dose: 5,000 unit Morphine Sulfate 8 mg/Epinephrine HCl 0.3 mg/Cefuroxime Sodium 750 mg/Ketorolac Tromethamine 30 mg/Sodium Chloride 7.9 ml 0 mg .XX ASDIRECTED PRN PRN Reason: Pain Stop: 04/06/19 14:00 Diphenhydramine HCl (Benadryl) 25 mg IVPUSH Q6H PRN PRN Reason: pruritis Stop: 04/06/19 15:00 Duloxetine HCl (Cymbalta) 20 mg PO DAILY [facility] Last Admin: 04/09/19 08:22 Dose: 20 mg Duloxetine HCl (Cymbalta) 20 mg PO DAILY [facility] Ephedrine Sulfate (Ephedrine 25 Mg/5 Ml Syringe) Confirm Administered Dose 25 mg IV .[facility] Stop: 04/06/19 12:29 Ephedrine Sulfate (Ephedrine Sulfate) 5 mg IVPUSH ASDIRECTED PRN PRN Reason: Hypotension Stop: 04/06/19 16:00 Famotidine (Pepcid) 20 mg PO Q12H [facility] Fentanyl (Sublimaze) Confirm Administered Dose 100 mcg .ROUTE .[facility] Stop: 04/06/19 06:04 Fentanyl (Sublimaze) Confirm Administered Dose 100 mcg .ROUTE .[facility] Stop: 04/06/19 06:30 Fentanyl (Sublimaze) 50 mcg IVPUSH Q5M PRN PRN Reason: Pain Stop: 04/06/19 15:00 Fluticasone Propionate (Flonase) 0 gm NASBOTH BID PRN PRN Reason: as directed Hydromorphone HCl (Dilaudid) 0.5 mg IVPUSH Q15M PRN PRN Reason: Pain (severe 7-10) Stop: 04/06/19 15:00 Lactated Ringer's (Ringers, Lactated) 1,000 mls @ 125 mls/hr IV ASDIRECTED [facility] Stop: 04/06/19 23:00 Last Admin: 04/06/19 10:13 Dose: 125 mls/hr Lidocaine HCl (Xylocaine-Mpf 1%) Confirm Administered Dose 0 mls @ as directed .ROUTE .STK-MED ONE Stop: 04/06/19 06:04 Lactated Ringer's (Ringers, Lactated) Confirm Administered Dose 0 mls @ as directed .ROUTE .STK-MED ONE Stop: 04/06/19 06:04 Lactated Ringer's (Ringers, Lactated) Confirm Administered Dose 1,000 mls @ as directed .ROUTE .STK-MED ONE Stop: 04/06/19 06:29 Lidocaine HCl (Xylocaine-Mpf 1%) Confirm Administered Dose 6 mls @ as directed .ROUTE .STK-MED ONE Stop: 04/06/19 06:30 Cefazolin Sodium/Dextrose 2 gm (/ Premix) 50 mls @ 100 mls/hr IV Q8H KYLE Stop: 04/07/19 07:29 Last Admin: 04/07/19 03:21 Dose: Not Given Lactated Ringer's (Ringers, Lactated) Confirm Administered Dose 1,000 mls @ as directed .ROUTE .STK-MED ONE Stop: 04/06/19 12:25 Phenylephrine HCl 1 mg/ Sodium (Chloride) 10.1 mls @ 1 mls/sec IV TITRATE KYLE; Protocol Stop: 04/06/19 16:00 Cefazolin Sodium/Dextrose 2 gm (/ Premix) 50 mls @ 100 mls/hr IV Q8H KYLE Stop: 04/07/19 11:29 Last Admin: 04/07/19 10:13 Dose: 100 mls/hr Sodium Chloride (Normal Saline) 500 mls @ 999 mls/hr IV .BOLUS KYLE Last Admin: 04/07/19 16:22 Dose: 999 mls/hr Magnesium Sulfate 2 gm/ Premix 50 mls @ 25 mls/hr IV ONETIME ONE Stop: 04/08/19 08:59 Last Admin: 04/08/19 07:34 Dose: 25 mls/hr Iodine (Iodine 2% Mild Tincture) Confirm Administered Dose 30 ml .ROUTE .STK- MED ONE Stop: 04/06/19 10:30 Ketamine HCl (Ketalar) Confirm Administered Dose 500 mg .ROUTE .STK-MED ONE Stop: 04/06/19 06:05 Ketamine HCl (Ketalar) Confirm Administered Dose 500 mg .ROUTE .STK-MED ONE Stop: 04/06/19 06:31 Ketorolac Tromethamine (Toradol) Confirm Administered Dose 30 mg .ROUTE .STK- MED ONE Stop: 04/06/19 06:04 Lactulose (Cephulac) 10 gm PO Q6H [facility] Last Admin: 04/09/19 04:42 Dose: Not Given Lidocaine/Sodium Bicarbonate (Buffered Lidocaine 1% In Ns 8.4%) 0.25 ml IDERM ONETIME PRN PRN Reason: Prior to IV Start Stop: 04/06/19 18:00 Last Admin: 04/06/19 10:13 Dose: 0.25 ml Loratadine (Claritin) 10 mg PO DAILY [facility] Last Admin: 04/09/19 08:21 Dose: 10 mg Losartan Potassium (Cozaar) 50 mg PO QAM [facility] Last Admin: 04/09/19 08:22 Dose: 50 mg Magnesium Hydroxide (Milk Of Magnesia) 30 ml PO BID PRN PRN Reason: Constipation Metoprolol Tartrate (Lopressor) 100 mg PO BID [facility] Last Admin: 04/09/19 08:22 Dose: 100 mg Midazolam HCl (Versed 1 Mg/Ml) Confirm Administered Dose 2 mg .ROUTE .STK-MED ONE Stop: 04/06/19 06:04 Midazolam HCl (Versed 1 Mg/Ml) Confirm Administered Dose 2 mg .ROUTE .STK-MED ONE Stop: 04/06/19 06:31 Miscellaneous Medication (Phenylephrine 1 Mg/10 Ml-Ns) Confirm Administered Dose 1 mg IV .STK-MED ONE Stop: 04/06/19 06:04 Miscellaneous Medication (Phenylephrine 1 Mg/10 Ml-Ns) Confirm Administered Dose 1 mg IV .STK-MED ONE Stop: 04/06/19 06:30 Morphine Sulfate (Morphine) 2 mg IVPUSH Q2H PRN PRN Reason: Breakthrough Pain Naloxone HCl (Narcan) 0.1 mg IVPUSH Q5M PRN PRN Reason: Oversedation Ketotifen Fumarate (Drops Ptom) 1 drop EYEBOTH BID PRN PRN Reason: ITCHY EYES Linaclotide [Linzess ] 72 Mcg Pt's Own Medication 72 mcg PO ACLUNCH [facility] Last Admin: 04/08/19 09:25 Dose: Not Given Sodium Chloride 1, (000 Mg Tab Ptom) 1,000 mg PO BID [facility] Last Admin: 04/08/19 09:25 Dose: Not Given Ondansetron HCl (Zofran) Confirm Administered Dose 4 mg .ROUTE .STK-MED ONE Stop: 04/06/19 06:04 Ondansetron HCl (Zofran) Confirm Administered Dose 4 mg .ROUTE .K-MED ONE Stop: 04/06/19 06:30 Ondansetron HCl (Zofran) 4 mg IVPUSH Q6H PRN PRN Reason: Nausea/Vomiting Ondansetron HCl (Zofran) 4 mg IVPUSH ONETIME PRN PRN Reason: Nausea/Vomiting Stop: 04/06/19 16:00 Oral Electrolytes (Thermotabs) 1 each PO BID [facility] Last Admin: 04/09/19 08:21 Dose: 1 each Pantoprazole Sodium (Protonix) 40 mg PO DAILY [facility] Last Admin: 04/09/19 08:22 Dose: 40 mg Propofol (Diprivan 20 Ml) Confirm Administered Dose 400 mg .ROUTE .STK-MED ONE Stop: 04/06/19 06:04 Propofol (Diprivan 20 Ml) Confirm Administered Dose 400 mg .ROUTE .K-MED ONE Stop: 04/06/19 06:30 Rosuvastatin Calcium (Crestor) 5 mg PO BEDTIME [facility] Last Admin: 04/08/19 23:25 Dose: Not Given Senna (Senna) 8.6 mg PO BID PRN PRN Reason: Constipation Last Admin: 04/08/19 03:54 Dose: 8.6 mg Senna (Senna) 8.6 mg PO BID [facility] Senna/Docusate Sodium (Senna Plus) 2 tab PO BEDTIME [facility] Last Admin: 04/08/19 23:25 Dose: Not Given Sodium Chloride (Saline Flush) 10 ml FLUSH ASDIRECTED PRN PRN Reason: Keep Vein Open Stop: 04/06/19 18:00 Tranexamic Acid (Cyklokapron) Confirm Administered Dose 1,000 mg .ROUTE .STK- MED ONE Stop: 04/06/19 10:29 Triamcinolone Acetonide (Triamcinolone Acetonide 0.1% Crm) gm TOP ASDIRECTED PRN PRN Reason: ASDIRECTED Vancomycin HCl (Vancomycin) Confirm Administered Dose 1 gm .ROUTE .STK-MED ONE Stop: 04/06/19 10:30 - Exam Wound/Incisions: Dressing Dry and Intact General: Alert, Cooperative, No Acute Distress Lungs: Normal Respiratory Effort Extremities: Other (Left thigh soft. NVS intact for LLE.) Sepsis Event Note - Evaluation Sepsis Screening Result: No Definite Risk - Focused Exam Vital Signs: Vital Signs Temp Temp Pulse Resp BP Pulse Ox 04/09/19 08:51 97.9 F 04/09/19 08:22 62 131/43 L 04/09/19 08:00 62 20 131/43 L 92 L 04/09/19 06:50 65 94 L 04/09/19 04:35 97.5 F 63 18 133/48 L 98 Date Exam was Performed: 04/09/19 Time Exam was Performed: 13:46 - Problem List Review Problem List Initiated/Reviewed/Updated: Yes - My Orders Last 24 Hours: Active Orders 24 hr Category Date Time Status Communication Order [RC] ASDIRECTED Care 04/09/19 06:29 Active Dressing Change [Wound Care] [RC] ASDIRECTED Care 04/08/19 17:30 Active Ready for Discharge [RC] PER UNIT ROUTINE Care 04/09/19 06:28 Active - Assessment Assessment (Free Text/Narrative):: POD#3 - s/p left [facility] - Plan Plan (Free Text/Narrative):: 1. Discharge to [facility] today. The pt will benefit from continued PT and OT services. 2. Eliquis BID (this is a chronic medication for the pt). 3. FABI precautions. 4. f/u at [facility] scheduled The pt was evaluated by Dr. Corbin today.
--- NOTE | 2019-04-09 13:53 | PCM.DCSUM1 ---
Discharge Summary - Hospital Course Brief History: Shae is an 89 yo female who underwent left FABI with Dr. Corbin on 04-06-2019. The procedure was completed under spinal anesthesia with MAC. The pt tolerated the procedure well and was admitted to the Medical-Surgical Unit. The pt received Ancef kurtis-operatively. She participated in P.T. and O.T. She was allowed to WBAT and used a FWW for mobility. The pt's surgical wound was dressed with a Mepilex dressing and remained clean and dry. On POD#1 , the pt resumed use of Eliquis BID. The pt used TEDs and SCDs also. On POD#1 , the pt's hemoglobin was 12.3. Medical management was provided by the Hospitalist service and the pt's hospital course was unremarkable. On POD#3, the pt was deemed appropriate for discharge to the [facility] for continued rehab. Diagnosis: Stroke: No - Discharge Data Discharge Date: 04/09/19 Discharge Disposition: DC/Tfer to [facility] Condition: Good - Referral to Home Health Primary Care Physician: Jennifer Hayes PA-C - Patient Summary/Data Consults: Consultations 04/06/19 07:23 OT Evaluation and Treatment [CONS] Routine PT Evaluation and Treatment [CONS] Routine 04/06/19 07:25 Consult to Physician [CONS] Routine 04/06/19 17:21 Consult to Case Management/Roller Stainer [CONS] Routine - Patient Instructions Diet: Usual Diet as Tolerated Activity: Apply Ice, As Tolerated, Elevate Extremity, Full Weight Bearing Activity, Other: Follow the total hip precautions. Driving: Do Not Drive Showering/Bathing: May Shower Wound/Incision Care: Keep Operative Site/Wound Site Clean and Dry, Do NOT Change Dressing Notify Provider of: Fever, Increased Pain, Swelling and Redness, Drainage, Nausea and/or Vomiting Other/Special Instructions: Please get up and moving around EVERY HOUR while awake. This helps to prevent blood clots. Please use your walker and have help with mobility. Take a short walk every hour while awake. Please take the Eliquis medication as directed. Please complete the exercises that you learned during the Hospital stay. Follow the total hip precautions. Please have physical and occupational therapy at the [facility]. Use the pain medication as needed. The medication may cause drowsiness and constipation. Contact your primary care provider for instructions if you are constipated. You may use a stool softener like docusate sodium or Colace 100mg twice daily and/or a laxative like Miralax daily for constipation. Increase your water and fiber intake while you are using the pain medication. Discontinue use of the pain medication as soon as able. Please do not use other medications that may cause drowsiness (other pain medications, anxiety pills, cold medications, sleeping pills, etc) while using the prescription pain medication. Do not use alcohol while using the pain medication. You may use acetaminophen or Tylenol for pain management, however, please ensure you are not using over 4000 mg or 4 grams of acetaminophen per day from all sources. Your pain medication has 325mg of acetaminophen per tablet. Wear the ANNABELLA hose during the day and you may remove these at night. Elevate the limb to decrease swelling. Place ice to the area often. Place a towel between your skin and the blue pad. Use the incentive spirometer often. Take deep breaths throughout the day. Please keep the dressing in place until follow-up. Notify the Clinic if the dressing becomes saturated. You may resume use of cranberry tablets in 2 weeks (April 20, 2019). Call the Clinic with questions or concerns - [phone]. - Discharge Plan *PRESCRIPTION DRUG MONITORING PROGRAM REVIEWED*: No *COPY OF PRESCRIPTION DRUG MONITORING REPORT IN PATIENT GOYO: No Prescriptions/Med Rec: Acetaminophen/HYDROcodone [[place] 325-5 MG] 1 - 2 tab PO Q4H PRN #60 tablet PRN Reason: Pain Home Medications: Home Meds Losartan Potassium 50 mg PO QAM 08/27/14 [History] Triamcinolone Acetonide [Triamcinolone Acetonide 0.1% Crm] 1 dose TOP ASDIRECTED PRN 01/13/18 [History] Apixaban [Eliquis] 5 mg PO BID 04/03/19 [History] Cholecalciferol (Vitamin D3) [Vitamin D3] 5,000 unit PO DAILY 04/03/19 [History] Fluticasone Propionate [Flonase] 1 dose NASBOTH BID PRN 04/03/19 [History] Linaclotide [Linzess] 72 mcg PO ACLUNCH 04/03/19 [History] Sodium Chloride 1,000 mg PO BID 04/03/19 [History] amLODIPine Besylate [Amlodipine Besylate] 10 mg PO DAILY 04/03/19 [History] DULoxetine [Cymbalta] 20 mg PO DAILY 04/06/19 [History] Docusate Sodium/Sennosides [Senna Plus] 2 tab PO BEDTIME 04/06/19 [History] Loratadine 10 mg PO DAILY 04/06/19 [History] Metoprolol Tartrate 100 mg PO BID 04/06/19 [History] Rosuvastatin [Crestor] 10 mg PO BEDTIME 04/06/19 [History] Acetaminophen [Tylenol] 650 mg PO Q4H PRN tablet 04/08/19 [Rx] Acetaminophen/HYDROcodone [[place] 325-5 MG] 1 - 2 tab PO Q4H PRN #60 tablet 04/08 [Rx] Ketotifen Fumarate 1 drop EYEBOTH BID PRN 04/08/19 [Rx] Pantoprazole [ProTONIX] 40 mg PO DAILY tab.cr 04/08/19 [Rx] Sennosides [Senna] 8.6 mg PO BID PRN tablet 04/08/19 [Rx] bisacodyL [Dulcolax] 5 mg PO DAILY PRN tablet 04/08/19 [Rx] Patient Handouts: Total Hip Replacement, [id number], Apixaban oral tablets Referrals: Mora España PA-C [Physician Ekg Monitor] - (1. Follow-up with Mora España PA-C on April 21, 2019 at 1:45pm ([place] ) in [place]. 2. Follow-up with Mora España PA-C on May 19, 2019 at 11:45am ([place] ) in [place].) - Discharge Summary/Plan Comment DC Time >30 min.: No - Patient Data Vitals - Most Recent: Last Vital Signs Temp 97.9 F 04/09/19 08:51 Pulse 62 04/09/19 08:22 Resp 20 04/09/19 08:00 BP 131/43 L 04/09/19 08:22 Pulse Ox 92 L 04/09/19 08:00 Weight - Most Recent: 142 lb 8 oz I&O - Last 24 hours: Intake & Output 04/08/19 04/09/19 04/09/19 22:59 06:59 14:59 Intake Total 1200 400 120 Output Total 200 475 Balance 1000 -75 120 Lab Results - Last 24 hrs: Laboratory Results - last 24 hr 04/09/19 04/09/19 Range/Units 07:40 07:40 WBC 12.07 H (3.98-10.04) K/mm3 RBC 3.34 L (3.98-5.22) M/mm3 Hgb 11.2 (11.2-15.7) gm/dl Hct 34.5 (34.1-44.9) % MCV 103.3 H (79.4-94.8) fl MCH 33.5 H (25.6-32.2) pg MCHC 32.5 (32.2-35.5) g/dl RDW Std Deviation 46.5 H (36.4-46.3) fL Plt Count 216 (182-369) K/mm3 MPV 9.8 (9.4-12.3) fl Neut % (Auto) 85.7 H (34.0-71.1) % Lymph % (Auto) 6.5 L (19.3-51.7) % [place] % (Auto) 7.2 (4.7-12.5) % Eos % (Auto) 0.3 L (0.7-5.8) Baso % (Auto) 0.1 (0.1-1.2) % Neut # (Auto) 10.35 H (1.56-6.13) K/mm3 Lymph # (Auto) 0.78 L (1.18-3.74) K/mm3 [place] # (Auto) 0.87 H (0.24-0.36) K/mm3 Eos # (Auto) 0.04 (0.04-0.36) K/mm3 Baso # (Auto) 0.01 (0.01-0.08) K/mm3 Manual Slide Review Abnormal smear Sodium 130 L (136-145) mEq/L Potassium 4.0 (3.5-5.1) mEq/L Chloride 93 L (98-107) mEq/L Carbon Dioxide 29 (21-32) mEq/L Anion Gap 12.0 (5-15) BUN 11 (7-18) mg/dL Creatinine 0.6 (0.55-1.02) mg/dL Est Cr Clr Drug Dosing 56.37 mL/min Estimated GFR (MDRD) > 60 (>60) mL/min BUN/Creatinine Ratio 18.3 H (14-18) Glucose 147 H (83-115) mg/dL Calcium 9.1 (8.5-10.1) mg/dL Magnesium 1.8 (1.8-2.4) mg/dl Med Orders - Current: Current Medications Discontinued Medications Acetaminophen (Tylenol) 650 mg PO Q4H PRN PRN Reason: Pain/Fever Last Admin: 04/09/19 04:36 Dose: 650 mg Hydrocodone Bitart/Acetaminophen ([place] 325-5 Mg) 1 - 2 tab PO Q4H PRN PRN Reason: Pain Last Admin: 04/08/19 03:54 Dose: 1 tab Amlodipine Besylate (Norvasc) 10 mg PO DAILY [facility] Last Admin: 04/09/19 08:22 Dose: 10 mg Apixaban (Eliquis) 5 mg PO BID [facility] Last Admin: 04/09/19 08:21 Dose: 5 mg Bisacodyl (Dulcolax) 5 mg PO DAILY PRN PRN Reason: Constipation Last Admin: 04/08/19 14:04 Dose: 5 mg Bisacodyl (Dulcolax) 10 mg RECTAL DAILY PRN PRN Reason: Constipation Bupivacaine HCl (Sensorcaine-Mpf 0.25%) Confirm Administered Dose 30 ml .ROUTE .STK-MED ONE Stop: 04/06/19 10:30 Cefazolin Sodium (Ancef) Confirm Administered Dose 2 gm .ROUTE .STK-MED ONE Stop: 04/06/19 06:04 Cefazolin Sodium (Ancef) Confirm Administered Dose 2 gm .ROUTE .STK-MED ONE Stop: 04/06/19 06:30 Cefazolin Sodium (Ancef) Confirm Administered Dose 2 gm .ROUTE .STK-MED ONE Stop: 04/06/19 10:30 Cholecalciferol (Vitamin D3) 5,000 unit PO DAILY [facility] Last Admin: 04/09/19 08:22 Dose: 5,000 unit Morphine Sulfate 8 mg/Epinephrine HCl 0.3 mg/Cefuroxime Sodium 750 mg/Ketorolac Tromethamine 30 mg/Sodium Chloride 7.9 ml 0 mg .XX ASDIRECTED PRN PRN Reason: Pain Stop: 04/06/19 14:00 Diphenhydramine HCl (Benadryl) 25 mg IVPUSH Q6H PRN PRN Reason: pruritis Stop: 04/06/19 15:00 Duloxetine HCl (Cymbalta) 20 mg PO DAILY [facility] Last Admin: 04/09/19 08:22 Dose: 20 mg Duloxetine HCl (Cymbalta) 20 mg PO DAILY [facility] Ephedrine Sulfate (Ephedrine 25 Mg/5 Ml Syringe) Confirm Administered Dose 25 mg IV .STK-MED ONE Stop: 04/06/19 12:29 Ephedrine Sulfate (Ephedrine Sulfate) 5 mg IVPUSH ASDIRECTED PRN PRN Reason: Hypotension Stop: 04/06/19 16:00 Famotidine (Pepcid) 20 mg PO Q12H [facility] Fentanyl (Sublimaze) Confirm Administered Dose 100 mcg .ROUTE .STK-MED ONE Stop: 04/06/19 06:04 Fentanyl (Sublimaze) Confirm Administered Dose 100 mcg .ROUTE .STK-MED ONE Stop: 04/06/19 06:30 Fentanyl (Sublimaze) 50 mcg IVPUSH Q5M PRN PRN Reason: Pain Stop: 04/06/19 15:00 Fluticasone Propionate (Flonase) 0 gm NASBOTH BID PRN PRN Reason: as directed Hydromorphone HCl (Dilaudid) 0.5 mg IVPUSH Q15M PRN PRN Reason: Pain (severe 7-10) Stop: 04/06/19 15:00 Lactated Ringer's (Ringers, Lactated) 1,000 mls @ 125 mls/hr IV ASDIRECTED [facility] Stop: 04/06/19 23:00 Last Admin: 04/06/19 10:13 Dose: 125 mls/hr Lidocaine HCl (Xylocaine-Mpf 1%) Confirm Administered Dose 0 mls @ as directed .ROUTE .STK-MED ONE Stop: 04/06/19 06:04 Lactated Ringer's (Ringers, Lactated) Confirm Administered Dose 0 mls @ as directed .ROUTE .STK-MED ONE Stop: 04/06/19 06:04 Lactated Ringer's (Ringers, Lactated) Confirm Administered Dose 1,000 mls @ as directed .ROUTE .STK-MED ONE Stop: 04/06/19 06:29 Lidocaine HCl (Xylocaine-Mpf 1%) Confirm Administered Dose 6 mls @ as directed .ROUTE .STK-MED ONE Stop: 04/06/19 06:30 Cefazolin Sodium/Dextrose 2 gm (/ Premix) 50 mls @ 100 mls/hr IV Q8H KYLE Stop: 04/07/19 07:29 Last Admin: 04/07/19 03:21 Dose: Not Given Lactated Ringer's (Ringers, Lactated) Confirm Administered Dose 1,000 mls @ as directed .ROUTE .STK-MED ONE Stop: 04/06/19 12:25 Phenylephrine HCl 1 mg/ Sodium (Chloride) 10.1 mls @ 1 mls/sec IV TITRATE KYLE; Protocol Stop: 04/06/19 16:00 Cefazolin Sodium/Dextrose 2 gm (/ Premix) 50 mls @ 100 mls/hr IV Q8H KYLE Stop: 04/07/19 11:29 Last Admin: 04/07/19 10:13 Dose: 100 mls/hr Sodium Chloride (Normal Saline) 500 mls @ 999 mls/hr IV .BOLUS KYLE Last Admin: 04/07/19 16:22 Dose: 999 mls/hr Magnesium Sulfate 2 gm/ Premix 50 mls @ 25 mls/hr IV ONETIME ONE Stop: 04/08/19 08:59 Last Admin: 04/08/19 07:34 Dose: 25 mls/hr Iodine (Iodine 2% Mild Tincture) Confirm Administered Dose 30 ml .ROUTE .STK- MED ONE Stop: 04/06/19 10:30 Ketamine HCl (Ketalar) Confirm Administered Dose 500 mg .ROUTE .STK-MED ONE Stop: 04/06/19 06:05 Ketamine HCl (Ketalar) Confirm Administered Dose 500 mg .ROUTE .STK-MED ONE Stop: 04/06/19 06:31 Ketorolac Tromethamine (Toradol) Confirm Administered Dose 30 mg .ROUTE .STK- MED ONE Stop: 04/06/19 06:04 Lactulose (Cephulac) 10 gm PO Q6H [facility] Last Admin: 04/09/19 04:42 Dose: Not Given Lidocaine/Sodium Bicarbonate (Buffered Lidocaine 1% In Ns 8.4%) 0.25 ml IDERM ONETIME PRN PRN Reason: Prior to IV Start Stop: 04/06/19 18:00 Last Admin: 04/06/19 10:13 Dose: 0.25 ml Loratadine (Claritin) 10 mg PO DAILY [facility] Last Admin: 04/09/19 08:21 Dose: 10 mg Losartan Potassium (Cozaar) 50 mg PO QAM [facility] Last Admin: 04/09/19 08:22 Dose: 50 mg Magnesium Hydroxide (Milk Of Magnesia) 30 ml PO BID PRN PRN Reason: Constipation Metoprolol Tartrate (Lopressor) 100 mg PO BID [facility] Last Admin: 04/09/19 08:22 Dose: 100 mg Midazolam HCl (Versed 1 Mg/Ml) Confirm Administered Dose 2 mg .ROUTE .STK-MED ONE Stop: 04/06/19 06:04 Midazolam HCl (Versed 1 Mg/Ml) Confirm Administered Dose 2 mg .ROUTE .STK-MED ONE Stop: 04/06/19 06:31 Miscellaneous Medication (Phenylephrine 1 Mg/10 Ml-Ns) Confirm Administered Dose 1 mg IV .STK-MED ONE Stop: 04/06/19 06:04 Miscellaneous Medication (Phenylephrine 1 Mg/10 Ml-Ns) Confirm Administered Dose 1 mg IV .STK-MED ONE Stop: 04/06/19 06:30 Morphine Sulfate (Morphine) 2 mg IVPUSH Q2H PRN PRN Reason: Breakthrough Pain Naloxone HCl (Narcan) 0.1 mg IVPUSH Q5M PRN PRN Reason: Oversedation Ketotifen Fumarate (Drops Ptom) 1 drop EYEBOTH BID PRN PRN Reason: ITCHY EYES Linaclotide [Linzess ] 72 Mcg Pt's Own Medication 72 mcg PO ACLUNCH [facility] Last Admin: 04/08/19 09:25 Dose: Not Given Sodium Chloride 1, (000 Mg Tab Ptom) 1,000 mg PO BID [facility] Last Admin: 04/08/19 09:25 Dose: Not Given Ondansetron HCl (Zofran) Confirm Administered Dose 4 mg .ROUTE .STK-MED ONE Stop: 04/06/19 06:04 Ondansetron HCl (Zofran) Confirm Administered Dose 4 mg .ROUTE .STK-MED ONE Stop: 04/06/19 06:30 Ondansetron HCl (Zofran) 4 mg IVPUSH Q6H PRN PRN Reason: Nausea/Vomiting Ondansetron HCl (Zofran) 4 mg IVPUSH ONETIME PRN PRN Reason: Nausea/Vomiting Stop: 04/06/19 16:00 Oral Electrolytes (Thermotabs) 1 each PO BID [facility] Last Admin: 04/09/19 08:21 Dose: 1 each Pantoprazole Sodium (Protonix) 40 mg PO DAILY [facility] Last Admin: 04/09/19 08:22 Dose: 40 mg Propofol (Diprivan 20 Ml) Confirm Administered Dose 400 mg .ROUTE .STK-MED ONE Stop: 04/06/19 06:04 Propofol (Diprivan 20 Ml) Confirm Administered Dose 400 mg .ROUTE .STK-MED ONE Stop: 04/06/19 06:30 Rosuvastatin Calcium (Crestor) 5 mg PO BEDTIME [facility] Last Admin: 04/08/19 23:25 Dose: Not Given Senna (Senna) 8.6 mg PO BID PRN PRN Reason: Constipation Last Admin: 04/08/19 03:54 Dose: 8.6 mg Senna (Senna) 8.6 mg PO BID [facility] Senna/Docusate Sodium (Senna Plus) 2 tab PO BEDTIME [facility] Last Admin: 04/08/19 23:25 Dose: Not Given Sodium Chloride (Saline Flush) 10 ml FLUSH ASDIRECTED PRN PRN Reason: Keep Vein Open Stop: 04/06/19 18:00 Tranexamic Acid (Cyklokapron) Confirm Administered Dose 1,000 mg .ROUTE .STK- MED ONE Stop: 04/06/19 10:29 Triamcinolone Acetonide (Triamcinolone Acetonide 0.1% Crm) gm TOP ASDIRECTED PRN PRN Reason: ASDIRECTED Vancomycin HCl (Vancomycin) Confirm Administered Dose 1 gm .ROUTE .STK-MED ONE Stop: 04/06/19 10:30
--- NOTE | 2019-04-10 15:46 | PCM.OPNOTE ---
- General Post-Op/Procedure Note Date of Surgery/Procedure: 04/06/19 Operative Procedure(s): left total hip arthroplasty Pre Op Diagnosis: left hip osteoarthrosis Post-Op Diagnosis: Same Anesthesia Technique: Local, MAC, Spinal Primary Surgeon: Caleb Corbin Anesthesia Provider: Martha Hastings Clinical Biostatistics Director: Mora España Clinical Biostatistics Director: Lia Kaba in mLs: 60 Complications: None Condition: Good Free Text/Narrative:: 52 5 /
--- NOTE | 2019-04-10 16:37 | OR ---
DATE OF OPERATION: 04/06/2019 SURGEON: Caleb Corbin MD OPERATION PERFORMED: Left total hip arthoplasty. PREOPERATIVE DIAGNOSIS: Left hip osteoarthrosis. POSTOPERATIVE DIAGNOSIS: Left hip osteoarthrosis. ANESTHESIA: Local MAC with spinal. ANESTHESIA PROVIDER: Rola Acevedo. ASSISTANTS: Mora España PA-C, and Lia Kaba LPN. ESTIMATED BLOOD LOSS: 60 mL. COMPLICATIONS: None. CONDITION: Stable. IMPLANTS: 1. Diane size 52 mm solid Tritanium II acetabular cup. 2. Diane size 28/42, +0 MDM components. 3. [place] size 5 Accolade II stem. DESCRIPTION OF PROCEDURE: The patient was identified in the preoperative holding area. Proper site was marked and identified by the surgeon. The patient was taken back to the operative theater where after adequate anesthesia, the patient was placed in the right lateral decubitus position. Axillary roll was placed. All bony prominences were well padded. Pegs were then placed and well padded. The patient's gluteal fold was parallel to the floor. The left hip was then sterilely prepped and draped in the usual sterile fashion. OR time-out was performed. The patient received 2 g of IV Ancef. A standard posterior incision was made centered over the greater trochanter. This was taken down to the IT band and gluteal fascia which was incised along the incisional length. Charnley retractor was then placed. Short external rotators were identified and takedown of short external rotators as well as a capsulotomy were performed from the level of the piriformis down to the lesser trochanter. Hip was then dislocated. A neck cut was then completed and attention was turned to the acetabulum. Anterior and posterior acetabular retractors were then placed. Circumferential removal of the labrum was done at this time as well as removal of the pulvinar. Starting with a 48 reamer, I was able to ream up to a 52, which was found to have adequate bony purchase. A 52 mm Tritanium II acetabular cup was then impacted in place in roughly 45 to 50 degrees of abduction and 20 to 30 degrees of anteversion. The MDM liner was then impacted into place. Attention was turned to the femur. Box chisel was used out laterally. Starter awl was placed down the canal. Starting with the 0 broach, I was able to broach up to a size 5, which was found to be rotationally and vertically stable. A +0 MDM trial was then placed. It had adequate confucianist of leg lengths and was stable throughout range of motion. The trial components were then removed. The hip was dislocated with the use of a bone hook. The size 5 Accolade II stem was impacted in place along with the 28/42 MDM components after they were constructed on the back table. Hip was then relocated. A #5 Ethibond suture was used for closure of the short external rotators and capsule. 1 L dilute Betadine solution was irrigated through the hip along with 2 L of pulse lavage irrigation with Ancef. Periarticular injection was then completed. Topical tranexamic acid and vancomycin powder were applied. A #2 barbed suture was used for closure of IT band and gluteal fascia, 2-0 Vicryl was used subcutaneously, and Prineo was used for the skin. The patient tolerated the procedure well and sent to PACU in stable condition. MMODAL /[id number]
== END 2019-04-09 10:15 | DRG 470 ==
LOC: JD.MS 09:20
PROVIDERS: ADMIT Orthopaedic Surgery; ATTEND Orthopaedic Surgery
PROC: 0SRB0JZ Replacement of Left Hip Joint with Synthetic Substitute, Open Approach (ICD-10-PCS; principal; 2019-04-06)
DX: M16.12 Unilateral primary osteoarthritis, left hip (principal); E87.1 Hypo-osmolality and hyponatremia; I48.0 Paroxysmal atrial fibrillation; K21.9 Gastro-esophageal reflux disease without esophagitis; J44.9 Chronic obstructive pulmonary disease, unspecified; F41.9 Anxiety disorder, unspecified; F32.9 Major depressive disorder, single episode, unspecified; E78.5 Hyperlipidemia, unspecified; G47.00 Insomnia, unspecified; M81.0 Age-related osteoporosis without current pathological fracture; E83.42 Hypomagnesemia; G62.9 Polyneuropathy, unspecified; M35.3 Polymyalgia rheumatica; I11.0 Hypertensive heart disease with heart failure; I50.9 Heart failure, unspecified; Z96.641 Presence of right artificial hip joint; G43.909 Migraine, unspecified, not intractable, without status migrainosus; H54.7 Unspecified visual loss; H91.90 Unspecified hearing loss, unspecified ear; M54.9 Dorsalgia, unspecified; G89.29 Other chronic pain; Z98.49 Cataract extraction status, unspecified eye; Z88.0 Allergy status to penicillin; Z95.0 Presence of cardiac pacemaker; Z88.1 Allergy status to other antibiotic agents; Z79.899 Other long term (current) drug therapy; Z79.01 Long term (current) use of anticoagulants
CPT/HCPCS: 01214; 36415; 51798; 73501-26-LT; 73501-LT; 74018; 74018-26; 80048; 80053; 82962; 83735; 85025; 85027; 86850; 86900; 86901; 87641; 94761; 97110-GP; 97116-GP; 97161-GP; 97165-GO; 97530-GO; 97530-GP; 97535-GO; A9270-GY; C1776; J0690; J1885; J2001; J2250; J2405; J2704; J3010; J3370; J3475; J3490; J7040; J7120

== ENCOUNTER 2019-08-22 09:50 | Observation (INO) | payer MEDICARE, BC ==
--- NOTE | 2019-08-22 10:24 | EDM.PDOC ---
ED HPI GENERAL MEDICAL PROBLEM - General Chief Complaint: Upper Extremity Injury/Pain Stated Complaint: [facility] Time Seen by Provider: 08/22/19 09:55 Source of Information: Reports: Patient, EMS History Limitations: Reports: No Limitations - History of Present Illness INITIAL COMMENTS - FREE TEXT/NARRATIVE: The patient presents by [facility] for a fall and left shoulder pain. She recently had hip surgery and she has a commode at the bedside. She urinated in the commode and she was carrying the bucket to the bathroom and she slipped and fell and landed on her left shoulder. She did hit her head and she had a nose bleed. That did stop before arrival. She is on eliquis. She has a mild headache. She has no neck pain, chest pain, or abdominal pain. She has no pain in her hip or legs. She did get some fentanyl for pain. Onset: Sudden Duration: Minutes: Location: Reports: Upper Extremity, Left (shoulder) Quality: Reports: Sharp Severity: Moderate Improves with: Reports: Immobilization Worsens with: Reports: Movement Context: Reports: Trauma (slipped and fell) Associated Symptoms: Reports: No Other Symptoms Left Shoulder Pain Score (Numeric/FACES): 5 - Related Data Allergies Allergy/AdvReac Type Severity Reaction Status Date / Time ciprofloxacin Allergy Rash Verified 08/22/19 10:00 Penicillins Allergy Rash Verified 08/22/19 10:00 Home Meds: Home Meds Losartan Potassium 50 mg PO QAM 08/27/14 [History] Triamcinolone Acetonide [Triamcinolone Acetonide 0.1% Crm] 1 dose TOP ASDIRECTED PRN 01/13/18 [History] Apixaban [Eliquis] 5 mg PO BID 04/03/19 [History] Cholecalciferol (Vitamin D3) [Vitamin D3] 5,000 unit PO DAILY 04/03/19 [History] Fluticasone Propionate [Flonase] 1 dose NASBOTH BID PRN 04/03/19 [History] Sodium Chloride 1,000 mg PO BID PRN 04/03/19 [History] amLODIPine Besylate [Amlodipine Besylate] 10 mg PO DAILY 04/03/19 [History] DULoxetine [Cymbalta] 20 mg PO DAILY 04/06/19 [History] Docusate Sodium/Sennosides [Senna Plus] 2 tab PO BEDTIME 04/06/19 [History] Loratadine 10 mg PO DAILY 04/06/19 [History] Metoprolol Tartrate 100 mg PO BID 04/06/19 [History] Rosuvastatin [Crestor] 5 mg PO BEDTIME 04/06/19 [History] Acetaminophen [Tylenol] 650 mg PO Q4H PRN tablet 04/08/19 [Rx] Pantoprazole [ProTONIX] 40 mg PO DAILY tab.cr 04/08/19 [Rx] bisacodyL [Dulcolax] 5 mg PO DAILY PRN tablet 04/08/19 [Rx] Cranberry 1 tab PO DAILY 08/22/19 [History] Ketotifen Fumarate [Zaditor] 1 drop EYEBOTH ASDIRECTED PRN 08/22/19 [History] Sennosides [Senna] 8.6 mg PO DAILY PRN 08/22/19 [History] Past Medical History HEENT 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: Hard of Hearing, Impaired Vision Other HEENT History: 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 Cardiovascular 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: Arrhythmia, Pacemaker Respiratory 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: Other (See Below) Other Respiratory History: cough Gastrointestinal 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: GERD Other Gastrointestinal History: bloating, small intestine bacterial overgrowth, nausea and vomiting Genitourinary 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: UTI, Recurrent MANAGER PERSONAL 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: Other MANAGER PERSONAL History: endometrial thickening, atrophic vaginitis, vaginal pruritis, pelvic pain Musculoskeletal 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: Back Pain, Chronic, Other (See Below) Other Musculoskeletal History: spinal stinosis repair Neurological 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: Migraines Other Neuro History: 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, increasing headaches/head pains Psychiatric 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: Anxiety, Depression, Other (See Below) Other Psychiatric History: insomnia Endocrine/Metabolic 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: Other (See Below) Other Endocrine/Metabolic History: inappropriate ADH production Hematologic 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: Anemia Other Hematologic History: hyponatremia Immunologic 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: None Oncologic (Cancer) 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: None Dermatologic 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: Other (See Below) Other Dermatologic History: pruritis, seborrheic keratosis - Past Surgical History Female Surgical 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: None Neurological Surgical 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: None Other Musculoskeletal Surgeries/Procedures:: right hip replacement 7 years ago Oncologic Surgical 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: None Dermatological Surgical 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: None Social & Family History - Family History Family Medical History: Noncontributory Cardiac: Reports: CAD Oncologic: Reports: Breast - Tobacco Use Smoking Status *Q: Former Smoker Used Tobacco, but Quit: Yes Month/Year Tobacco Last Used: 30 years ago - Caffeine Use Caffeine Use: Reports: None Caffeine Use Comment: 2 cups/day - Recreational Drug Use Recreational Drug Use: No - Living Situation & Occupation Living situation: Reports: Occupation: Retired Review of Systems - Review of Systems Review Of Systems: See Below Constitutional: Reports: No Symptoms Eyes: Reports: No Symptoms Ears: Reports: No Symptoms Nose: Reports: Epistaxis (stopped now) Mouth/Throat: Reports: No Symptoms Respiratory: Reports: No Symptoms Cardiovascular: Reports: No Symptoms GI/Abdominal: Reports: No Symptoms Genitourinary: Reports: No Symptoms Musculoskeletal: Reports: Shoulder Pain (left) Neurological: Reports: Headache (mild) ED EXAM, GENERAL - Physical Exam Exam: See Below Exam Limited By: No Limitations General Appearance: Alert, No Apparent Distress Ears: Normal External Exam Nose: Other (Dried blood in the right nostril) Head: Normocephalic Neck: Normal Inspection, Supple, Non-Tender Respiratory/Chest: No Respiratory Distress, Lungs Clear, Normal Breath Sounds Cardiovascular: Regular Rate, Rhythm, No Edema, No Murmur GI/Abdominal: Soft, Non-Tender, No Organomegaly, No Mass Extremities: Other (Pain upon palpation with edema to the left shoulder. Good sensation and pulses distally. No pain upon palpation to either hips.) Neurological: Alert, Oriented, No Motor/Sensory Deficits Course - Vital Signs Last Recorded V/S: Last Vital Signs Temp 98.2 F 08/22/19 09:56 Pulse 82 08/22/19 09:56 Resp 16 08/22/19 09:56 BP 150/63 H 08/22/19 09:56 Pulse Ox 96 08/22/19 09:56 - Orders/Labs/Meds Orders: Active Orders 24 hr Category Date Time Status Durable Medical Equipment for Discharge [DME for Oth 08/22/19 11:17 Ordered Discharge] [COMM] Stat Meds: Medications Discontinued Medications Generic Name Dose Route Start Last Admin Trade Name Freq PRN Reason Stop Dose Admin Hydromorphone HCl 0.25 mg 08/22/19 11:38 Dilaudid IVPUSH 08/22/19 11:39 ONETIME ONE - Re-Assessments/Exams Free Text/Narrative Re-Assessment/Exam: 08/22/19 10:[address] of her head and an x-ray of her left shoulder. 08/22/19 11:[address] of her head shows nothing acute. The x-ray of her shoulder shows a proximal humerus fracture. We have no orthopedic coverage this weekend. I called Dr Gamino in [place] at [facility] in [place] and he wanted her in a shoulder immobilizer and he can see her in the clinic in 1 to 2 weeks. I talked with the patient and her son and we all have concerns about how she is going to do at home. She lives at home with help from family at times that stop by. I will get a shoulder immobilizer on her and have her get up and see how she does. 08/22/19 11:43 She did not do well. I think she may need to be admitted. I called Dr Duarte and he agreed to the admission. Departure - Departure Time of Disposition: 11:45 Disposition: Refer to Observation Condition: Fair Clinical Impression: Fall Qualifiers: Encounter type: initial encounter Qualified Code(s): W19.XXXA - Unspecified fall, initial encounter Closed fracture of left proximal humerus Qualifiers: Encounter type: initial encounter Fracture morphology: other fracture Fracture alignment: nondisplaced Qualified Code(s): S42.295A - Other nondisplaced fracture of upper end of left humerus, initial encounter for closed fracture - Discharge Information Referrals: Jennifer Hayes PA-C [Primary Care Provider] - Forms: ED Department Discharge Sepsis Event Note (ED) - Evaluation Sepsis Screening Result: No Definite Risk - Focused Exam Vital Signs: Vital Signs Temp Pulse Resp BP Pulse Ox 08/22/19 09:56 98.2 F 82 16 150/63 H 96 - My Orders Last 24 Hours: My Active Orders 08/22/19 11:17 Durable Medical Equipment for Discharge [DME for Discharge] [COMM] Stat - Assessment/Plan Last 24 Hours: My Active Orders 08/22/19 11:17 Durable Medical Equipment for Discharge [DME for Discharge] [COMM] Stat
--- NOTE | 2019-08-22 11:35 | CR ---
Left shoulder: 2 views of the left shoulder were obtained. Comparison: No previous shoulder study. Fracture is identified within the proximal diaphysis and surgical neck of the humerus. Alignment is close to anatomic. No additional fracture or other bony abnormality is seen. Impression: 1. Proximal humeral fracture as described above. Diagnostic code #3 This report was dictated in MDT
--- NOTE | 2019-08-22 11:37 | CT ---
Head CT Technique: Multiple axial sections through the brain were obtained. Intravenous contrast was not utilized. Comparison: Prior head CT exam of 07/23/12 Findings: Ventricles along with basal cisterns and sulci over the convexities are mildly prominent. Diminished density is noted within portions of the periventricular and subcortical white matter most likely due to small vessel ischemic demyelination change. No other abnormal parenchymal densities are seen. No evidence of intracranial hemorrhage. No midline shift or mass-effect is appreciated. Bone window settings were reviewed which show the visualized paranasal sinuses do show nothing acute. Visualized mastoid sinus is also show nothing acute. Prior left-sided craniotomy is noted. No acute calvarial abnormality is appreciated. Impression: 1. Findings as described above. 2. No acute intracranial abnormality is appreciated. Diagnostic code #2 This report was dictated in MDT I agree with preliminary report from [facility], finalized on 08/22/19, 11:41 AM Central Daylight Time
[2019-08-22] MEDS ORDERED: HYDROmorphone 0.5 MG/0.5 ML Syringe IVPUSH ONE (11:38)
--- NOTE | 2019-08-22 15:32 | PCM.HP.2 ---
H&P History of Present Illness - General Date of Service: 08/22/19 Admit Problem/Dx: Admission Diagnosis/Problem Admission Diagnosis/Problem Fracture of humerus/unable to care for self Source of Information: Patient, EMS History Limitations: Reports: No Limitations - History of Present Illness Initial Comments - Free Text/Narative: 08/22/19 89 year old female who fell at home and fractured left humerus. placed in sling and definitive ortho care to be determined. she lives alone with no local family and cannot return home without help . hypertension and previous hip surgery and hx of osteoporosis and bilateral thr ros anticoagulation for paf. balance strength good .cognition and memory good. p.e. irreg reg rhythm. left humerous pain with movement in sling. mod swelling nad bruise prox. lab wnl. ekg pending. 'xray non comminuted /non displaced prox hum fx. assess fracture l humerus. complicated by hematoma and pain and inability f to care for self. plan admit pain control / home going issues to be discussed with family /patient Onset of Symptoms: Reports: Today Location: Reports: Upper Extremity, Left Quality: Reports: Sharp, Stabbing Severity: Severe Improves with: Reports: Immobilization Worsens with: Reports: Movement Associated Symptoms: Reports: No Other Symptoms Left Shoulder Pain Score (Numeric/FACES): 4 - Related Data Allergies/Adverse Reactions: Allergies Allergy/AdvReac Type Severity Reaction Status Date / Time Penicillins Allergy Rash Verified 08/22/19 10:00 Home Medications: Home Meds Losartan Potassium 50 mg PO QAM 08/27/14 [History] Triamcinolone Acetonide [Triamcinolone Acetonide 0.1% Crm] 1 dose TOP ASDIRECTED PRN 01/13/18 [History] Apixaban [Eliquis] 5 mg PO BID 04/03/19 [History] Cholecalciferol (Vitamin D3) [Vitamin D3] 5,000 unit PO DAILY 04/03/19 [History] Fluticasone Propionate [Flonase] 1 dose NASBOTH BID PRN 04/03/19 [History] Sodium Chloride 1,000 mg PO BID PRN 04/03/19 [History] amLODIPine Besylate [Amlodipine Besylate] 10 mg PO DAILY 04/03/19 [History] DULoxetine [Cymbalta] 20 mg PO DAILY 04/06/19 [History] Docusate Sodium/Sennosides [Senna Plus] 2 tab PO BEDTIME 04/06/19 [History] Loratadine 10 mg PO DAILY 04/06/19 [History] Metoprolol Tartrate 100 mg PO BID 04/06/19 [History] Rosuvastatin [Crestor] 5 mg PO BEDTIME 04/06/19 [History] Acetaminophen [Tylenol] 650 mg PO Q4H PRN tablet 04/08/19 [Rx] Pantoprazole [ProTONIX] 40 mg PO DAILY tab.cr 04/08/19 [Rx] bisacodyL [Dulcolax] 5 mg PO DAILY PRN tablet 04/08/19 [Rx] Cranberry 1 tab PO DAILY 08/22/19 [History] Ketotifen Fumarate [Zaditor] 1 drop EYEBOTH ASDIRECTED PRN 08/22/19 [History] Sennosides [Senna] 8.6 mg PO DAILY PRN 08/22/19 [History] Past Medical History HEENT 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: Hard of Hearing, Impaired Vision Other HEENT History: 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 approx 2008 Cardiovascular 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: Arrhythmia, Pacemaker Respiratory 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: Other (See Below) Other Respiratory History: cough Gastrointestinal 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: GERD Other Gastrointestinal History: bloating, small intestine bacterial overgrowth, nausea and vomiting Genitourinary 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: UTI, Recurrent 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 OB/BYN History: endometrial thickening, atrophic vaginitis, vaginal pruritis, pelvic pain Musculoskeletal 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: Back Pain, Chronic, Other (See Below) Other Musculoskeletal History: spinal stinosis repair Neurological 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: Migraines Other Neuro History: 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, increasing headaches/head pains Psychiatric 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: Anxiety, Depression, Other (See Below) Other Psychiatric History: insomnia Endocrine/Metabolic 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: Other (See Below) Other Endocrine/Metabolic History: inappropriate ADH production Hematologic 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: Anemia Other Hematologic History: hyponatremia Immunologic 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: None Oncologic (Cancer) 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: None Dermatologic 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: Other (See Below) Other Dermatologic History: pruritis, seborrheic keratosis - Past Surgical History Female Surgical 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: None Neurological Surgical 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: None Other Musculoskeletal Surgeries/Procedures:: right hip replacement 7 years ago Oncologic Surgical 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: None Dermatological Surgical 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: None Social & Family History - Family History Family Medical History: Noncontributory Cardiac: Reports: CAD Oncologic: Reports: Breast - Tobacco Use Smoking Status *Q: Former Smoker Used Tobacco, but Quit: Yes Month/Year Tobacco Last Used: 30 - Caffeine Use Caffeine Use: Reports: Coffee, Tea Caffeine Use Comment: 2 cups/day - Recreational Drug Use Recreational Drug Use: No - Living Situation & Occupation Living situation: Reports: Occupation: Retired H&P Review of Systems - Review of Systems: Review Of Systems: See Below General: Reports: No Symptoms HEENT: Reports: No Symptoms Pulmonary: Reports: No Symptoms Cardiovascular: Reports: No Symptoms Gastrointestinal: Reports: No Symptoms, Abdominal Pain Genitourinary: Reports: No Symptoms Musculoskeletal: Reports: Arm Pain Skin: Reports: No Symptoms Psychiatric: Reports: No Symptoms Neurological: Reports: No Symptoms Hematologic/Lymphatic: Reports: No Symptoms Exam - Exam Exam: See Below - Vital Signs Vital Signs: Last Vital Signs Temp 36.2 C 08/22/19 14:34 Pulse 58 L 08/22/19 14:34 Resp 20 08/22/19 14:34 BP 102/62 08/22/19 14:34 Pulse Ox 98 08/22/19 14:34 Weight: 61.689 kg - Exam General: Alert, Oriented, 4 HEENT: PERRLA, Hearing Intact, Mucosa Moist & Pella, Nares Patent, Normal Nasal Septum, Posterior Pharynx Clear, Conjunctiva Clear, EOMI, EACs Clear, TMs Clear Neck: Supple, Trachea Midline, 2 Lungs: Clear to Auscultation, Normal Respiratory Effort Cardiovascular: Regular Rate, Regular Rhythm, Irregular Rhythm GI/Abdominal Exam: Normal Bowel Sounds, Soft, Non-Tender, No Organomegaly, No Distention, No Abnormal Bruit, No Mass, Pelvis Stable (Female) Exam: Deferred. No: Normal External Exam, Normal Speculum Exam, Normal Bimanual Exam Rectal (Female) Exam: Normal Exam, Normal Rectal Tone Back Exam: Normal Inspection, Full Range of Motion, NT Extremities: Normal Inspection, Normal Range of Motion, Non-Tender, No Pedal Edema, Normal Capillary Refill Peripheral Pulses: 1+: Carotid (L), Carotid (R) Skin: Warm, Dry, Intact Neurological: Cranial Nerves Intact, Reflexes Equal Bilateral Neuro Extensive - Mental Status: Alert, Oriented x3, Normal Mood/Affect, Normal Cognition Neuro Extensive - Motor, Sensory, Reflexes: CN II-XII Intact, Normal Gait, Normal Reflexes Psychiatric: Alert, Normal Affect, Normal Mood Physical Exam Comments:: left humurus in sling and mobility hurts in all planes Sepsis Event Note - Evaluation Sepsis Screening Result: No Definite Risk - Focused Exam Vital Signs: Vital Signs Temp Pulse Resp BP Pulse Ox 08/22/19 14:34 36.2 C 58 L 20 102/62 98 08/22/19 09:56 36.8 C 82 16 150/63 H 96 Date Exam was Performed: 08/23/19 Time Exam was Performed: 09:41 - Problem List (1) Anticoagulation adequate SNOMED Code(s): 493814919, 829277446 ICD Code: Z79.01 - CORRECTIONAL MEDICINE PHYSICIAN (CURRENT) USE OF ANTICOAGULANTS Status: Acute Priority: Medium Current Visit: Yes Onset Date: ~08/22/19 Problem Details: def. care to be determined and on anticoagualtion . support and sling favored sec to age and bleeding and complication risk (2) Closed fracture of left proximal humerus SNOMED Code(s): 33871843 ICD Code: S42.202A - UNSP FRACTURE OF UPPER END OF LEFT HUMERUS, INIT FOR CLOS FX Status: Acute Priority: Medium Current Visit: Yes Qualifiers: Encounter type: initial encounter Fracture morphology: other fracture Fracture alignment: nondisplaced Qualified Code(s): S42.295A - Other nondisplaced fracture of upper end of left humerus, initial encounter for closed fracture (3) Abdominal pain SNOMED Code(s): 42891313 ICD Code: R10.9 - UNSPECIFIED ABDOMINAL PAIN Status: Acute Priority: Medium Current Visit: No Onset Date: ~08/22/19 Problem Details: quit ppi and c/o of nausea and no belching and epigastric pain inimal (4) COPD (chronic obstructive pulmonary disease) SNOMED Code(s): 48433196 ICD Code: J44.9 - CHRONIC OBSTRUCTIVE PULMONARY DISEASE, UNSPECIFIED Status: Acute Priority: Medium Current Visit: No Onset Date: ~08/22/19 Qualifiers: COPD type: unspecified COPD Qualified Code(s): J44.9 - Chronic obstructive pulmonary disease, unspecified (5) Cardiomegaly SNOMED Code(s): 1285113 ICD Code: I51.7 - CARDIOMEGALY Status: Acute Priority: Medium Current Visit: No Onset Date: ~08/22/19 Problem Details: long standing hx of lvh with hypertension but denies any chest pain. mild juárez Problem List Initiated/Reviewed/Updated: Yes Orders Last 24hrs: Active Orders 24 hr Category Date Time Status Patient Status [ADT] Routine ADT 08/22/19 13:10 Active Durable Medical Equipment for Discharge [DME for Oth 08/22/19 11:17 Ordered Discharge] [COMM] Stat Assessment/Plan Comment:: admit observation. left prox humurus fx, pain control poor and requiring narcotics.sling and support. 2) hypertensive cv/ disease with lvh / bp elavated but pain may be driving up . 3)anxiety suspect mild cog issues but no features of advanced dementia .lives alone cannot take care of herself. 4) multiple falls.hsx of mild memory problems and imbalance and recent left hip replacement with ongoing balance problems pt and ot consulted and home health and home o.t eval with cog. eval recommended. 5)osteoporosis patient quit prolea on her own . 6)copd patient quit smoking i elder but >40 year pac hx. not sure if any other problems and would get pft.
[2019-08-22] MEDS: Acetaminophen 325 MG Tab PO PRN (16:13)
[2019-08-22] MEDS: Acetaminophen/HYDROcodone 325-5 MG Tab PO PRN (18:01)
[2019-08-23] MEDS: Acetaminophen/HYDROcodone 325-5 MG Tab PO PRN ×2 (00:57→08:43)
[2019-08-23] MEDS ORDERED: Sennosides 8.6 MG Tab PO PRN (10:14)
--- NOTE | 2019-08-23 11:33 | PCM.PN ---
- General Info Date of Service: 08/23/19 Admission Dx/Problem (Free Text): Admission Diagnosis/Problem Admission Diagnosis/Problem Fracture of humerus/unable to care for self Functional Status: Reports: Pain Controlled, Tolerating Diet, Ambulating, Urinating, Incentive Spirometry. Denies: New Symptoms - Review of Systems General: Reports: No Symptoms, Weakness. Denies: Fever, Fatigue, Malaise, Chills HEENT: Reports: No Symptoms. Denies: Headaches, Sore Throat Pulmonary: Reports: No Symptoms. Denies: Shortness of Breath, Pleuritic Chest Pain, Cough, Sputum, Hemoptysis, Wheezing Cardiovascular: Reports: No Symptoms. Denies: Chest Pain, Palpitations, Dyspnea on Exertion, Edema Gastrointestinal: Reports: No Symptoms. Denies: Abdominal Pain, Constipation, Diarrhea, Nausea, Vomiting Genitourinary: Reports: No Symptoms. Denies: Pain Musculoskeletal: Reports: Shoulder Pain (left ) Skin: Reports: No Symptoms. Denies: Cyanosis Neurological: Reports: No Symptoms, Difficulty Walking, Weakness, Gait Disturbance. Denies: Confusion, Numbness, Tingling Psychiatric: Reports: No Symptoms - Patient Data Vitals - Most Recent: Last Vital Signs Temp 98 F 08/23/19 07:24 Pulse 58 L 08/23/19 07:24 Resp 14 08/23/19 07:24 BP 133/63 08/23/19 07:24 Pulse Ox 93 L 08/23/19 07:24 Weight - Most Recent: 136 lb I&O - Last 24 Hours: Intake & Output 08/22/19 08/23/19 08/23/19 22:59 06:59 14:59 Intake Total 180 500 180 Balance 180 500 180 Lab Results Last 24 Hours: Laboratory Results - last 24 hr 08/23/19 08/23/19 08/23/19 Range/Units 10:30 10:30 10:30 WBC 8.60 (3.98-10.04) K/mm3 RBC 3.19 L (3.98-5.22) M/mm3 Hgb 10.5 L (11.2-15.7) gm/dl Hct 32.8 L (34.1-44.9) % MCV 102.8 H (79.4-94.8) fl MCH 32.9 H (25.6-32.2) pg MCHC 32.0 L (32.2-35.5) g/dl RDW Std Deviation 48.8 H (36.4-46.3) fL Plt Count 204 (182-369) K/mm3 MPV 9.9 (9.4-12.3) fl Neut % (Auto) 76.0 H (34.0-71.1) % Lymph % (Auto) 10.8 L (19.3-51.7) % Wilcox % (Auto) 12.9 H (4.7-12.5) % Eos % (Auto) 0 L (0.7-5.8) Baso % (Auto) 0.1 (0.1-1.2) % Neut # (Auto) 6.53 H (1.56-6.13) K/mm3 Lymph # (Auto) 0.93 L (1.18-3.74) K/mm3 Wilcox # (Auto) 1.11 H (0.24-0.36) K/mm3 Eos # (Auto) 0.00 L (0.04-0.36) K/mm3 Baso # (Auto) 0.01 (0.01-0.08) K/mm3 Sodium 132 L (136-145) mEq/L Potassium 3.6 (3.5-5.1) mEq/L Chloride 96 L (98-107) mEq/L Carbon Dioxide 29 (21-32) mEq/L Anion Gap 10.6 (5-15) BUN 15 (7-18) mg/dL Creatinine 0.7 (0.55-1.02) mg/dL Est Cr Clr Drug Dosing 49.99 mL/min Estimated GFR (MDRD) > 60 (>60) mL/min BUN/Creatinine Ratio 21.4 H (14-18) Glucose 140 H (83-115) mg/dL Calcium 8.7 (8.5-10.1) mg/dL Total Bilirubin 0.9 (0.2-1.0) mg/dL AST 18 (15-37) U/L ALT 20 (14-59) U/L Alkaline Phosphatase 74 (46-116) U/L Total Protein 5.9 L (6.4-8.2) g/dl Albumin 3.0 L (3.4-5.0) g/dl Globulin 2.9 gm/dL Albumin/Globulin Ratio 1.0 (1-2) TSH 3rd Generation 6.318 H (0.358-3.74) uIU/mL Med Orders - Current: Current Medications Acetaminophen (Tylenol) 650 mg PO Q4H PRN PRN Reason: Pain (Mild 1-3)/fever Last Admin: 08/22/19 16:13 Dose: 650 mg Documented by: Hydrocodone Bitart/Acetaminophen ([place] 325-5 Mg) 2 tab PO Q6H PRN PRN Reason: Pain (moderate 4-6) Last Admin: 08/23/19 08:43 Dose: 2 tab Documented by: Amlodipine Besylate (Norvasc) 10 mg PO DAILY [facility] Cholecalciferol (Vitamin D3) 5,000 unit PO DAILY [facility] Duloxetine HCl (Cymbalta) 20 mg PO DAILY [facility] Losartan Potassium (Cozaar) 50 mg PO QAM [facility] Metoprolol Tartrate (Lopressor) 100 mg PO BID [facility] Non-Formulary Medication (Rosuvastatin) 5 mg PO BEDTIME [facility] Senna (Senna) 8.6 mg PO DAILY PRN PRN Reason: Constipation Senna/Docusate Sodium (Senna Plus) 2 tab PO BEDTIME [facility] Discontinued Medications Hydromorphone HCl (Dilaudid) 0.25 mg IVPUSH ONETIME ONE Stop: 08/22/19 11:39 Last Admin: 08/22/19 11:45 Dose: 0.25 mg Documented by: - Exam Quality Assessment: DVT Prophylaxis. No: Supplemental Oxygen, Urine Catheter General: Alert, Oriented, Cooperative, No Acute Distress HEENT: Pupils Equal, Pupils Reactive, Mucous Membr. Moist/[place] Neck: Supple, Trachea Midline Lungs: Clear to Auscultation, Normal Respiratory Effort Cardiovascular: Regular Rate, Regular Rhythm, Other (Pacemaker) GI/Abdominal Exam: Normal Bowel Sounds, Soft, Non-Tender, No Distention (Female) Exam: Deferred Extremities: No Pedal Edema, Arm Pain (Left shoulder), Limited Range of Motion (left arm 2/2 pain), Other (Very large hemotoma on left biceps region ) Peripheral Pulses: 2+: Radial (L), Radial (R), Dorsalis Pedis (L), Dorsalis Pedis (R) Skin: Warm, Dry, Intact Neurological: No New Focal Deficit Psy/Mental Status: Alert, Normal Affect, Normal Mood Sepsis Event Note - Evaluation Sepsis Screening Result: No Definite Risk - Focused Exam Vital Signs: Vital Signs Temp Pulse Resp BP Pulse Ox 08/23/19 07:24 98 F 58 L 14 133/63 93 L 08/23/19 03:00 97.1 F 60 16 122/70 100 Date Exam was Performed: 08/23/19 Time Exam was Performed: 13:04 - Problem List & Annotations (1) Closed fracture of left proximal humerus SNOMED Code(s): 38568389 Code(s): S42.202A - UNSP FRACTURE OF UPPER END OF LEFT HUMERUS, INIT FOR CLOS FX Status: Acute Priority: High Current Visit: Yes Qualifiers: Encounter type: initial encounter Fracture morphology: other fracture Fracture alignment: nondisplaced Qualified Code(s): S42.295A - Other nondisplaced fracture of upper end of left humerus, initial encounter for closed fracture (2) Fall SNOMED Code(s): 4042771, 912109591 Code(s): W19.XXXA - UNSPECIFIED FALL, INITIAL ENCOUNTER Status: Acute Priority: High Current Visit: Yes Qualifiers: Encounter type: initial encounter Qualified Code(s): W19.XXXA - Unspecified fall, initial encounter (3) Anemia SNOMED Code(s): 488190632 Code(s): D64.9 - ANEMIA, UNSPECIFIED Status: Acute Priority: Medium Current Visit: Yes Qualifiers: Anemia type: unspecified type Qualified Code(s): D64.9 - Anemia, unspecified (4) Elevated TSH SNOMED Code(s): 271437089 Code(s): R79.89 - OTHER SPECIFIED ABNORMAL FINDINGS OF BLOOD CHEMISTRY Status: Acute Current Visit: Yes (5) Anticoagulation adequate SNOMED Code(s): 084020812, 409373842 Code(s): Z79.01 - COMPRESSOR BATTERY PELLETS (CURRENT) USE OF ANTICOAGULANTS Status: Acute Priority: Medium Current Visit: Yes Onset Date: ~08/22/19 Annotation/Comment:: def. care to be determined and on anticoagualtion . support and sling favored sec to age and bleeding and complication risk (6) Cardiomegaly SNOMED Code(s): 1222668 Code(s): I51.7 - CARDIOMEGALY Status: Acute Priority: Medium Current Visit: No Onset Date: ~08/22/19 Annotation/Comment:: long standing hx of lvh with hypertension but denies any chest pain. mild juárez (7) Chronic anticoagulation SNOMED Code(s): 634154334 Code(s): Z79.01 - SNF (CURRENT) USE OF ANTICOAGULANTS Status: Acute Priority: Medium Current Visit: No (8) Chronic cough SNOMED Code(s): 29826303 Code(s): R05 - COUGH Status: Acute Priority: Low Current Visit: No (9) Depression SNOMED Code(s): 95629633 Code(s): F32.9 - MAJOR DEPRESSIVE DISORDER, SINGLE EPISODE, UNSPECIFIED Status: Acute Priority: Low Current Visit: No Qualifiers: Depression Type: unspecified Qualified Code(s): F32.9 - Major depressive disorder, single episode, unspecified (10) Diastolic dysfunction SNOMED Code(s): 8675925 Code(s): I51.89 - OTHER ILL-DEFINED HEART DISEASES Status: Chronic Priority: Low Current Visit: No (11) Diverticulosis SNOMED Code(s): 712670434 Code(s): K57.90 - DVRTCLOS OF INTEST, PART UNSP, W/O PERF OR ABSCESS W/O BLEED Status: Chronic Priority: Low Current Visit: No (12) Dizzy spells SNOMED Code(s): 087542490 Code(s): R42 - DIZZINESS AND GIDDINESS Status: Chronic Priority: Low Current Visit: No (13) GERD (gastroesophageal reflux disease) SNOMED Code(s): 154515466 Code(s): K21.9 - GASTRO-ESOPHAGEAL REFLUX DISEASE WITHOUT ESOPHAGITIS S tatus: Chronic Priority: Low Current Visit: No Qualifiers: Esophagitis presence: esophagitis presence not specified Qualified Code(s): K21.9 - Gastro-esophageal reflux disease without esophagitis (14) HLD (hyperlipidemia) SNOMED Code(s): 17568606 Code(s): E78.5 - HYPERLIPIDEMIA, UNSPECIFIED Status: Chronic Priority: Low Current Visit: No Qualifiers: Hyperlipidemia type: unspecified Qualified Code(s): E78.5 - Hyperlipidemia, unspecified (15) HTN (hypertension) SNOMED Code(s): 89969198 Code(s): I10 - ESSENTIAL (PRIMARY) HYPERTENSION Status: Chronic Priority: Medium Current Visit: No Qualifiers: Hypertension type: unspecified Qualified Code(s): I10 - Essential (primary) hypertension (16) History of subdural hematoma (post traumatic) SNOMED Code(s): 451114673, 831341283 Code(s): Z87.828 - PERSONAL HISTORY OF OTH (HEALED) PHYSICAL INJURY AND TRAUMA Status: Chronic Priority: Low Current Visit: No (17) Hyponatremia SNOMED Code(s): 59012263 Code(s): E87.1 - HYPO-OSMOLALITY AND HYPONATREMIA Status: Acute Priority: High Current Visit: Yes (18) IBS (irritable bowel syndrome) SNOMED Code(s): 38945561 Code(s): K58.9 - IRRITABLE BOWEL SYNDROME WITHOUT DIARRHEA Status: Chronic Priority: Low Current Visit: No Qualifiers: Irritable bowel syndrome type: unspecified Qualified Code(s): K58.9 - Irritable bowel syndrome without diarrhea (19) Insomnia SNOMED Code(s): 850605485 Code(s): G47.00 - INSOMNIA, UNSPECIFIED Status: Chronic Priority: Low Current Visit: No Qualifiers: Insomnia type: unspecified Qualified Code(s): G47.00 - Insomnia, unspecified (20) Mitral regurgitation SNOMED Code(s): 26364891 Code(s): I34.0 - NONRHEUMATIC MITRAL (VALVE) INSUFFICIENCY Status: Chronic Priority: Medium Current Visit: No Qualifiers: Cardiac valve disease etiology: etiology unspecified Qualified Code(s): I34.0 - Nonrheumatic mitral (valve) insufficiency (21) Mitral valve prolapse SNOMED Code(s): 231603545 Code(s): I34.1 - NONRHEUMATIC MITRAL (VALVE) PROLAPSE Status: Chronic Priority: Medium Current Visit: No (22) Osteoarthritis SNOMED Code(s): 432411113 Code(s): M19.90 - UNSPECIFIED OSTEOARTHRITIS, UNSPECIFIED SITE Status: Chronic Priority: Low Current Visit: No Qualifiers: Osteoarthritis location: multiple joints Osteoarthritis type: unspecified Qualified Code(s): M15.9 - Polyosteoarthritis, unspecified (23) Osteoporosis SNOMED Code(s): 56326107 Code(s): M81.0 - AGE-RELATED OSTEOPOROSIS W/O CURRENT PATHOLOGICAL FRACTURE Status: Acute Priority: High Current Visit: Yes Qualifiers: Osteoporosis type: unspecified Presence of current pathological fracture: unspecified Qualified Code(s): M81.0 - Age-related osteoporosis without current pathological fracture (24) Pacemaker SNOMED Code(s): 771732113 Code(s): Z95.0 - PRESENCE OF CARDIAC PACEMAKER Status: Chronic Priority: Medium Current Visit: No (25) Paroxysmal A-fib SNOMED Code(s): 683342912 Code(s): I48.0 - PAROXYSMAL ATRIAL FIBRILLATION Status: Chronic Priority: Medium Current Visit: No (26) Peripheral sensory neuropathy SNOMED Code(s): 06286583 Code(s): G62.9 - POLYNEUROPATHY, UNSPECIFIED Status: Chronic Priority: Medium Current Visit: No (27) Polymyalgia rheumatica SNOMED Code(s): 76151766 Code(s): M35.3 - POLYMYALGIA RHEUMATICA Status: Chronic Priority: Low Current Visit: No (28) Recurrent UTI SNOMED Code(s): 607051986 Code(s): N39.0 - URINARY TRACT INFECTION, SITE NOT SPECIFIED Status: Chronic Priority: Low Current Visit: No (29) SIADH (syndrome of inappropriate ADH production) SNOMED Code(s): 91794846 Code(s): E22.2 - SYNDROME OF INAPPROPRIATE SECRETION OF ANTIDIURETIC HORMONE Status: Chronic Priority: Medium Current Visit: No (30) Seborrheic keratoses SNOMED Code(s): 833588441 Code(s): L82.1 - OTHER SEBORRHEIC KERATOSIS Status: Chronic Priority: Low Current Visit: No (31) Sick sinus syndrome SNOMED Code(s): 02126875 Code(s): I49.5 - SICK SINUS SYNDROME Status: Chronic Priority: Medium Current Visit: No (32) Small intestine disorder SNOMED Code(s): 243793700 Code(s): K63.9 - DISEASE OF INTESTINE, UNSPECIFIED Status: Chronic Priority: Medium Current Visit: No (33) TMJ, Temporomandibular [id number] syndrome, Myofascial Pain SNOMED Code(s): 655956687 Code(s): M26.62 - ARTHRALGIA OF TEMPOROMANDIBULAR JOINT * DO NOT USE * Status: Chronic Priority: Low Current Visit: No (34) Trigeminal neuralgia SNOMED Code(s): 18023192 Code(s): G50.0 - TRIGEMINAL NEURALGIA Status: Chronic Priority: Medium Current Visit: No (35) Vitamin D deficiency SNOMED Code(s): 89735088 Code(s): E55.9 - VITAMIN D DEFICIENCY, UNSPECIFIED Status: Chronic Priority: Low Current Visit: No (36) Anxiety SNOMED Code(s): 31942951 Code(s): F41.9 - ANXIETY DISORDER, UNSPECIFIED Status: Chronic Priority: Low Current Visit: No (37) COPD (chronic obstructive pulmonary disease) SNOMED Code(s): 85120297 Code(s): J44.9 - CHRONIC OBSTRUCTIVE PULMONARY DISEASE, UNSPECIFIED Status: Chronic Priority: Medium Current Visit: No Onset Date: ~08/22/19 Qualifiers: COPD type: unspecified COPD Qualified Code(s): J44.9 - Chronic obstructive pulmonary disease, unspecified (38) Subclinical hyperthyroidism SNOMED Code(s): 269846335 Code(s): E05.90 - THYROTOXICOSIS, UNSP WITHOUT THYROTOXIC CRISIS OR STORM Status: Acute Priority: Low Current Visit: Yes (39) Hematoma of arm SNOMED Code(s): 47112750 Code(s): S40.029A - CONTUSION OF UNSPECIFIED UPPER ARM, INITIAL ENCOUNTER Status: Acute Priority: High Current Visit: Yes Qualifiers: Encounter type: initial encounter Laterality: left Qualified Code(s): S40.022A - Contusion of left upper arm, initial encounter (40) Hypomagnesemia SNOMED Code(s): 201123633 Code(s): E83.42 - HYPOMAGNESEMIA Status: Acute Priority: High Current Visit: Yes - Problem List Review Problem List Initiated/Reviewed/Updated: Yes - My Orders Last 24 Hours: My Active Orders 08/23/19 10:14 Sennosides [Senna] 8.6 mg PO DAILY PRN 08/23/19 10:15 DULoxetine [Cymbalta] 20 mg PO DAILY Metoprolol Tartrate [Lopressor] 100 mg PO BID 08/23/19 10:17 RT Incentive Spirometry [RC] ASDIRECTED 08/23/19 10:19 Antiembolic Devices [RC] 09,21 SCD [Sequential Compression Device] [OM.PC] Routine 08/23/19 10:21 Communication Order [RC] ASDIRECTED Up to Chair [RC] ASDIRECTED 08/23/19 21:00 Docusate Sodium/Sennosides [Senna Plus] 2 tab PO BEDTIME Rosuvastatin 5 mg PO BEDTIME 08/24/19 05:11 MAGNESIUM [CHEM] Routine 08/24/19 08:00 Losartan [Cozaar] 50 mg PO QAM 08/24/19 09:00 Cholecalciferol (Vitamin D3) [Vitamin D3] 5,000 unit PO DAILY amLODIPine [Norvasc] 10 mg PO DAILY - Plan Plan:: Closed fracture of left proximal humerus Fall Anemia Anticoagulation adequate Chronic anticoagulation Dizzy spells History of subdural hematoma (post traumatic) Osteoarthritis Osteoporosis Hematoma of arm Fell at home after tripping while attempting to dump home commode. Reports she did hit head. Recent FABI on 04/08/[address] negative Non-displaced proximal humerus fracture noted on X-ray Sling and swathe in place On home Eliquis ED provider consulted [facility] Dr. Gamino who recommended sling/swathe and f/u in 1-2 weeks PLAN - Sling and swathe off when lying in bed but on when sleeping, ambulating, or in chair - Pain medications as directed - PT/OT - CM consult - Hold home Eliquis due to significant left arm hematoma Hyponatremia SIADH (syndrome of inappropriate ADH production) History of detention hyponatremia PRN standing sodium chloride order at home Sodium 132 PLAN - Order home NaCl due to observation status - Monitor Subclinical hyperthyroidism Elevated TSH TSH 6.318 Was WNL on 07/14/19 T4 0.99 PLAN - PCP to monitor Cardiomegaly Diastolic dysfunction HLD (hyperlipidemia) HTN (hypertension) Mitral regurgitation Mitral valve prolapse Pacemaker Paroxysmal A-fib Sick sinus syndrome Longstanding cardiac history No concerns currently On home metoprolol, Cozaar, Crestor, and Norvasc PLAN - Continue home medications - No need for telemetry currently COPD (chronic obstructive pulmonary disease) History of detention smoking No acute concerns PLAN - RT consult - PRN duonebs - May benefit from outpatient PFT Chronic cough No concerns currently PLAN - Monitor Depression Anxiety Insomnia Vitamin D deficiency Hypomagnesemia On home Cymbalta and vitamin D supplementation Magnesium 1.7 PLAN - Continue home medications - Check vitamin D level - Supplement magnesium Diverticulosis GERD (gastroesophageal reflux disease) Small intestine disorder IBS (irritable bowel syndrome) No concerns currently Reports she stopped taking her PPI Complaining of epigastric pain PLAN - Restart PPI - Monitor Peripheral sensory neuropathy Polymyalgia rheumatica TMJ, Temporomandibular qvkow-rowp-nzhzgroewzh syndrome, Myofascial Pain Trigeminal neuralgia No current concerns Recurrent UTI Seborrheic keratoses No concerns currently PLAN - Continue to monitor DVT prophylaxis: Hold home Eliquis and start SCDs GI prophylaxis: Not indicated - stopped taking home PPI Code status: DNR/DNI PCP: Jennifer Hayes PA-C Social: Lives in [place]. Plans to have family assist her at home when discharged. Disposition: Patient had difficulty with ambulation in ED after sling/swathe applied. Will be admitted observation status for PT/OT and further workup.
[2019-08-23] MEDS ORDERED: SODIUM CHLORIDE 1000 MG PO SCH (11:45)
[2019-08-23] MEDS ORDERED: [UNRECOGNIZED DRUG - OTHER] PO SCH (11:45)
[2019-08-23] MEDS ORDERED: Albuterol/Ipratropium 3.0-0.5 MG/3 ML Neb Soln NEB PRN (12:08)
[2019-08-23] MEDS ORDERED: Magnesium Sulfate/Water 2 GM in Premix Bag 1 BAG IV ONE (12:17)
[2019-08-23] MEDS ORDERED: Ondansetron 4 MG Tab.DIS PO PRN (12:36)
[2019-08-23] MEDS ORDERED: Simethicone 80 MG Tab.Chew PO PRN (13:05)
[2019-08-23] MEDS: Magnesium Oxide 400 MG Tab PO SCH ×2 (13:25→20:04)
[2019-08-23] MEDS: Pantoprazole 40 MG Tab.CR PO SCH (13:26)
[2019-08-23] MEDS: Acetaminophen 325 MG Tab PO PRN ×2 (15:07→20:12)
[2019-08-23] MEDS ORDERED: Alum Hydrox/Mag Hydrox/Simeth 30 ML, Lidocaine 2% 15 ML PO ONE ×2 (19:39)
[2019-08-23] MEDS: Metoprolol Tartrate 100 MG Tab PO SCH (20:03)
[2019-08-23] MEDS ORDERED: Rosuvastatin 10 MG Tab PO SCH (21:00)
[2019-08-24] MEDS: Acetaminophen 325 MG Tab PO PRN ×3 (00:43→11:28)
[2019-08-24] MEDS: Pantoprazole 40 MG Tab.CR PO SCH (05:42)
[2019-08-24] MEDS ORDERED: Losartan 100 MG Tab PO SCH (08:00)
[2019-08-24] MEDS: Magnesium Oxide 400 MG Tab PO SCH (08:16)
[2019-08-24 08:20] VITALS: PULSE 58
[2019-08-24] MEDS ORDERED: Cholecalciferol (Vitamin D3) 5,000 UNIT Tab PO SCH (09:00)
[2019-08-24] MEDS ORDERED: DULoxetine 20 MG Cap PO SCH (09:00)
[2019-08-24] MEDS ORDERED: amLODIPine 10 MG Tab PO SCH (09:00)
[2019-08-24] MEDS: Metoprolol Tartrate 100 MG Tab PO SCH (10:34)
[2019-08-24 10:35] VITALS: BP 99/39
--- NOTE | 2019-08-24 11:11 | PCM.DCSUM1 ---
Discharge Summary - Hospital Course Free Text/Narrative:: Admission History & Physical Patient Name: MIRIAM GLORIA Date of : 1930 Patient Status: Observation Attending Provider: Harshal Estes Date: 08/22/19 15:25 Initialization Date: 08/22/19 15:25 H&P History of Present Illness - General Date of Service: 08/22/19 Admit Problem/Dx: Admission Diagnosis/Problem Admission Diagnosis/Problem Fracture of humerus/unable to care for self Source of Information: Patient, EMS History Limitations: Reports: No Limitations - History of Present Illness Initial Comments - Free Text/Narative: 08/22/19 89 year old female who fell at home and fractured left humerus. placed in sling and definitive ortho care to be determined. she lives alone with no local family and cannot return home without help . hypertension and previous hip surgery and hx of osteoporosis and bilateral thr ros anticoagulation for paf. balance strength good .cognition and memory good. p.e. irreg reg rhythm. left humerous pain with movement in sling. mod swelling nad bruise prox. lab wnl. ekg pending. 'xray non comminuted /non displaced prox hum fx. assess fracture l humerus. complicated by hematoma and pain and inability f to care for self. plan admit pain control / home going issues to be discussed with family /patient Onset of Symptoms: Reports: Today Location: Reports: Upper Extremity, Left Quality: Reports: Sharp, Stabbing Severity: Severe Improves with: Reports: Immobilization Worsens with: Reports: Movement Associated Symptoms: Reports: No Other Symptoms Left Shoulder Pain Score (Numeric/FACES): 4 - Related Data Allergies/Adverse Reactions: Allergies Allergy/AdvReac Type Severity Reaction Status Date / Time Penicillins Allergy Rash Verified 08/22/19 10:00 Home Medications: Home Meds Losartan Potassium 50 mg PO QAM 08/27/14 [History] Triamcinolone Acetonide [Triamcinolone Acetonide 0.1% Crm] 1 dose TOP ASDIRECTED PRN 01/13/18 [History] Apixaban [Eliquis] 5 mg PO BID 04/03/19 [History] Cholecalciferol (Vitamin D3) [Vitamin D3] 5,000 unit PO DAILY 04/03/19 [History] Fluticasone Propionate [Flonase] 1 dose NASBOTH BID PRN 04/03/19 [History] Sodium Chloride 1,000 mg PO BID PRN 04/03/19 [History] amLODIPine Besylate [Amlodipine Besylate] 10 mg PO DAILY 04/03/19 [History] DULoxetine [Cymbalta] 20 mg PO DAILY 04/06/19 [History] Docusate Sodium/Sennosides [Senna Plus] 2 tab PO BEDTIME 04/06/19 [History] Loratadine 10 mg PO DAILY 04/06/19 [History] Metoprolol Tartrate 100 mg PO BID 04/06/19 [History] Rosuvastatin [Crestor] 5 mg PO BEDTIME 04/06/19 [History] Acetaminophen [Tylenol] 650 mg PO Q4H PRN tablet 04/08/19 [Rx] Pantoprazole [ProTONIX] 40 mg PO DAILY tab.cr 04/08/19 [Rx] bisacodyL [Dulcolax] 5 mg PO DAILY PRN tablet 04/08/19 [Rx] Cranberry 1 tab PO DAILY 08/22/19 [History] Ketotifen Fumarate [Zaditor] 1 drop EYEBOTH ASDIRECTED PRN 08/22/19 [History] Sennosides [Senna] 8.6 mg PO DAILY PRN 08/22/19 [History] Past Medical History HEENT 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: Hard of Hearing, Impaired Vision Other HEENT History: 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 approx 2008 Cardiovascular 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: Arrhythmia, Pacemaker Respiratory 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: Other (See Below) Other Respiratory History: cough Gastrointestinal 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: GERD Other Gastrointestinal History: bloating, small intestine bacterial overgrowth, nausea and vomiting Genitourinary 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: UTI, 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: Other OB/BYN History: endometrial thickening, atrophic vaginitis, vaginal pruritis, pelvic pain Musculoskeletal 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: Back Pain, Chronic, Other (See Below) Other Musculoskeletal History: spinal stinosis repair Neurological 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: Migraines Other Neuro History: 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 approx 2008, increasing headaches/head pains Psychiatric 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: Anxiety, Depression, Other (See Below) Other Psychiatric History: insomnia Endocrine/Metabolic 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: Other (See Below) Other Endocrine/Metabolic History: inappropriate ADH production Hematologic 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: Anemia Other Hematologic History: hyponatremia Immunologic 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: None Oncologic (Cancer) 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: None Dermatologic 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: Other (See Below) Other Dermatologic History: pruritis, seborrheic keratosis - Past Surgical History Female Surgical 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: None Neurological Surgical 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: None Other Musculoskeletal Surgeries/Procedures:: right hip replacement 7 years ago Oncologic Surgical 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: None Dermatological Surgical 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: None Social & Family History - Family History Family Medical History: Noncontributory Cardiac: Reports: CAD Oncologic: Reports: Breast - Tobacco Use Smoking Status *Q: Former Smoker Used Tobacco, but Quit: Yes Month/Year Tobacco Last Used: 30 - Caffeine Use Caffeine Use: Reports: Coffee, Tea Caffeine Use Comment: 2 cups/day - Recreational Drug Use Recreational Drug Use: No - Living Situation & Occupation Living situation: Reports: Occupation: Retired H&P Review of Systems - Review of Systems: Review Of Systems: See Below General: Reports: No Symptoms HEENT: Reports: No Symptoms Pulmonary: Reports: No Symptoms Cardiovascular: Reports: No Symptoms Gastrointestinal: Reports: No Symptoms, Abdominal Pain Genitourinary: Reports: No Symptoms Musculoskeletal: Reports: Arm Pain Skin: Reports: No Symptoms Psychiatric: Reports: No Symptoms Neurological: Reports: No Symptoms Hematologic/Lymphatic: Reports: No Symptoms Exam - Exam Exam: See Below - Vital Signs Vital Signs: Last Vital Signs Temp 36.2 C 08/22/19 14:34 Pulse 58 L 08/22/19 14:34 Resp 20 08/22/19 14:34 BP 102/62 08/22/19 14:34 Pulse Ox 98 08/22/19 14:34 Weight: 61.689 kg - Exam General: Alert, Oriented, 4 HEENT: PERRLA, Hearing Intact, Mucosa Moist & [place], Nares Patent, Normal Nasal Septum, Posterior Pharynx Clear, Conjunctiva Clear, EOMI, EACs Clear, TMs Clear Neck: Supple, Trachea Midline, 2 Lungs: Clear to Auscultation, Normal Respiratory Effort Cardiovascular: Regular Rate, Regular Rhythm, Irregular Rhythm GI/Abdominal Exam: Normal Bowel Sounds, Soft, Non-Tender, No Organomegaly, No Distention, No Abnormal Bruit, No Mass, Pelvis Stable (Female) Exam: Deferred. No: Normal External Exam, Normal Speculum Exam, Normal Bimanual Exam Rectal (Female) Exam: Normal Exam, Normal Rectal Tone Back Exam: Normal Inspection, Full Range of Motion, NT Extremities: Normal Inspection, Normal Range of Motion, Non-Tender, No Pedal Edema, Normal Capillary Refill Peripheral Pulses: 1+: Carotid (L), Carotid (R) Skin: Warm, Dry, Intact Neurological: Cranial Nerves Intact, Reflexes Equal Bilateral Neuro Extensive - Mental Status: Alert, Oriented x3, Normal Mood/Affect, Normal Cognition Neuro Extensive - Motor, Sensory, Reflexes: CN II-XII Intact, Normal Gait, Normal Reflexes Psychiatric: Alert, Normal Affect, Normal Mood Physical Exam Comments:: left humurus in sling and mobility hurts in all planes Sepsis Event Note - Evaluation Sepsis Screening Result: No Definite Risk - Focused Exam Vital Signs: Vital Signs Temp Pulse Resp BP Pulse Ox 08/22/19 14:34 36.2 C 58 L 20 102/62 98 08/22/19 09:56 36.8 C 82 16 150/63 H 96 Date Exam was Performed: 08/23/19 Time Exam was Performed: 09:41 - Problem List (1) Anticoagulation adequate SNOMED Code(s): 924724857, 459355072 ICD Code: Z79.01 - BUSINESS INTEGRATION MANAGER (CURRENT) USE OF ANTICOAGULANTS Status: Acute Priority: Medium Current Visit: Yes Onset Date: ~08/22/19 Problem Details: def. care to be determined and on anticoagualtion . support and sling favored sec to age and bleeding and complication risk (2) Closed fracture of left proximal humerus SNOMED Code(s): 42514943 ICD Code: S42.202A - UNSP FRACTURE OF UPPER END OF LEFT HUMERUS, INIT FOR CLOS FX Status: Acute Priority: Medium Current Visit: Yes Qualifiers: Encounter type: initial encounter Fracture morphology: other fracture Fracture alignment: nondisplaced Qualified Code(s): S42.295A - Other nondisplaced fracture of upper end of left humerus, initial encounter for closed fracture (3) Abdominal pain SNOMED Code(s): 63284409 ICD Code: R10.9 - UNSPECIFIED ABDOMINAL PAIN Status: Acute Priority: Medium Current Visit: No Onset Date: ~08/22/19 Problem Details: quit ppi and c/o of nausea and no belching and epigastric pain inimal (4) COPD (chronic obstructive pulmonary disease) SNOMED Code(s): 97915666 ICD Code: J44.9 - CHRONIC OBSTRUCTIVE PULMONARY DISEASE, UNSPECIFIED Status: Acute Priority: Medium Current Visit: No Onset Date: ~08/22/19 Qualifiers: COPD type: unspecified COPD Qualified Code(s): J44.9 - Chronic obstructive pulmonary disease, unspecified (5) Cardiomegaly SNOMED Code(s): 6039258 ICD Code: I51.7 - CARDIOMEGALY Status: Acute Priority: Medium Current Visit: No Onset Date: ~08/22/19 Problem Details: long standing hx of lvh with hypertension but denies any chest pain. mild juárez Problem List Initiated/Reviewed/Updated: Yes Orders Last 24hrs: Active Orders 24 hr Category Date Time Status Patient Status [ADT] Routine ADT 08/22/19 13:10 Active Durable Medical Equipment for Discharge [DME for Oth 08/22/19 11:17 Ordered Discharge] [COMM] Stat Assessment/Plan Comment:: admit observation. left prox humurus fx, pain control poor and requiring narcotics.sling and support. 2) hypertensive cv/ disease with lvh / bp elavated but pain may be driving up . 3)anxiety suspect mild cog issues but no features of advanced dementia .lives alone cannot take care of herself. 4) multiple falls.hsx of mild memory problems and imbalance and recent left hip replacement with ongoing balance problems pt and ot consulted and home health and home o.t eval with cog. eval recommended. 5)osteoporosis patient quit prolea on her own . 6)copd patient quit smoking i but >40 year pac hx. not sure if any other problems and would get pft. HPI Initial Comments: 08/24/19 afebrile vss rt humerus bruise 20 cm over distal arm and upper forearm on left. sensation intact/ strength intact for dorsi and plantar fexion of wrist and fingers. pulses good . no signs infection . pain with movement but in sling and properly positioned . assess 1/ humurus fracture left in sling and minimally displaced with hope for union with conservative treatment. 2// hypertension stable . in fact b.p meds held . 3// anticoagualtion held x 48 hours to allow bleeding to stop. 4// anemia mild drop to 11 and monitor signs of continued bleeding. 5// follow up primary care in 72 hours . 6// pain control good but narcotics upset her stomach and switched to tylenol and lido patch . prn narcaotic. 7// gastritis sec to narcotics and started pantoprazole . 8// hyponatremia stable and chronic and restart low dose na cloride tabs. dc home with home health/ home p.t a nd home ot home assessment . boh - Discharge Data Discharge Date: 08/24/19 Discharge Disposition: Home, Self-Care 01 Condition: Good - Referral to Home Health Date of Face to Face Encounter: 08/24/19 Reason for Homebound Status: patient homebound sec. to hum fracture and sling.she has hypotension anemia and hx of anticoagualtion being adjusted daily she needs home o.t assessment , home p.t for strengthening and protection of hum. fx. she needs nursing for med monitoring and education and managing meds and follow up treatments Primary Care Physician: Jennifer Hayes PA-C - Discharge Diagnosis/Problem(s) (1) Anticoagulation adequate SNOMED Code(s): 119305890, 402097383 ICD Code: Z79.01 - LONG-TERM (CURRENT) USE OF ANTICOAGULANTS Status: Acute Priority: Medium Current Visit: Yes Onset Date: ~08/22/19 Problem Details: def. care to be determined and on anticoagualtion . support and sling favored sec to age and bleeding and complication risk . anticoag held x 48 hours sec to extensive bruising and soft tissue injury (2) Closed fracture of left proximal humerus SNOMED Code(s): 76916031 ICD Code: S42.202A - UNSP FRACTURE OF UPPER END OF LEFT HUMERUS, INIT FOR CLOS FX Status: Acute Priority: High Current Visit: Yes Onset Date: ~08/22/19 Problem Details: extensive bruisiing and soft tissue injury . Qualifiers: Encounter type: initial encounter Fracture morphology: other fracture Fracture alignment: nondisplaced Qualified Code(s): S42.295A - Other nondisplaced fracture of upper end of left humerus, initial encounter for closed fracture (3) Abdominal pain SNOMED Code(s): 85724347 ICD Code: R10.9 - UNSPECIFIED ABDOMINAL PAIN Status: Acute Priority: Medium Current Visit: No Onset Date: ~08/22/19 Problem Details: quit ppi and c/o of nausea and no belching and epigastric pain . given gi cocktail with good results. pateint stated related to narcotics and wants to stop. discussed low dose fentanyl patch and lido gel (4) COPD (chronic obstructive pulmonary disease) SNOMED Code(s): 21669979 ICD Code: J44.9 - CHRONIC OBSTRUCTIVE PULMONARY DISEASE, UNSPECIFIED Status: Chronic Priority: Medium Current Visit: No Onset Date: ~08/22/19 Qualifiers: COPD type: unspecified COPD Qualified Code(s): J44.9 - Chronic obstructive pulmonary disease, unspecified (5) Cardiomegaly SNOMED Code(s): 3403611 ICD Code: I51.7 - CARDIOMEGALY Status: Acute Priority: Medium Current Visit: No Onset Date: ~08/22/19 Problem Details: long standing hx of lvh with hypertension but denies any chest pain. mild juárez (6) Anemia SNOMED Code(s): 998596187 ICD Code: D64.9 - ANEMIA, UNSPECIFIED Status: Acute Priority: Medium Current Visit: Yes Onset Date: ~08/24/19 Problem Details: recheck 72 hours Qualifiers: Anemia type: unspecified type Qualified Code(s): D64.9 - Anemia, unspecified (7) Elevated TSH SNOMED Code(s): 859296030 ICD Code: R79.89 - OTHER SPECIFIED ABNORMAL FINDINGS OF BLOOD CHEMISTRY Status: Acute Priority: Low Current Visit: Yes Onset Date: ~08/24/19 Problem Details: recheck but free t4 normal (8) Fall SNOMED Code(s): 4122476, 502671561 ICD Code: W19.XXXA - UNSPECIFIED FALL, INITIAL ENCOUNTER Status: Acute Priority: High Current Visit: Yes Problem Details: high fall riska nd needs home pt./home ot a nd home safety eval. Qualifiers: Encounter type: initial encounter Qualified Code(s): W19.XXXA - Unspecified fall, initial encounter (9) Hematoma of arm SNOMED Code(s): 92026939 ICD Code: S40.029A - CONTUSION OF UNSPECIFIED UPPER ARM, INITIAL ENCOUNTER Status: Acute Priority: High Current Visit: Yes Onset Date: ~08/22/19 Problem Details: stable large soft tissue hematoma around fracture sight . Qualifiers: Encounter type: initial encounter Laterality: left Qualified Code(s): S40.022A - Contusion of left upper arm, initial encounter (10) Hypomagnesemia SNOMED Code(s): 247476019 ICD Code: E83.42 - HYPOMAGNESEMIA Status: Acute Priority: Low Current Visit: Yes Problem Details: treated (11) Hyponatremia SNOMED Code(s): 46705899 ICD Code: E87.1 - HYPO-OSMOLALITY AND HYPONATREMIA Status: Acute Priority: Low Current Visit: Yes Onset Date: ~08/24/19 Problem Details: started salt tabs and is chronic sec to prev. subdural and no ms changes noted - Patient Summary/Data Consults: Consultations 08/22/19 15:47 Consult to Case Management/Human Resources Specialist [CONS] Routine OT Evaluation and Treatment [CONS] Routine PT Evaluation and Treatment [CONS] Routine Respiratory Care Assess and Treatment [CONS] Routine Hospital Course: 08/24/19 afebrile vss rt humerus bruise 20 cm over distal arm and upper forearm on left. sensation intact/ strength intact for dorsi and plantar fexion of wrist and fingers. pulses good . no signs infection . pain with movement but in sling and properly positioned . assess 1/ humurus fracture left in sling and minimally displaced with hope for union with conservative treatment. 2// hypertension stable . in fact b.p meds held . 3// anticoagualtion held x 48 hours to allow bleeding to stop. 4// anemia mild drop to 11 and monitor signs of continued bleeding. 5// follow up primary care in 72 hours . 6// pain control good but narcotics upset her stomach and switched to tylenol and lido patch . prn narcaotic. 7// gastritis sec to narcotics and started pantoprazole . 8// hyponatremia stable and chronic and restart low dose na cloride tabs. dc home with home health/ home p.t a nd home ot home assessment . - Patient Instructions Activity: Apply Ice, As Tolerated, Cough & Deep Breathe Driving: Do Not Drive Notify Provider of: Fever, Increased Pain, Swelling and Redness, Drainage, Nausea and/or Vomiting - Discharge Plan *PRESCRIPTION DRUG MONITORING PROGRAM REVIEWED*: No *COPY OF PRESCRIPTION DRUG MONITORING REPORT IN PATIENT GOYO: No Prescriptions/Med Rec: Acetaminophen/HYDROcodone [Belding 325-5 MG] 2 tab PO Q6H PRN #20 tablet PRN Reason: Pain (Moderate 4-6) Pantoprazole [ProTONIX] 40 mg PO DAILY 28 Days tab.cr Home Medications: Home Meds Triamcinolone Acetonide [Triamcinolone Acetonide 0.1% Crm] 1 dose TOP ASDIRECTED PRN 01/13/18 [History] Apixaban [Eliquis] 5 mg PO BID 04/03/19 [History] Cholecalciferol (Vitamin D3) [Vitamin D3] 5,000 unit PO DAILY 04/03/19 [History] Fluticasone Propionate [Flonase] 1 dose NASBOTH BID PRN 04/03/19 [History] Sodium Chloride 1,000 mg PO BID PRN 04/03/19 [History] DULoxetine [Cymbalta] 20 mg PO DAILY 04/06/19 [History] Docusate Sodium/Sennosides [Senna Plus] 2 tab PO BEDTIME 04/06/19 [History] Loratadine 10 mg PO DAILY 04/06/19 [History] Metoprolol Tartrate 100 mg PO BID 04/06/19 [History] Rosuvastatin [Crestor] 5 mg PO BEDTIME 04/06/19 [History] Pantoprazole [ProTONIX] 40 mg PO DAILY tab.cr 04/08/19 [Rx] Ketotifen Fumarate [Zaditor] 1 drop EYEBOTH ASDIRECTED PRN 08/22/19 [History] Acetaminophen [Tylenol] 650 mg PO Q4H PRN tablet 08/24/19 [Rx] Acetaminophen/HYDROcodone [Belding 325-5 MG] 2 tab PO Q6H PRN #20 tablet 08/24/19 [Rx] Cholecalciferol (Vitamin D3) [Vitamin D3] 5,000 unit PO DAILY tablet 08/24/19 [Rx] DULoxetine [Cymbalta] 20 mg PO DAILY cap 08/24/19 [Rx] Docusate Sodium/Sennosides [Senna Plus] 2 tab PO BEDTIME tablet 08/24/19 [Rx] Metoprolol Tartrate [Lopressor] 100 mg PO BID tablet 08/24/19 [Rx] Pantoprazole [ProTONIX] 40 mg PO DAILY 28 Days tab.cr 08/24/19 [Rx] Rosuvastatin [Crestor] 5 mg PO BEDTIME tablet 08/24/19 [Rx] Oxygen Therapy Mode: Room Air Patient Handouts: Humerus Fracture Treated With Immobilization, [id number], Osteoporosis, [id number] Referrals: Caleb Corbin MD [Physician] - 09/08/19 3:30 pm (Please follow up with Dr. Jaja hickey on September 07 at 3:30.) Jennifer Hayes PA-C [Primary Care Provider] - 08/31/19 10:00 am (Please follow up with [facility] on August 30 at 10:00.) - Discharge Summary/Plan Comment DC Time >30 min.: Yes Discharge Summary/Plan Comment: f/u danielito contreras in 72 hours - General Info Date of Service: 08/24/19 Admission Dx/Problem (Free Text: Admission Diagnosis/Problem Admission Diagnosis/Problem Fracture of humerus/unable to care for self Subjective Update: 08/24/19 afebrile vss rt humerus bruise 20 cm over distal arm and upper forearm on left. sensation intact/ strength intact for dorsi and plantar fexion of wrist and fingers. pulses good . no signs infection . pain with movement but in sling and properly positioned . assess 1/ humurus fracture left in sling and minimally displaced with hope for union with conservative treatment. 2// hypertension stable . in fact b.p meds held . 3// anticoagualtion held x 48 hours to allow bleeding to stop. 4// anemia mild drop to 11 and monitor signs of continued bleeding. 5// follow up primary care in 72 hours . 6// pain control good but narcotics upset her stomach and switched to tylenol and lido patch . prn narcaotic. 7// gastritis sec to narcotics and started pantoprazole . 8// hyponatremia stable and chronic and restart low dose na cloride tabs. dc home with home health/ home p.t a nd home ot home assessment . - Review of Systems General: Reports: No Symptoms HEENT: Reports: No Symptoms Pulmonary: Reports: No Symptoms Cardiovascular: Reports: No Symptoms Gastrointestinal: Reports: No Symptoms, Abdominal Pain Genitourinary: Reports: No Symptoms Musculoskeletal: Reports: No Symptoms, Arm Pain, Other (bruise 20 cm ) Skin: Reports: No Symptoms Neurological: Reports: No Symptoms Psychiatric: Reports: No Symptoms - Patient Data Vitals - Most Recent: Last Vital Signs Temp 36.9 C 08/24/19 08:07 Pulse 58 L 08/24/19 10:34 Resp 20 08/24/19 08:07 BP 99/39 L 08/24/19 10:34 Pulse Ox 95 08/24/19 08:07 Weight - Most Recent: 63.458 kg I&O - Last 24 hours: Intake & Output 08/23/19 08/24/19 08/24/19 22:59 06:59 14:59 Intake Total 980 700 30 Balance 980 700 30 Lab Results - Last 24 hrs: Laboratory Results - last 24 hr 08/23/19 08/23/19 08/23/19 Range/Units 10:05 10:30 10:30 WBC (3.98-10.04) K/mm3 RBC (3.98-5.22) M/mm3 Hgb (11.2-15.7) gm/dl Hct (34.1-44.9) % MCV (79.4-94.8) fl MCH (25.6-32.2) pg MCHC (32.2-35.5) g/dl RDW Std Deviation (36.4-46.3) fL Plt Count (182-369) K/mm3 MPV (9.4-12.3) fl Neut % (Auto) (34.0-71.1) % Lymph % (Auto) (19.3-51.7) % [place] % (Auto) (4.7-12.5) % Eos % (Auto) (0.7-5.8) Baso % (Auto) (0.1-1.2) % Neut # (Auto) (1.56-6.13) K/mm3 Lymph # (Auto) (1.18-3.74) K/mm3 [place] # (Auto) (0.24-0.36) K/mm3 Eos # (Auto) (0.04-0.36) K/mm3 Baso # (Auto) (0.01-0.08) K/mm3 Sodium 132 L (136-145) mEq/L Potassium 3.6 (3.5-5.1) mEq/L Chloride 96 L (98-107) mEq/L Carbon Dioxide 29 (21-32) mEq/L Anion Gap 10.6 (5-15) BUN 15 (7-18) mg/dL Creatinine 0.7 (0.55-1.02) mg/dL Est Cr Clr Drug Dosing 49.99 mL/min Estimated GFR (MDRD) > 60 (>60) mL/min BUN/Creatinine Ratio 21.4 H (14-18) Glucose 140 H (83-115) mg/dL Calcium 8.7 (8.5-10.1) mg/dL Magnesium (1.8-2.4) mg/dl Total Bilirubin 0.9 (0.2-1.0) mg/dL AST 18 (15-37) U/L ALT 20 (14-59) U/L Alkaline Phosphatase 74 (46-116) U/L Total Protein 5.9 L (6.4-8.2) g/dl Albumin 3.0 L (3.4-5.0) g/dl Globulin 2.9 gm/dL Albumin/Globulin Ratio 1.0 (1-2) Vitamin D 25-Hydroxy 58.1 (30.0-100.0) ng/ml Free T4 (0.76-1.46) ng/dL TSH 3rd Generation 6.318 H (0.358-3.74) uIU/mL 08/23/19 08/24/19 08/24/19 Range/Units 10:30 05:20 05:20 WBC 8.44 (3.98-10.04) K/mm3 RBC 2.93 L (3.98-5.22) M/mm3 Hgb 9.6 L (11.2-15.7) gm/dl Hct 30.2 L (34.1-44.9) % MCV 103.1 H (79.4-94.8) fl MCH 32.8 H (25.6-32.2) pg MCHC 31.8 L (32.2-35.5) g/dl RDW Std Deviation 47.9 H (36.4-46.3) fL Plt Count 194 (182-369) K/mm3 MPV 10.5 (9.4-12.3) fl Neut % (Auto) 75.5 H (34.0-71.1) % Lymph % (Auto) 10.8 L (19.3-51.7) % [place] % (Auto) 13.4 H (4.7-12.5) % Eos % (Auto) 0.1 L (0.7-5.8) Baso % (Auto) 0.1 (0.1-1.2) % Neut # (Auto) 6.37 H (1.56-6.13) K/mm3 Lymph # (Auto) 0.91 L (1.18-3.74) K/mm3 [place] # (Auto) 1.13 H (0.24-0.36) K/mm3 Eos # (Auto) 0.01 L (0.04-0.36) K/mm3 Baso # (Auto) 0.01 (0.01-0.08) K/mm3 Sodium 130 L (136-145) mEq/L Potassium 3.9 (3.5-5.1) mEq/L Chloride 94 L (98-107) mEq/L Carbon Dioxide 32 (21-32) mEq/L Anion Gap 7.9 (5-15) BUN 12 (7-18) mg/dL Creatinine 0.6 (0.55-1.02) mg/dL Est Cr Clr Drug Dosing 58.32 mL/min Estimated GFR (MDRD) > 60 (>60) mL/min BUN/Creatinine Ratio 20.0 H (14-18) Glucose 118 H (83-115) mg/dL Calcium 8.3 L (8.5-10.1) mg/dL Magnesium 1.7 L 2.0 (1.8-2.4) mg/dl Total Bilirubin 0.9 (0.2-1.0) mg/dL AST 18 (15-37) U/L ALT 19 (14-59) U/L Alkaline Phosphatase 67 (46-116) U/L Total Protein 5.7 L (6.4-8.2) g/dl Albumin 2.8 L (3.4-5.0) g/dl Globulin 2.9 gm/dL Albumin/Globulin Ratio 1.0 (1-2) Vitamin D 25-Hydroxy (30.0-100.0) ng/ml Free T4 0.99 (0.76-1.46) ng/dL TSH 3rd Generation (0.358-3.74) uIU/mL Med Orders - Current: Current Medications Acetaminophen (Tylenol) 650 mg PO Q4H PRN PRN Reason: Pain (Mild 1-3)/fever Last Admin: 08/24/19 05:43 Dose: 650 mg Documented by: Hydrocodone Bitart/Acetaminophen (Belding 325-5 Mg) 2 tab PO Q6H PRN PRN Reason: Pain (moderate 4-6) Last Admin: 08/23/19 08:43 Dose: 2 tab Documented by: Albuterol/Ipratropium (Duoneb 3.0-0.5 Mg/3 Ml) 3 ml NEB Q6HRRT PRN PRN Reason: wheezing/SOB/cough Cholecalciferol (Vitamin D3) 5,000 unit PO DAILY [facility] Last Admin: 08/24/19 08:20 Dose: 5,000 unit Documented by: Duloxetine HCl (Cymbalta) 20 mg PO DAILY [facility] Last Admin: 08/24/19 08:20 Dose: 20 mg Documented by: Losartan Potassium (Cozaar) 50 mg PO QAM [facility] Last Admin: 08/24/19 08:16 Dose: 50 mg Documented by: Magnesium Oxide (Magnesium Oxide) 800 mg PO BID [facility] Last Admin: 08/24/19 08:16 Dose: 800 mg Documented by: Metoprolol Tartrate (Lopressor) 100 mg PO BID [facility] Last Admin: 08/24/19 10:34 Dose: Not Given Documented by: Ondansetron HCl (Zofran Odt) 8 mg PO Q6H PRN PRN Reason: Nausea/Vomiting Last Admin: 08/23/19 12:52 Dose: 8 mg Documented by: Pantoprazole Sodium (Protonix) 40 mg PO ACBRK [facility] Last Admin: 08/24/19 05:42 Dose: 40 mg Documented by: Rosuvastatin Calcium (Crestor) 5 mg PO BEDTIME [facility] Last Admin: 08/23/19 20:03 Dose: 5 mg Documented by: Senna (Senna) 8.6 mg PO DAILY PRN PRN Reason: Constipation Senna/Docusate Sodium (Senna Plus) 2 tab PO BEDTIME [facility] Last Admin: 08/23/19 20:50 Dose: Not Given Documented by: Simethicone (Simethicone) 80 mg PO Q6H PRN PRN Reason: Gas/Bloating Last Admin: 08/23/19 18:17 Dose: 80 mg Documented by: Discontinued Medications Amlodipine Besylate (Norvasc) 10 mg PO DAILY [facility] Al Hydroxide/Mg Hydroxide 30 (ml/ Lidocaine HCl 15 ml) 0 ml PO ONETIME ONE Stop: 08/23/19 19:40 Last Admin: 08/23/19 20:03 Dose: 30 ml Documented by: Hydromorphone HCl (Dilaudid) 0.25 mg IVPUSH ONETIME ONE Stop: 08/22/19 11:39 Last Admin: 08/22/19 11:45 Dose: 0.25 mg Documented by: Magnesium Sulfate 2 gm/ Premix 50 mls @ 25 mls/hr IV ONETIME ONE Stop: 08/23/19 14:16 Last Admin: 08/23/19 13:27 Dose: Not Given Documented by: Non-Formulary Medication (Sodium Chloride [Sodium Chloride]) 1,000 mg PO BID [facility] Stop: 08/23/19 21:01 - Exam General: Reports: Alert, Oriented HEENT: Reports: Pupils Equal, Pupils Reactive, EOMI, Mucous Membr. Moist/[place] Neck: Reports: Supple Lungs: Reports: Clear to Auscultation, Normal Respiratory Effort Cardiovascular: Reports: Regular Rate, Regular Rhythm GI/Abdominal Exam: Normal Bowel Sounds, Soft, Non-Tender, No Organomegaly, No Distention, No Abnormal Bruit, No Mass, Pelvis Stable (Female) Exam: Normal External Exam, Normal Speculum Exam, Normal Bimanual Exam Rectal (Female) Exam: Normal Exam, Normal Rectal Tone Back Exam: Reports: Normal Inspection, Full Range of Motion Extremities: Normal Inspection, Normal Range of Motion, Non-Tender, No Pedal Edema, Normal Capillary Refill Skin: Reports: Warm, Dry, Intact Wound/Incisions: Reports: Healing Well Neurological: Reports: No New Focal Deficit Psy/Mental Status: Reports: Alert, Normal Affect, Normal Mood
== END 2019-08-24 12:45 | disposition home or self-care (01) ==
LOC: JD.ED 09:50 → JD.ICU 13:10 → JD.MS 15:29
PROVIDERS: ADMIT Pediatrics; ATTEND Pediatrics
DX: S42.202A Unspecified fracture of upper end of left humerus, initial encounter for closed fracture (principal); I11.9 Hypertensive heart disease without heart failure; K21.9 Gastro-esophageal reflux disease without esophagitis; G89.29 Other chronic pain; G43.909 Migraine, unspecified, not intractable, without status migrainosus; F41.9 Anxiety disorder, unspecified; F32.9 Major depressive disorder, single episode, unspecified; G47.00 Insomnia, unspecified; J44.9 Chronic obstructive pulmonary disease, unspecified; D64.9 Anemia, unspecified; E78.5 Hyperlipidemia, unspecified; E87.1 Hypo-osmolality and hyponatremia; M19.90 Unspecified osteoarthritis, unspecified site; I48.0 Paroxysmal atrial fibrillation; G62.9 Polyneuropathy, unspecified; M35.3 Polymyalgia rheumatica; E83.42 Hypomagnesemia; E05.90 Thyrotoxicosis, unspecified without thyrotoxic crisis or storm; S40.029A Contusion of unspecified upper arm, initial encounter; M81.0 Age-related osteoporosis without current pathological fracture; Z79.899 Other long term (current) drug therapy; Z79.01 Long term (current) use of anticoagulants; Z95.0 Presence of cardiac pacemaker; Z88.0 Allergy status to penicillin; Z96.641 Presence of right artificial hip joint; Z82.49 Family history of ischemic heart disease and other diseases of the circulatory system; Z87.891 Personal history of nicotine dependence; Z87.828 Personal history of other (healed) physical injury and trauma; Z86.79 Personal history of other diseases of the circulatory system; Z87.738 Personal history of other specified (corrected) congenital malformations of digestive system; Y92.002 Bathroom of unspecified non-institutional (private) residence as the place of occurrence of the external cause; W19.XXXA Unspecified fall, initial encounter; Z87.440 Personal history of urinary (tract) infections
CPT/HCPCS: 36415; 70450; 73030; 80053; 82306; 83735; 84439; 84443; 85025; 96374; 97110; 97161; 97165; 97535; 99285; A9270; G0378; J1170; 99217; 99219; 99225

== ENCOUNTER 2019-08-27 14:40 | Emergency (ER) | payer MEDICARE, BC ==
[2019-08-27 15:22] VITALS: BP 128/53; PULSE 58
--- NOTE | 2019-08-27 16:45 | EDM.PDOC ---
ED HPI GENERAL MEDICAL PROBLEM - General Chief Complaint: Upper Extremity Injury/Pain Stated Complaint: BRUISE CHECK Time Seen by Provider: 08/27/19 15:22 Source of Information: Reports: Patient, Family (daughter) - History of Present Illness INITIAL COMMENTS - FREE TEXT/NARRATIVE: 89 year old female is brought to ED by family member with concern about large amount of swelling and bruising L arm status post fall and fx of proximal humerus 5 days prior. She was admitted to the hospital for a day or 2 prior to discharge home. She is using a sling and swathe for immobilization. She is on eliquis blood thinner. No chest pain or diffiulty breathing. Hard to keep arm elevated when she is lying or sitting in a reclined position. Has continued to take her eliquis apparently for heart rythm problems in the past. Treatments INSTRUMENT CHECKER: Reports: Other (see below) Other Treatments INSTRUMENT CHECKER: tylenol 0900 x 2 tabs Left Arm Pain Score (Numeric/FACES): 9 - Related Data Allergies Allergy/AdvReac Type Severity Reaction Status Date / Time Penicillins Allergy Severe Rash Verified 08/27/19 15:06 Home Meds: Home Meds Triamcinolone Acetonide [Triamcinolone Acetonide 0.1% Crm] 1 dose TOP ASDIRECTED PRN 01/13/18 [History] Apixaban [Eliquis] 5 mg PO BID 04/03/19 [History] Fluticasone Propionate [Flonase] 1 dose NASBOTH BID PRN 04/03/19 [History] Sodium Chloride 1,000 mg PO BID PRN 04/03/19 [History] Loratadine 10 mg PO ASDIRECTED PRN 04/06/19 [History] Ketotifen Fumarate [Zaditor] 1 drop EYEBOTH ASDIRECTED PRN 08/22/19 [History] Acetaminophen [Tylenol] 650 mg PO Q4H PRN tablet 08/24/19 [Rx] Cholecalciferol (Vitamin D3) [Vitamin D3] 5,000 unit PO DAILY tablet 08/24/19 [Rx] DULoxetine [Cymbalta] 20 mg PO DAILY cap 08/24/19 [Rx] Pantoprazole [ProTONIX] 40 mg PO DAILY 28 Days tab.cr 08/24/19 [Rx] Rosuvastatin [Crestor] 5 mg PO BEDTIME tablet 08/24/19 [Rx] Acetaminophen/HYDROcodone [[place] 325-5 MG] 1 tab PO Q6H PRN 08/27/19 [History] Docusate Sodium/Sennosides [Senna Plus] 2 tab PO BID 08/27/19 [History] Metoprolol Tartrate [Lopressor] 100 mg PO BID 08/27/19 [History] amLODIPine [Norvasc] 2.5 mg PO BID 08/27/19 [History] Past Medical History HEENT 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: Hard of Hearing, Impaired Vision Other HEENT History: 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 Cardiovascular 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: Arrhythmia, Pacemaker Respiratory 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: Other (See Below) Other Respiratory History: cough Gastrointestinal 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: GERD Other Gastrointestinal History: bloating, small intestine bacterial overgrowth, nausea and vomiting Genitourinary 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: UTI, Recurrent 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 TRANSMISSION ENGINEER 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: Other ELECTRICAL TRANSMISSION ENGINEER History: endometrial thickening, atrophic vaginitis, vaginal pruritis, pelvic pain Musculoskeletal 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: Back Pain, Chronic, Other (See Below) Other Musculoskeletal History: spinal stinosis repair Neurological 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: Migraines Other Neuro History: 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, increasing headaches/head pains Psychiatric 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: Anxiety, Depression, Other (See Below) Other Psychiatric History: insomnia Endocrine/Metabolic 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: Other (See Below) Other Endocrine/Metabolic History: inappropriate ADH production Hematologic 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: Anemia Other Hematologic History: hyponatremia Immunologic 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: None Oncologic (Cancer) 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: None Dermatologic 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: Other (See Below) Other Dermatologic History: pruritis, seborrheic keratosis - Past Surgical History Female Surgical 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: None Neurological Surgical 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: None Other Musculoskeletal Surgeries/Procedures:: right hip replacement 7 years ago; humerous fracture Oncologic Surgical 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: None Dermatological Surgical 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: None Social & Family History - Family History Family Medical History: Noncontributory Cardiac: Reports: CAD Oncologic: Reports: Breast - Tobacco Use Smoking Status *Q: Former Smoker Used Tobacco, but Quit: Yes Month/Year Tobacco Last Used: 1989 - Caffeine Use Caffeine Use: Reports: Coffee Caffeine Use Comment: 2 cups/day - Recreational Drug Use Recreational Drug Use: No - Living Situation & Occupation Living situation: Reports: Occupation: Retired Review of Systems - Review of Systems Review Of Systems: See Below Constitutional: Denies: Chills, Diaphoresis, Fever Mouth/Throat: Reports: No Symptoms Respiratory: Denies: Shortness of Breath Cardiovascular: Denies: Chest Pain Musculoskeletal: Reports: Joint Pain (has pain L shoulder with any motion of the arm), Other (very large amount of diffuse swelling and bruising L lower upper arm, entire forearm with mild swelling of hand as well but no bruising of hand.) Skin: Reports: Bruising (L arm) Neurological: Denies: Numbness, Tingling ED EXAM, GENERAL - Physical Exam Exam: See Below General Appearance: Alert, No Apparent Distress Eye Exam: Bilateral Eye: PERRL Throat/Mouth: Normal Inspection Head: Atraumatic Neck: Supple Respiratory/Chest: No Respiratory Distress, Lungs Clear Cardiovascular: Regular Rate, Rhythm GI/Abdominal: Soft, Non-Tender Extremities: Other (very large amount of bruising and swelling distal upper arm, entire lower arm, mild swelling of hand, good cap refill distal fingers, good radial pulse, shoulder not swollen, very mild tenderness anterior and lateral shoulder) Course - Vital Signs Last Recorded V/S: Last Vital Signs Temp 97.1 F 08/27/19 15:19 Pulse 58 L 08/27/19 15:19 Resp 20 08/27/19 15:19 BP 128/53 L 08/27/19 15:19 Pulse Ox 96 08/27/19 15:19 - Re-Assessments/Exams Free Text/Narrative Re-Assessment/Exam: 08/27/19. I did review her Xrays from 5 days ago, fx looks impacted, no significant displacement so fx should be relatively stable. She has an Orth appt. for this next SaturdayAugust 31. She has PT coming to her home 11:00 tomorrow morning. We did rah wrap her lower and upper arm to provide some compression. Hopefully PT can help her in a better way with that tomorrow. I did discuss with her and family the importance of getting the arm and forearm elevated at or above chest level as much as possible. [facility] as needed. See Dr Corbin next Saturday as planned. Return to ED as needed. Departure - Departure Time of Disposition: 16:42 Disposition: Home, Self-Care 01 Condition: Fair Clinical Impression: Fracture closed, humerus Qualifiers: Encounter type: subsequent encounter Humerus Location: proximal Fracture alignment: nondisplaced Laterality: right - Discharge Information Instructions: Intramedullary Nailing of Humeral Shaft Fracture Referrals: Jennifer Hayes PA-C [Primary Care Provider] - Forms: ED Department Discharge Additional Instructions: Stop the eliquis tonight and for the next 3 days. Rah wrap, ice packs frequently throughout the day, elevated entire arm to above chest level as best you can as much as you can. Rotating onto your R side will help with that. Pt tomorrow morning as planned. Ortho appointment early next week as planned. Sepsis Event Note (ED) - Evaluation Sepsis Screening Result: No Definite Risk
== END 2019-08-27 17:23 | disposition home or self-care (01) ==
LOC: JD.ED 14:40
DX: S42.202A Unspecified fracture of upper end of left humerus, initial encounter for closed fracture (principal); K21.9 Gastro-esophageal reflux disease without esophagitis; F41.9 Anxiety disorder, unspecified; F32.9 Major depressive disorder, single episode, unspecified; Z87.891 Personal history of nicotine dependence; Z88.0 Allergy status to penicillin; Z79.01 Long term (current) use of anticoagulants; Z79.899 Other long term (current) drug therapy; W19.XXXA Unspecified fall, initial encounter
CPT/HCPCS: 99283

== ENCOUNTER 2019-12-23 17:28 | Emergency (ER) | payer MEDICARE, BC ==
[2019-12-23 17:35] VITALS: BP 182/69; PULSE 63
--- NOTE | 2019-12-23 17:38 | EDM.PDOC ---
<Salinas Mitchell - Last Filed: 12/23/19 20:47> ED HPI GENERAL MEDICAL PROBLEM - General Chief Complaint: Back Pain or Injury Stated Complaint: FELL CAN'T STAND OR WALK Time Seen by Provider: 12/23/19 17:34 - History of Present Illness INITIAL COMMENTS - FREE TEXT/NARRATIVE: 89-year-old female presents the emergency room with left elbow pain and severe lower back pain. Around 3:00 this afternoon the patient fell in the garage took about 15 minutes to get herself up and now she has difficulty moving. All her pain is over on the left side except lower back pain. Patient denies any other injury with this most unfortunate event. Patient did not strike her head. And has no other complaints at this time. Patient fell back and August it took her a while to get her shoulder back. Patient has had no loss of bowel or bladder control. No pain extending into her legs. Lower Back Pain Score (Numeric/FACES): 8 Left Elbow Pain Score (Numeric/FACES): 6 - Related Data Allergies Allergy/AdvReac Type Severity Reaction Status Date / Time Penicillins Allergy Severe Rash Verified 12/23/19 17:35 Home Meds: Home Meds Triamcinolone Acetonide [Triamcinolone Acetonide 0.1% Crm] 1 dose TOP ASDIRECTED PRN 01/13/18 [History] Apixaban [Eliquis] 5 mg PO BID 04/03/19 [History] Fluticasone Propionate [Flonase] 1 dose NASBOTH BID PRN 04/03/19 [History] Loratadine 10 mg PO ASDIRECTED PRN 04/06/19 [History] Ketotifen Fumarate [Zaditor] 1 drop EYEBOTH ASDIRECTED PRN 08/22/19 [History] Acetaminophen [Tylenol] 650 mg PO Q4H PRN tablet 08/24/19 [Rx] Cholecalciferol (Vitamin D3) [Vitamin D3] 5,000 unit PO DAILY tablet 08/24/19 [Rx] DULoxetine [Cymbalta] 20 mg PO DAILY cap 08/24/19 [Rx] Pantoprazole [ProTONIX] 40 mg PO DAILY 28 Days tab.cr 08/24/19 [Rx] Rosuvastatin [Crestor] 5 mg PO BEDTIME tablet 08/24/19 [Rx] Docusate Sodium/Sennosides [Senna Plus] 2 tab PO BID 08/27/19 [History] Metoprolol Tartrate [Lopressor] 100 mg PO BID 08/27/19 [History] amLODIPine [Norvasc] 2.5 mg PO BID 08/27/19 [History] Past Medical History HEENT 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: Hard of Hearing, Impaired Vision Other HEENT History: 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 Cardiovascular 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: Arrhythmia, Pacemaker Respiratory 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: Other (See Below) Other Respiratory History: cough Gastrointestinal 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: GERD Other Gastrointestinal History: bloating, small intestine bacterial overgrowth, nausea and vomiting Genitourinary 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: UTI, Recurrent 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: Other CUSTOMS AND BORDER PROTECTION OFFICER History: endometrial thickening, atrophic vaginitis, vaginal pruritis, pelvic pain Musculoskeletal 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: Back Pain, Chronic, Other (See Below) Other Musculoskeletal History: spinal stinosis repair Neurological 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: Migraines Other Neuro History: 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, increasing headaches/head pains Psychiatric 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: Anxiety, Depression, Other (See Below) Other Psychiatric History: insomnia Endocrine/Metabolic 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: Other (See Below) Other Endocrine/Metabolic History: inappropriate ADH production Hematologic 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: Anemia Other Hematologic History: hyponatremia Immunologic 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: None Oncologic (Cancer) 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: None Dermatologic 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: Other (See Below) Other Dermatologic History: pruritis, seborrheic keratosis - Past Surgical History Female Surgical 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: None Neurological Surgical 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: None Other Musculoskeletal Surgeries/Procedures:: right hip replacement 7 years ago; humerous fracture Oncologic Surgical 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: None Dermatological Surgical 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: None Social & Family History - Family History Family Medical History: Noncontributory Cardiac: Reports: CAD Oncologic: Reports: Breast - Caffeine Use Caffeine Use: Reports: Coffee Caffeine Use Comment: 2 cups/day - Living Situation & Occupation Living situation: Reports: Occupation: Retired ED ROS GENERAL - Review of Systems Review Of Systems: See Below Constitutional: Reports: No Symptoms HEENT: Reports: No Symptoms Respiratory: Reports: No Symptoms Cardiovascular: Reports: No Symptoms GI/Abdominal: Reports: No Symptoms : Reports: No Symptoms Musculoskeletal: Reports: Arm Pain, Back Pain Skin: Reports: No Symptoms Neurological: Reports: No Symptoms ED EXAM,LOWER BACK PAIN/INJURY - Physical Exam Exam: See Below Exam Limited By: No Limitations General Appearance: Alert, No Apparent Distress, Other (It is quite difficult for the patient to move around secondary to pain mostly in her lower back) Head: Atraumatic, Normocephalic Neck: Normal Inspection, Supple, Non-Tender, Full Range of Motion. No: Lymphadenopathy (L), Lymphadenopathy (R) Respiratory/Chest: No Respiratory Distress, Lungs Clear, Normal Breath Sounds Cardiovascular: Regular Rate, Rhythm, No Edema, No Murmur GI/Abdominal: Normal Bowel Sounds, Soft, Non-Tender Back Exam: Normal Inspection, Vertebral Tenderness (In the lower lumbar and in the sacral area. This favors just to the left sided midline) Extremities: No Pedal Edema, Other (Significant discomfort around the left elbow. However she can fully extend this supinate and pronate this she has a little bit of swelling over the olecranon bursa) Neurological: Alert, Normal Mood/Affect, No Motor/Sensory Deficits ED LACERATION/WOUND PROCEDURES - Splinting Left Upper Extremity Pre-procedure NV status: Normal Post-procedure NV status: Normal Splint Material: Fiberglass Splint Design: Posterior Applied & Form Fitted By: Provider Provider Post-Splint Application NV Check: NV Status Normal Complications: No Progress/Comments: Posterior splint, long-arm was placed without difficulty. She was then placed in a sling. Course - Re-Assessments/Exams Free Text/Narrative Re-Assessment/Exam: 12/23/19 20:47 Unfortunately this time we have no beds to send her to in this hospital. The patient has fractures the left superior and inferior pubic ramus. And is unable to ambulate most likely related to this. Patient had x-rays done of her SI joint that were negative as well as her LS spine for acute changes she is got significant degenerative changes. With regards to her elbow her left elbow shows an olecranon fracture possibly pathologic there is a significant area of lucency between the 2 fragments. Case was discussed with Dr. Corbin, our orth opedic surgeon patient is placed in a posterior arm splint and a sling. And he would like to see her in about a week in the office. We have no hospital beds available here however we did discuss the situation with the hospital in [place] and they are kind enough to accept the patient transfer pending a negative coronavirus. Case discussed with Dr. Driver. There is also urinalysis pending with her inferior rami fracture when make sure she does not have any hematuria. Departure - Departure Time of Disposition: 20:54 Disposition: DC/Tfer to [facility] 02 Clinical Impression: Closed fracture of left olecranon process, Closed fracture of left inferior pubic ramus, Closed fracture of left superior pubic ramus - Discharge Information Referrals: Jennifer Hayes PA-C [Primary Care Provider] - Forms: ED Department Discharge Sepsis Event Note (ED) - Evaluation Sepsis Screening Result: No Definite Risk <Beau Kennedy - Last Filed: 12/23/19 21:59> Course - Vital Signs Last Recorded V/S: Last Vital Signs Temp 36.3 C 12/23/19 17:31 Pulse 63 12/23/19 17:31 Resp 16 12/23/19 17:31 BP 182/69 H 12/23/19 17:31 Pulse Ox 88 L 12/23/19 17:31 - Orders/Labs/Meds Orders: Active Orders 24 hr Category Date Time Status Insert Urinary Catheter [OM.PC] Stat Care 12/23/19 20:55 Ordered Urinary Catheter Assessment [RC] ASDIRECTED Care 12/23/19 21:04 Active Elbow Min 3V Lt [CR] Stat Exams 12/23/19 17:56 Taken Lumbar Spine 2 or 3V [CR] Stat Exams 12/23/19 17:56 Taken Sacroiliac Joint Min 3V [CR] Stat Exams 12/23/19 17:56 Taken DME for Discharge [COMM] Routine Oth 12/23/19 21:03 Ordered Labs: Laboratory Tests 12/23/19 12/23/19 Range/Units 20:50 20:51 Urine Color Yellow (Yellow) Urine Appearance Clear (Clear) Urine pH 7.5 (5.0-8.0) Ur Specific [place] 1.020 (1.005-1.030) Urine Protein Trace H (Negative) Urine Glucose (UA) Negative (Negative) Urine Ketones Trace H (Negative) Urine Occult Blood Trace-intact H (Negative) Urine Nitrite Negative (Negative) Urine Bilirubin Negative (Negative) Urine Urobilinogen 0.2 (0.2-1.0) Ur Leukocyte Esterase Negative (Negative) Urine RBC 5-10 H (0-5) /hpf Urine WBC 0-5 (0-5) /hpf Ur Squamous Epith Cells 0-5 (0-5) /hpf Amorphous Sediment Moderate H (NOT SEEN) /hpf Urine Bacteria Few (FEW) /hpf Urine Mucus Not seen (FEW) /hpf SARS-CoV-2 RNA (MAX) Negative (NEGATIVE) Meds: Medications Discontinued Medications Generic Name Dose Route Start Last Admin Trade Name Ralf PRN Reason Stop Dose Admin Morphine Sulfate 2 mg 12/23/19 17:55 12/23/19 18:38 Morphine IM 12/23/19 17:56 2 mg ONETIME ONE Administration Morphine Sulfate 4 mg 12/23/19 20:50 12/23/19 20:54 Morphine IM 12/23/19 20:51 4 mg ONETIME ONE Administration Morphine Sulfate Confirm 12/23/19 20:52 12/23/19 21:03 Morphine Administered 12/23/19 20:53 Not Given Dose 4 mg .ROUTE .STK-MED ONE - Re-Assessments/Exams Free Text/Narrative Re-Assessment/Exam: 12/23/19 21:58 Covid 19 screen is negative. Sepsis Event Note (ED) - Focused Exam Vital Signs: Vital Signs Temp Pulse Resp BP Pulse Ox 12/23/19 17:31 36.3 C 63 16 182/69 H 88 L
[2019-12-23] MEDS ORDERED: Morphine 2 MG/ML SYRINGE IM ONE (17:55)
[2019-12-23] MEDS ORDERED: Morphine 4 MG/ML Syringe IM ONE (20:50)
[2019-12-23] MEDS ORDERED: Morphine 4 MG/ML Syringe ONE (20:52)
--- NOTE | 2019-12-24 08:52 | CR ---
PROCEDURE INFORMATION: Exam: XR Lumbosacral Spine, 2 or 3 Views Exam date and time: 12/23/2019 6:13 PM Age: 89 years old Clinical indication: Low back pain; Patient HX: Fall TECHNIQUE: Imaging protocol: XR of the lumbosacral spine, 2 or 3 views. COMPARISON: CR Lumbar Spine 2 or 3V 11/01/2016 3:58 PM FINDINGS: Bones/joints: Diffuse osteopenia. Intervertebral disc space narrowing at L4-L5. Minimal anterolisthesis of L3 on L4 and L4 on L5 stable. Normal lumbar vertebral body heights. Soft tissues: Unremarkable. Vasculature: Extensive calcification of the abdominal aorta. IMPRESSION: 1. No acute process. 2. Lumbar spondylosis as above. Thank you for allowing us to participate in the care of your patient. Dictated and Authenticated by: Demian Lewis MD 12/23/2019 8:16 PM Central Time ([place] & [place]) [facility]
--- NOTE | 2019-12-24 08:54 | CR ---
PROCEDURE INFORMATION: Exam: XR Bilateral Sacroiliac Joints, 3 or More Views Exam date and time: 12/23/2019 6:14 PM Age: 89 years old Clinical indication: Pain in coccyx area; Patient HX: Fall TECHNIQUE: Imaging protocol: XR Bilateral XR of the sacroiliac joints, 3 or more views. COMPARISON: CR Hip Min 1V w Pelvis Lt 04/06/2019 1:42 PM FINDINGS: Bones/joints: Bilateral hip arthroplasties in place. There are minimally displaced fractures involving the left superior and inferior pubic ramus. The sacral iliac joints appear symmetric. Soft tissues: Normal. IMPRESSION: Fractures left superior and inferior pubic ramus. Thank you for allowing us to participate in the care of your patient. Dictated and Authenticated by: Demian Lewis MD 12/23/2019 8:46 PM Central Time ([place] & [place]) [facility]ENTER[facility]
--- NOTE | 2019-12-24 08:55 | CR ---
PROCEDURE INFORMATION: Exam: XR Left Elbow Exam date and time: 12/23/2019 6:24 PM Age: 89 years old Clinical indication: Pain; Elbow; Left; Prior surgery; Surgery date: 6+ months TECHNIQUE: Imaging protocol: XR Left elbow. Views: 3 or more views. COMPARISON: No relevant prior studies available. FINDINGS: Bones/joints: There is an orthopedic screw traversing the radial head. There is an acute slightly comminuted displaced fracture through the olecranon process. Approximate 7 mm displacement of fracture fragments. Associated extensive posterior elbow soft tissue swelling. Soft tissues: Joint effusion IMPRESSION: Acute displaced fracture through the olecranon process of the elbow. There is some lucency in the region of the fracture suggesting the possibility of a pathologic fracture. Correlate with history/mechanism of injury. Thank you for allowing us to participate in the care of your patient. Dictated and Authenticated by: Demian Lewis MD 12/23/2019 8:49 PM Central Time ([place] & [place]) [facility]
== END 2019-12-23 22:50 ==
LOC: JD.ED 17:28
DX: S52.022A Displaced fracture of olecranon process without intraarticular extension of left ulna, initial encounter for closed fracture (principal); S32.592A Other specified fracture of left pubis, initial encounter for closed fracture; K21.9 Gastro-esophageal reflux disease without esophagitis; F41.9 Anxiety disorder, unspecified; F32.9 Major depressive disorder, single episode, unspecified; Z79.01 Long term (current) use of anticoagulants; Z88.0 Allergy status to penicillin; Z20.828 Contact with and (suspected) exposure to other viral communicable diseases; Z79.899 Other long term (current) drug therapy; W19.XXXA Unspecified fall, initial encounter
CPT/HCPCS: 29105; 51702; 72100; 72202; 73080; 81001; 96372; 99285; J2270; U0002; 99284